=== PATIENT | female | born 1965 | race Caucasian/White ===

== ENCOUNTER 2016-12-08 17:04 | Emergency (ER) | payer SELFPAY ==
[~2016-12-08] VITALS: Ht 157.5 cm; Wt 58.0 kg
[2016-12-08 17:05] VITALS: BP 126/88; PULSE 128; RESP 24; TEMP 97.8; O2SAT 99
[2016-12-08] MEDS ORDERED: SODIUM CHLOR 0.9% 1000 ML INJ 1,000 ML IV ONE ×2 (17:45→19:00)
[2016-12-08] MEDS ORDERED: oxyCODONE/ACETAMINOPHEN 5 MG/325 MG TAB PO ONE (17:45)
[2016-12-08 18:19] VITALS: BP 159/67; PULSE 103; RESP 18; O2SAT 97
[2016-12-08] MEDS ORDERED: GEMF600T PO (18:19)
[2016-12-08] MEDS ORDERED: ZOFR8TAB PO (18:19)
[2016-12-08] MEDS ORDERED: PROT40TA PO (18:19)
[2016-12-08] MEDS ORDERED: LEVS0.124 SL (18:19)
[2016-12-08] MEDS ORDERED: OMEG1CAP53 PO (18:19)
[2016-12-08] MEDS ORDERED: EFFE150C PO (18:19)
[2016-12-08] MEDS ORDERED: PROM25TA5 PO (18:19)
[2016-12-08 18:21] VITALS: BP 159/67; PULSE 103; RESP 18; O2SAT 97
[2016-12-08] MEDS ORDERED: CLON1TAB PO ×2 (18:24→20:31)
[2016-12-08] MEDS ORDERED: IMIT100T PO (18:24)
[2016-12-08] MEDS ORDERED: ELUX1TAB PO (18:24)
[2016-12-08] MEDS ORDERED: ESTR2TAB PO (18:24)
[2016-12-08] MEDS ORDERED: VALT500T PO (18:24)
[2016-12-08] MEDS ORDERED: PERC10TA27 PO (18:24)
--- NOTE | 2016-12-08 18:28 | PD ---
HPI Chief Complaint: Fall Time Seen by Provider: 17:21 Travel History International Travel<30 days: No Contact w/Intl Traveler<30days: No History of Present Illness HPI The patient's 51 years old. She arrives stating that she had a fall from standing 6 days ago. She states she had a head injury last year and had a CT done and thought there may have been swelling. She complains of chronic osteoarthritic pain involving the spine in the toes and hands. She reports a history of pain management. Outside records demonstrate hx panic attacks. Pt recently moved to the area she states and has been unable to obtain PMD follow up or pain management. Patient denies illicit drug abuse. She denies alcohol abuse. She complains of paresthesias in the upper extremities. PFSH Past Surgical History Hysterectomy: Yes Social History Tobacco Use: Yes Allergies-Medications (Allergen,Severity, Reaction): Coded Allergies: No Known Allergies (Unverified , 12/08/16) Reported Meds & Prescriptions Reported Meds & Active Scripts Active Clonazepam 1 Mg Tab 1 Mg PO BID PRN 7 Days Reported Percocet (Oxycodone-Acetaminophen) 10-325 mg Tab 1 Tab PO Q6H PRN Imitrex (Sumatriptan Succinate) 100 Mg Tab 100 Mg PO BID PRN If a satisfactory response has not been obtained at 2 hours, a second dose may be administered Estradiol 2 Mg Tab 2 Mg PO DAILY Valtrex (Valacyclovir HCl) 500 Mg Tab 500 Mg PO DAILY Viberzi (Eluxadoline) 75 Mg Tab 75 Mg PO BIDPC Zofran (Ondansetron HCl) 8 Mg Tab 8 Mg PO BID PRN Phenergan (Promethazine HCl) 25 Mg Tab 25 Mg PO BID PRN Protonix (Pantoprazole Sodium) 40 Mg Tab 40 Mg PO DAILY Effexor XR 24 HR (Venlafaxine HCl) 150 Mg Cap 300 Mg PO DAILY Levsin-SL (Hyoscyamine Sulfate) 0.125 Mg Subl 0.125 Mg SL Q4H PRN Gemfibrozil 600 Mg Tab 600 Mg PO BID Take 30 minutes prior to breakfast and dinner. Lovaza (Msiuv-9-Vovm Ethyl Esters) 1 Gm Cap 2 Gm PO BID Review of Systems Except as stated in HPI: all other systems reviewed are Neg General / Constitutional: No: Fever Physical Exam Narrative GENERAL: 51 yo female anxious, WNWD SKIN: Focused skin assessment warm/dry. HEAD: Atraumatic. Normocephalic. EYES: Pupils equal and round. No scleral icterus. No injection or drainage. ENT: No nasal bleeding or discharge. Mucous membranes pink and moist. NECK: Trachea midline. No JVD. CARDIOVASCULAR: Tachycardia. Regular rhythm. RESPIRATORY: No accessory muscle use. Clear to auscultation. Breath sounds equal bilaterally. GASTROINTESTINAL: Abdomen soft, non-tender, nondistended. Hepatic and splenic margins not palpable. MUSCULOSKELETAL: No obvious deformities. No clubbing. No cyanosis. No edema. NEUROLOGICAL: Awake and alert. No obvious cranial nerve deficits. Motor grossly within normal limits. Normal speech. PSYCHIATRIC: Anxious. Data Data Last Documented VS Vital Signs Date Time Temp Pulse Resp B/P Pulse Ox O2 Delivery O2 Flow Rate FiO2 12/08/16 19:53 96 16 149/65 99 Room Air 12/08/16 17:05 97.8 VS reviewed Orders Complete Blood Count With Diff (12/08/16 17:32) Comprehensive Metabolic Panel (12/08/16 17:32) Urinalysis - C+S If Indicated (12/08/16 17:32) Oximetry (12/08/16 17:32) Iv Access Insert/Monitor (12/08/16 17:32) Ecg Monitoring (12/08/16 17:32) Drug Screen, Random Urine (12/08/16 17:32) Alcohol (Ethanol) (12/08/16 17:32) Salicylates (Aspirin) (12/08/16 17:32) Tylenol (Acetaminophen) (12/08/16 17:32) Sodium Chlor 0.9% 1000 Ml Inj (Ns 1000 M (12/08/16 17:45) Oxycodone-Acetamin 5-325 Mg (Percocet (12/08/16 17:45) Lorazepam Inj (Ativan Inj) (12/08/16 19:00) Sodium Chlor 0.9% 1000 Ml Inj (Ns 1000 M (12/08/16 19:00) Urine Culture (12/08/16 17:45) Labs Laboratory Tests Test 12/08/16 17:45 Sodium Level 136 MEQ/L Potassium Level 4.0 MEQ/L Chloride Level 99 MEQ/L Carbon Dioxide Level 24.6 MEQ/L Anion Gap 12 MEQ/L Blood Urea Nitrogen 9 MG/DL Creatinine 0.90 MG/DL Estimat Glomerular Filtration 66 ML/MIN Rate Random Glucose 83 MG/DL Calcium Level 9.8 MG/DL Total Bilirubin 1.4 MG/DL Aspartate Amino Transf 181 U/L (AST/SGOT) Alanine Aminotransferase 102 U/L (ALT/SGPT) Alkaline Phosphatase 194 U/L Total Protein 8.8 GM/DL Albumin 4.3 GM/DL Salicylates Level LESS THAN 1.7 MG/DL Urine Opiates Screen NEG Acetaminophen Level LESS THAN 2.0 MCG/ML Urine Barbiturates Screen NEG Urine Amphetamines Screen NEG Urine Benzodiazepines Screen NEG Urine Cocaine Screen NEG Urine Cannabinoids Screen NEG Ethyl Alcohol Level LESS THAN 3 MG/DL White Blood Count 7.4 TH/MM3 Red Blood Count 3.75 MIL/MM3 Hemoglobin 14.1 GM/DL Hematocrit 41.0 % Mean Corpuscular Volume 109.4 FL Mean Corpuscular Hemoglobin 37.7 PG Mean Corpuscular Hemoglobin 34.5 % Concent Red Cell Distribution Width 14.3 % Platelet Count 239 TH/MM3 Mean Platelet Volume 8.9 FL Neutrophils (%) (Auto) 73.7 % Lymphocytes (%) (Auto) 18.2 % Monocytes (%) (Auto) 7.1 % Eosinophils (%) (Auto) 0.7 % Basophils (%) (Auto) 0.3 % Neutrophils # (Auto) 5.5 TH/MM3 Lymphocytes # (Auto) 1.3 TH/MM3 Monocytes # (Auto) 0.5 TH/MM3 Eosinophils # (Auto) 0.1 TH/MM3 Basophils # (Auto) 0.0 TH/MM3 CBC Comment DIFF FINAL Differential Comment Urine Color YELLOW Urine Turbidity HAZY Urine pH 6.0 Urine Specific Antler 1.019 Urine Protein TRACE mg/dL Urine Glucose (UA) NEG mg/dL Urine Ketones NEG mg/dL Urine Occult Blood NEG Urine Nitrite NEG Urine Bilirubin NEG Urine Urobilinogen 4.0 MG/DL Urine Leukocyte Esterase NEG Urine WBC 2 /hpf Urine Squamous Epithelial 1 /hpf Cells Urine Bacteria MANY /hpf Urine Hyaline Casts 4 /lpf Urine Mucus FEW /lpf Microscopic Urinalysis Comment CULTURE INDICATED MDM Medical Decision Making Medical Screen Exam Complete: Yes Emergency Medical Condition: Yes Differential Diagnosis Chronic pain, electrolyte imbalance, PSA, opioid withdrawal, benzodiazepine withdrawal, etoh withdrawal Narrative Course CBC & BMP Diagram 12/08/16 17:45 MCV 109 T bili 1.4 AST 181 ALT 102 Alk phos 194 Urine Drug Screen: barnett-negative EtOH < 3 APAP < 2.0 Salicylates < 1.7 Patient confers offensive statements to provider at time of reassessment at 740PM. She states again she was admitted to hospitals in the past. She offers that she is not here in search of opioids/narcotics. Previously she offers that Dilaudid was required to treat her pain. The patient arrives with rhinorrhea, tachycardia, piloerection and anxiety, a constellation of symptoms consistent with opioid and/or benzodiazepine withdrawal. The patient is familiar with specific dosing and various opioid agents. The patient's fall occurred 5 days ago such that her arrival today is somewhat atypical. She also notes drinking alcohol last night however denies etoh to RN and me initially. She asked the RN if she would get her scripts however did not mention medication refills to me. The patient began to negotiate and angrily disagree at the time of discussion for discharge plan. To within a reasonable degree of certainty and safety a true emergency has been excluded. We cannot manage her chronic pain issues with opioids. A short course of Klonopin is reasonable to prevent any potential benzodiazepine withdrawal. Referrals to providers in the area made available on discharge paperwork. Pt is AOx3 and competent to make decisions independently. At least 60 minutes of time was spent in conversation with the patient, reviewing the case with her RN, checking her records on [facility], and reassessing the patient. Diagnosis Primary Impression: Anxiety Additional Impressions: Fall Qualified Code: W19.XXXA - Fall, initial encounter Transaminitis Macrocytosis without anemia Referrals: Justino Candelario MD 2 days [facility] 2 days Additional Instructions: You have a choice when it comes to health care, and we are glad that you chose [facility]. Hopefully, we have met your expectations on today's visit. You are welcome to return to [facility] at any time, as we are committed to meeting the health care needs of our community. Med/Other Pt SpecificInfo: Prescription(s) given Scripts Clonazepam 1 Mg Tab1 Mg PO BID PRN (ANXIETY) 7 Days Ref 0 Prov:John Heck MD 12/08/16 Disposition: DISCHARGE HOME Condition: Stable John Heck. MD December 08, 2016 18:28
[2016-12-08 18:29] LABS: AUTOMATED NEUTROPHIL # 5.5 TH/MM3 (1.8-7.7); BASOPHIL % 0.3 % (0.0-2.0); EOSINOPHIL # 0.1 TH/MM3 (0-0.4); EOSINOPHIL % 0.7 % (0.0-4.0); HEMO FLAGS DIFF FINAL; LYMPH % 18.2 % (9.0-44.0); LYMPHOCYTE # 1.3 TH/MM3 (1.0-4.8); MEAN CELL VOLUME 109.4 FL (80.0-100.0); MEAN CORPUSCULAR HEMOGLOBIN 37.7 PG (27.0-34.0); MEAN CORPUSCULAR HGB CONC 34.5 % (32.0-36.0); MONO % 7.1 % (0.0-8.0); NEUT % 73.7 % (16.0-70.0); PLATELET COUNT 239 TH/MM3 (150-450); RED BLOOD COUNT 3.75 MIL/MM3 (4.00-5.30); RED CELL DISTRIBUTION WIDTH 14.3 % (11.6-17.2); WHITE BLOOD COUNT 7.4 TH/MM3 (4.0-11.0)
[2016-12-08 18:55] LABS: ANION GAP 12 MEQ/L (5-15)
[2016-12-08 18:58] LABS: ALKALINE PHOSPHATASE 194 U/L (45-117); ALT (GPT) 102 U/L (10-53); AST (GOT) 181 U/L (15-37); BICARBONATE 24.6 MEQ/L (21.0-32.0); BLOOD UREA NITROGEN 9 MG/DL (7-18); CHLORIDE 99 MEQ/L (98-107); GLOMERULAR FILTRATION RATE 66 ML/MIN (>89); SODIUM (NA) 136 MEQ/L (136-145); TOTAL BILIRUBIN ADULT 1.4 MG/DL (0.2-1.0)
[2016-12-08 18:59] LABS: BACTERIA, URINE MANY /hpf; BLOOD, URINE NEG (NEG); COMMENT (UR) CULTURE INDICATED; CULTURE IF INDICATED CULTURE INDICATED; GLUCOSE,URINE NEG (NEG); HYALINE CAST, URINE 4 /lpf (RARE); KETONE, URINE NEG (NEG); MUCUS URINE FEW /lpf (OCC); NITRITE,URINE NEG (NEG); SQUAMOUS EPITHELIAL CELL URINE 1 /hpf (0-5); URINE COLOR YELLOW (YELLW/STRAW)
[2016-12-08] MEDS ORDERED: LORazepam 2 MG/ML VIAL IV PUSH ONE (19:00)
[2016-12-08 19:04] LABS: ACETAMINOPHEN LESS THAN 2.0 MCG/ML (10.0-30.0)
[2016-12-08 19:21] LABS: AMPHETAMINE, URINE NEG (NEG); BARBITURATES, URINE NEG (NEG); COCAINE, URINE NEG (NEG)
[2016-12-08 19:53] VITALS: BP 149/65; PULSE 96; RESP 16; O2SAT 99
== END 2016-12-08 21:21 | disposition home or self-care (01) ==
LOC: NEPD 17:04
DX: F41.9 Anxiety disorder, unspecified (principal); D75.89 Other specified diseases of blood and blood-forming organs; R74.0 Nonspecific elevation of levels of transaminase and lactic acid dehydrogenase [LDH]; N39.0 Urinary tract infection, site not specified; B96.20 Unspecified Escherichia coli [E. coli] as the cause of diseases classified elsewhere; Z79.899 Other long term (current) drug therapy
CPT/HCPCS: 80053; 80307; 81001; 85025; 87077; 87086; 87186; 96361; 96374; 99284; J2060; J7030

== ENCOUNTER 2017-05-31 00:52 | Inpatient (IN) | payer OTHER ==
[2017-05-31] VITALS (12 sets, daily range): BP systolic 107–175; BP diastolic 57–92; PULSE 84–119; RESP 18–22; TEMP 98–98.6; O2SAT 95–98
[~2017-05-31] VITALS: Ht 157.5 cm; Wt 66.0 kg
[~2017-05-31 00:52] MED LIST: CLON1TAB PO; EFFE150C PO; ELUX1TAB PO; ESTR2TAB PO; GEMF600T PO; IMIT100T PO; LEVS0.124 SL; OMEG1CAP53 PO; PERC10TA27 PO; PROM25TA5 PO; PROT40TA PO; VALT500T PO; ZOFR8TAB PO
[2017-05-31] MEDS ORDERED: LEVO50TA4 PO (01:41)
[2017-05-31] MEDS ORDERED: SODIUM CHLOR 0.9% 1000 ML INJ 1,000 ML IV SCH ×3 (01:44→04:14)
[2017-05-31] MEDS ORDERED: ONDANSETRON HCL 4 MG/2 ML VIAL IVP ONE (01:45)
[2017-05-31] MEDS ORDERED: SODIUM CHLORIDE 0.9% FLUSH 10 ML FLUSH IV FLUSH PRN (01:45)
--- NOTE | 2017-05-31 01:53 | PD ---
HPI Chief Complaint: Abdominal Pain Time Seen by Provider: 01:44 Travel History International Travel<30 days: No Contact w/Intl Traveler<30days: No Traveled to known affect area: No History of Present Illness HPI 52-year-old female here for evaluation of generalized malaise, nausea, vomiting , generalized pain, abdominal pain. Patient reports symptoms have been going on for just less than a week. Emesis is bilious. She is not sure when she had her last bowel movement. She has had similar symptoms in the past when she was diagnosed with pyelonephritis. She has felt chills, but is unsure if she has had a fever. History of cholecystectomy, hysterectomy, section, tummy tuck. Pain is diffuse, severe, described as sharp/cramping. PFSH Past Medical History Arthritis: Yes Anxiety: Yes Diverticulitis: Yes GERD: Yes Genitourinary: Yes (KIDNEY INFECTIONS) Thyroid Disease: Yes (HYPO ) Triglycerides - High: Yes Tetanus Vaccination: > 5 Years Influenza Vaccination: No ?: Not Tubal Ligation: Yes Past Surgical History Section: Yes Cholecystectomy: Yes Hysterectomy: Yes Other Surgery: Yes (TUMMY TUCK, RHINOPLASTY, BREAST AUGMENTATION) Social History Alcohol Use: No Tobacco Use: No Substance Use: No Allergies-Medications (Allergen,Severity, Reaction): Coded Allergies: NSAIDS (Non-Steroidal Anti-Inflamma (Verified Adverse Reaction, Intermediate, Nausea/Vomiting, 05/31/17) metronidazole (Verified Adverse Reaction, Intermediate, Nausea/Vomiting, 05/31/17) Reported Meds & Prescriptions Reported Meds & Active Scripts Active Clonazepam 1 Mg Tab 1 Mg PO BID PRN 7 Days Reported Levothyroxine (Levothyroxine Sodium) 50 Mcg Tab 50 Mcg PO DAILY Percocet (Oxycodone-Acetaminophen) 10-325 mg Tab 1 Tab PO Q6H PRN Imitrex (Sumatriptan Succinate) 100 Mg Tab 100 Mg PO BID PRN If a satisfactory response has not been obtained at 2 hours, a second dose may be administered Valtrex (Valacyclovir HCl) 500 Mg Tab 500 Mg PO DAILY Zofran (Ondansetron HCl) 8 Mg Tab 8 Mg PO BID PRN Effexor XR 24 HR (Venlafaxine HCl) 150 Mg Cap 300 Mg PO DAILY Levsin-SL (Hyoscyamine Sulfate) 0.125 Mg Subl 0.125 Mg SL Q4H PRN Gemfibrozil 600 Mg Tab 600 Mg PO BID Take 30 minutes prior to breakfast and dinner. Lovaza (Hcloh-8-Nvuz Ethyl Esters) 1 Gm Cap 2 Gm PO BID Review of Systems Except as stated in HPI: all other systems reviewed are Neg Physical Exam Narrative GENERAL: Well-developed, well-nourished, tearful, SKIN: Focused skin assessment warm/dry. HEAD: Atraumatic. Normocephalic. EYES: Pupils equal and round. No scleral icterus. No injection or drainage. ENT: Mucous membranes pink and moist. NECK: Trachea midline. No JVD. No nuchal rigidity. CARDIOVASCULAR: Tachycardic, regular. RESPIRATORY: No accessory muscle use. Clear to auscultation. Breath sounds equal bilaterally. GASTROINTESTINAL: Abdomen soft, nondistended. Mild diffuse tenderness without peritoneal signs. MUSCULOSKELETAL: No obvious deformities. No clubbing. No cyanosis. No edema. NEUROLOGICAL: Awake and alert. No obvious cranial nerve deficits. Motor grossly within normal limits. Normal speech. PSYCHIATRIC: Appropriate mood and affect; insight and judgment normal. Data Data Last Documented VS Vital Signs Date Time Temp Pulse Resp B/P (MAP) Pulse Ox O2 Delivery O2 Flow Rate FiO2 05/31/17 04:00 100 18 146/65 (92) 98 Room Air 05/31/17 00:53 98.5 Orders Orders Complete Blood Count With Diff (05/31/17 01:44) Comprehensive Metabolic Panel (05/31/17 01:44) Lipase (05/31/17 01:44) Prothrombin Time / Inr (Pt) (05/31/17 01:44) Act Partial Throm Time (Ptt) (05/31/17 01:44) Urinalysis - C+S If Indicated (05/31/17 01:44) Iv Access Insert/Monitor (05/31/17 01:44) Ecg Monitoring (05/31/17 01:44) Oximetry (05/31/17 01:44) Ondansetron Inj (Zofran Inj) (05/31/17 01:45) Sodium Chlor 0.9% 1000 Ml Inj (Ns 1000 M (05/31/17 01:44) Sodium Chloride 0.9% Flush (Ns Flush) (05/31/17 01:45) Thyroid Stimulating Hormone (10/26/17 01:44) Morphine Inj (Morphine Inj) (05/31/17 02:00) Ct Abd/Pel W Iv Contrast(Rout) (05/31/17 01:49) Sodium Chlor 0.9% 1000 Ml Inj (Ns 1000 M (05/31/17 01:49) Urine Culture (05/31/17 01:50) Ckmb (Isoenzyme) Profile (05/31/17 02:52) Troponin I (05/31/17 02:52) Alcohol (Ethanol) (05/31/17 02:52) Lorazepam Inj (Ativan Inj) (05/31/17 03:00) Tylenol (Acetaminophen) (05/31/17 02:52) Electrocardiogram (05/31/17 ) Ceftriaxone Inj (Rocephin Inj) (05/31/17 03:00) Iohexol 350 Inj (Omnipaque 350 Inj) (05/31/17 03:10) CKMB (05/31/17 01:40) CKMB% (05/31/17 01:40) Morphine Inj (Morphine Inj) (05/31/17 04:00) Admit Order (Ed Use Only) (05/31/17 04:16) Place In Observation (05/31/17 ) Vital Signs (Adult) Q4H (05/31/17 04:14) Activity Oob Ad Kiesha (05/31/17 04:14) Lead Simulation Modeling Engineer / Telemetry .CONTINUOUS (05/31/17 04:14) Intake + Output PATRICIA.QSHIFT (05/31/17 04:14) Diet Regular Basic (05/31/17 Breakfast) Sodium Chlor 0.9% 1000 Ml Inj (Ns 1000 M (05/31/17 04:14) Sodium Chloride 0.9% Flush (Ns Flush) (05/31/17 04:15) Sodium Chloride 0.9% Flush (Ns Flush) (05/31/17 09:00) Ondansetron Inj (Zofran Inj) (05/31/17 04:15) Comprehensive Metabolic Panel (06/01/17 06:00) Complete Blood Count With Diff (06/01/17 06:00) Prothrombin Time / Inr (Pt) (06/01/17 06:00) Scd Bilateral/Knee High PATRICIA.BID (05/31/17 04:14) Armando Bilateral/Knee High PATRICIA.QSHIFT (05/31/17 04:16) Acetaminophen (Tylenol) (05/31/17 04:15) Morphine Inj (Morphine Inj) (05/31/17 04:15) Oxycodone (Roxicodone) (05/31/17 04:15) Docusate Sodium-Senna (Beatriz-Colace) (05/31/17 09:00) Magnesium Hydroxide Liq (Milk Of Magnesi (05/31/17 04:15) Sennosides (Senokot) (05/31/17 04:15) Bisacodyl Supp (Dulcolax Supp) (05/31/17 04:15) Lactulose Liq (Lactulose Liq) (05/31/17 04:15) Ceftriaxone Inj (Rocephin Inj) (06/01/17 06:00) Lorazepam Inj (Ativan Inj) (05/31/17 04:15) Labs Laboratory Tests Test 05/31/17 01:40 05/31/17 01:50 White Blood Count 8.8 TH/MM3 Red Blood Count 3.92 MIL/MM3 Hemoglobin 14.7 GM/DL Hematocrit 42.4 % Mean Corpuscular Volume 108.3 FL Mean Corpuscular Hemoglobin 37.6 PG Mean Corpuscular Hemoglobin Concent 34.8 % Red Cell Distribution Width 14.5 % Platelet Count 194 TH/MM3 Mean Platelet Volume 8.7 FL Neutrophils (%) (Auto) 78.6 % Lymphocytes (%) (Auto) 13.9 % Monocytes (%) (Auto) 6.8 % Eosinophils (%) (Auto) 0.5 % Basophils (%) (Auto) 0.2 % Neutrophils # (Auto) 6.9 TH/MM3 Lymphocytes # (Auto) 1.2 TH/MM3 Monocytes # (Auto) 0.6 TH/MM3 Eosinophils # (Auto) 0.0 TH/MM3 Basophils # (Auto) 0.0 TH/MM3 CBC Comment DIFF FINAL Differential Comment Prothrombin Time 13.2 SEC Prothromb Time International Ratio 1.2 RATIO Activated Partial Thromboplast Time 28.7 SEC Blood Urea Nitrogen 8 MG/DL Creatinine 0.83 MG/DL Random Glucose 115 MG/DL Total Protein 8.9 GM/DL Albumin 4.1 GM/DL Calcium Level 10.1 MG/DL Alkaline Phosphatase 343 U/L Aspartate Amino Transf (AST/SGOT) 458 U/L Alanine Aminotransferase (ALT/SGPT) 230 U/L Total Bilirubin 2.7 MG/DL Sodium Level 138 MEQ/L Potassium Level 3.4 MEQ/L Chloride Level 101 MEQ/L Carbon Dioxide Level 24.7 MEQ/L Anion Gap 12 MEQ/L Estimat Glomerular Filtration Rate 72 ML/MIN Total Creatine Kinase 101 U/L Creatine Kinase MB 0.7 NG/ML Troponin I LESS THAN 0.02 NG/ML Lipase 66 U/L Thyroid Stimulating Hormone 3rd Gen 5.740 uIU/ML Acetaminophen Level LESS THAN 2.0 MCG/ML Ethyl Alcohol Level LESS THAN 3 MG/DL Urine Color ORANGE Urine Turbidity HAZY Urine pH 6.5 Urine Specific Holden 1.029 Urine Protein 30 mg/dL Urine Glucose (UA) NEG mg/dL Urine Ketones NEG mg/dL Urine Occult Blood NEG Urine Nitrite NEG Urine Bilirubin NEG Urine Urobilinogen GREATER THAN 12.0 MG/DL Urine Leukocyte Esterase TRACE Urine RBC 1 /hpf Urine WBC LESS THAN 1 /hpf Urine Squamous Epithelial Cells 1 /hpf Urine Bacteria MANY /hpf Urine Mucus FEW /lpf Microscopic Urinalysis Comment CULTURE INDICATED MDM Medical Decision Making Medical Screen Exam Complete: Yes Emergency Medical Condition: Yes Interpretation(s) EKG: Sinus, rate 86, normal axis, normal intervals, no acute ischemic abnormality. Differential Diagnosis Bowel obstruction, dehydration, UTI, pyelonephritis, acute intra-abdominal process Narrative Course Initial vital signs show heart rate 119, blood pressure 175/92, pulse ox 96% on room air, oral temp of 98.5 from high. CBC: WBC 8.8, hemoglobin 14.7, hematocrit 42.4, platelets 194, MCV is 108.3. CMP is remarkable for TB bili 2.7, AST 458, ALT 2:30, alkaline phosphatase 343. TSH is 5.74. Lipase is 66. UA shows hazy urine, 30 protein, greater than 12 urobilinogen, many bacteria. Patient was made aware of laboratory findings. I inquired about alcohol use, and she states that she drinks one or 2 drinks daily at night with dinner. She is on Percocet 4 times a day for chronic back pain, but denies abusing this medication or taking Tylenol. She denies history of hepatitis. On reassessment she states that she is having sharp substernal chest pain that radiates to her back. EKG and cardiac enzymes added. Cardiac enzymes are negative. Tylenol level and alcohol levels are negative. CT abdomen pelvis: CONCLUSION: 1. Severe hepatic steatosis. 2. 2.5 cm splenic low-density lesion, likely benign. 3. Status post cholecystectomy. 4. No bowel obstruction. Patient was made aware of all findings. She is still complaining of abdominal pain despite receiving 2 doses of narcotic pain medications. She also still feels nauseous. She'll be admitted for further treatment and evaluation of intractable abdominal pain, transaminitis. Case discussed with hospitalist Dr. Juarez who will admit the patient to her service. Diagnosis Primary Impression: Intractable abdominal pain Additional Impressions: Transaminitis Bacteriuria Admitting Information Admitting Physician Requests: Vijay Melissa MD May 31, 2017 01:53
[2017-05-31] MEDS ORDERED: MORPHINE SULFATE 4 MG/ML INJ IV PUSH ONE ×2 (02:00→04:00)
[2017-05-31 02:10] LABS: BACTERIA, URINE MANY /hpf; BLOOD, URINE NEG (NEG); GLUCOSE,URINE NEG (NEG); KETONE, URINE NEG (NEG); MUCUS URINE FEW /lpf (OCC); NITRITE,URINE NEG (NEG); PH, URINE 6.5 (5.0-8.5); SQUAMOUS EPITHELIAL CELL URINE 1 /hpf (0-5); URINE LEUKOCYTE ESTERASE TRACE (NEG)
[2017-05-31 02:11] LABS: AUTOMATED NEUTROPHIL # 6.9 TH/MM3 (1.8-7.7); BASOPHIL % 0.2 % (0.0-2.0); EOSINOPHIL % 0.5 % (0.0-4.0); HEMATOCRIT 42.4 % (35.0-46.0); HEMOGLOBIN 14.7 GM/DL (11.6-15.3); LYMPH % 13.9 % (9.0-44.0); LYMPHOCYTE # 1.2 TH/MM3 (1.0-4.8); MEAN CELL VOLUME 108.3 FL (80.0-100.0); MEAN CORPUSCULAR HEMOGLOBIN 37.6 PG (27.0-34.0); MEAN CORPUSCULAR HGB CONC 34.8 % (32.0-36.0); MEAN PLATELET VOLUME 8.7 FL (7.0-11.0); MONO % 6.8 % (0.0-8.0); MONOCYTE # 0.6 TH/MM3 (0-0.9); NEUT % 78.6 % (16.0-70.0); PLATELET COUNT 194 TH/MM3 (150-450); RED BLOOD COUNT 3.92 MIL/MM3 (4.00-5.30); RED CELL DISTRIBUTION WIDTH 14.5 % (11.6-17.2); WHITE BLOOD COUNT 8.8 TH/MM3 (4.0-11.0)
[2017-05-31 02:12] LABS: BILIRUBIN, URINE NEG (NEG); URINE COLOR ORANGE (YELLW/STRAW)
[2017-05-31 02:22] LABS: INTERNATIONAL NORMALIZED RATIO 1.2 RATIO; PROTHROMBIN TIME - PATIENT 13.2 SEC (9.8-11.6)
[2017-05-31 02:38] LABS: ALKALINE PHOSPHATASE 343 U/L (45-117); TOTAL BILIRUBIN ADULT 2.7 MG/DL (0.2-1.0); TOTAL PROTEIN 8.9 GM/DL (6.4-8.2)
[2017-05-31 02:44] LABS: ALBUMIN 4.1 GM/DL (3.4-5.0); ALT (GPT) 230 U/L (10-53); AST (GOT) 458 U/L (15-37); BICARBONATE 24.7 MEQ/L (21.0-32.0); BLOOD UREA NITROGEN 8 MG/DL (7-18); CALCIUM 10.1 MG/DL (8.5-10.1); CHLORIDE 101 MEQ/L (98-107); CREATININE 0.83 MG/DL (0.50-1.00); GLOMERULAR FILTRATION RATE 72 ML/MIN (>89); GLUCOSE,RANDOM 115 MG/DL (74-106); LIPASE 66 U/L (73-393); SODIUM (NA) 138 MEQ/L (136-145)
[2017-05-31] MEDS ORDERED: LORazepam 2 MG/ML VIAL IV PUSH ONE (03:00)
[2017-05-31] MEDS ORDERED: cefTRIAXone INJ 1,000 MG in SODIUM CHLORIDE 0.9% INJ 100 ML IV ONE (03:00)
[2017-05-31] MEDS ORDERED: IOHEXOL 350 MG/ML 10 ML VIAL (for RAD DIAG) IVCONTRAST ONE (03:10)
[2017-05-31 03:21] LABS: ACETAMINOPHEN LESS THAN 2.0 MCG/ML (10.0-30.0); TROPONIN I LESS THAN 0.02 NG/ML (0.02-0.05)
--- NOTE | 2017-05-31 04:03 | RADRPT ---
EXAM DATE/TIME: 05/31/2017 03:06 [facility] COMPARISON: No previous studies available for comparison. INDICATIONS : Abdomen pain woth vomting. IV CONTRAST: 95 cc Omnipaque 350 (iohexol) IV ORAL CONTRAST: No oral contrast ingested. RADIATION DOSE: 7.11 CTDIvol (mGy) MEDICAL HISTORY : Diverticulitis. SURGICAL HISTORY : Cholecystectomy. section. ENCOUNTER: Initial ACUITY: 4 - 6 days PAIN SCALE: 6/10 LOCATION: abdomen TECHNIQUE: Volumetric scanning of the abdomen and pelvis was performed. Using automated exposure control and ad justment of the mA and/or kV according to patient size, radiation dose was kept as low as reasonably achievable to obtain optimal diagnostic quality images. DICOM format image data is available electro nically for review and comparison. FINDINGS: LOWER LUNGS: The visualized lower lungs are clear. LIVER: Decreased attenuation without lesion. There is no dilation of the biliary tree. Cholecystectomy clip s. SPLEEN: Normal size with 2.5 cm low-density lesion. PANCREAS: Within normal limits. KIDNEYS: Normal in size and shape. There is no mass, stone or hydronephrosis. ADRENAL GLANDS: Within normal limits. VASCULAR: There is no aortic aneurysm. BOWEL/MESENTERY: The stomach, small bowel, and colon demonstrate no acute abnormality. There is no free intraperitone al air or fluid. ABDOMINAL WALL: Within normal limits. RETROPERITONEUM: There is no lymphadenopathy. BLADDER: No wall thickening or mass. REPRODUCTIVE: Within normal limits. INGUINAL: There is no lymphadenopathy or hernia. MUSCULOSKELETAL: Within normal limits for patient age. CONCLUSION: 1. Severe hepatic steatosis. 2. 2.5 cm splenic low-density lesion, likely benign. 3. Status post cholecystectomy. 4. No bowel obstruction. Alex Barcenas MD on May 31, 2017 at 3:59 Board Certified Radiologist. This report was verified electronically.
[2017-05-31] MEDS ORDERED: SENNOSIDES 8.6 MG TAB PO PRN (04:15)
[2017-05-31] MEDS ORDERED: BISACODYL 10 MG SUPP RECTAL PRN (04:15)
[2017-05-31] MEDS ORDERED: LACTULOSE SYRUP 20 GM/30 ML CUP PO PRN (04:15)
[2017-05-31] MEDS ORDERED: ACETAMINOPHEN 325 MG TAB PO PRN (04:15)
[2017-05-31] MEDS ORDERED: MAGNESIUM HYDROXIDE SUSP 30 ML CUP PO PRN (04:15)
--- NOTE | 2017-05-31 04:41 | HHI.HP ---
[facility] Jonny Love DO Admission Diagnosis intractable abdominal pain, transaminitis Diagnoses: (1) Intractable abdominal pain Diagnosis: Principal (2) UTI (urinary tract infection) Diagnosis: Principal (3) Macrocytosis without anemia Diagnosis: Principal (4) Elevated LFTs Diagnosis: Principal Travel History International Travel<30 Days: No Contact w/Intl Traveler <30 Da: No Traveled to Known Affected Are: No History of Present Illness This is a 52-year-old female with a PMH of Anxiety, GERD, Hyperlipidemia and Hypothyroidism who presented to the ER with complaints of abdominal pain in addition to nausea and vomiting x1 wk. Denies fever, chills or diarrhea. States unable to take PO due to persistent nausea/vomiting. No h/o similar symptoms. On arrival, BP 175/92, HR 119, O2 sat 96% on RA, Afebrile. CBC unremarkable except for MCV 108.3, previously 109.4 on 12/08/16. K+ 3.4. GFR 72. LFTs mildly increased in comparison to previous labs from 12/08/16. Troponin negative. TSH 5.74. Lipase 66. 0.2. Alcohol negative. Tylenol negative. UA with UTI. CT Abd/Pelvis w/ severe hepatic steatosis, 2.5 cm splenic low-density lesion likely benign. S/p multiple doses of Morphine IV, Ativan and Zofran w/ minimal improvement. Review of Systems Except as stated in HPI: all other systems reviewed are Neg ROS: 14 point review of systems otherwise negative. Past Family Social History Past Medical History PMH: Anxiety, GERD, Hyperlipidemia and Hypothyroidism Past Surgical History PAST SURGICAL HISTORY: , Cholecystectomy, Hysterectomy, Tummy Tuck, Rhinoplasty, Breast Augmentation Allergies: Coded Allergies: NSAIDS (Non-Steroidal Anti-Inflamma (Verified Adverse Reaction, Intermediate, Nausea/Vomiting, 05/31/17) metronidazole (Verified Adverse Reaction, Intermediate, Nausea/Vomiting, 05/31/17) Family History PAST FAMILY HISTORY: Reviewed. No h/o DM or CAD Social History PAST SOCIAL HISTORY: Denies alcohol, tobacco or drugs. Physical Exam Vital Signs Vital Signs Date Time Temp Pulse Resp B/P (MAP) Pulse Ox O2 Delivery O2 Flow Rate FiO2 05/31/17 04:00 100 18 146/65 (92) 98 Room Air 05/31/17 02:00 100 18 123/69 (87) 98 Room Air 05/31/17 00:53 98.5 119 22 175/92 (119) 96 Room Air Physical Exam PE: GENERAL: Middle-aged female in mild distress secondary to pain, anxious, tearful. HEENT: PERRLA, EOMI. No scleral icterus or conjunctival pallor. No lid lag or facial droop. CARDIOVASCULAR: Regular rate and rhythm. No obvious murmurs to auscultation. No chest tenderness to palpation. RESPIRATORY: No obvious rhonchi or wheezing. Clear to auscultation. Breath sounds equal bilaterally. GASTROINTESTINAL: Abdomen soft, generalized tenderness to palpation, nondistended. BS normal. MUSCULOSKELETAL: Extremities without clubbing, cyanosis, or edema. No obvious deformities. NEUROLOGICAL: Awake, alert and oriented x4. No focal neurologic deficits. Moving both upper and lower extremities spontaneously. Laboratory Laboratory Tests Test 05/31/17 01:40 05/31/17 01:50 White Blood Count 8.8 Red Blood Count 3.92 Hemoglobin 14.7 Hematocrit 42.4 Mean Corpuscular Volume 108.3 Mean Corpuscular Hemoglobin 37.6 Mean Corpuscular Hemoglobin Concent 34.8 Red Cell Distribution Width 14.5 Platelet Count 194 Mean Platelet Volume 8.7 Neutrophils (%) (Auto) 78.6 Lymphocytes (%) (Auto) 13.9 Monocytes (%) (Auto) 6.8 Eosinophils (%) (Auto) 0.5 Basophils (%) (Auto) 0.2 Neutrophils # (Auto) 6.9 Lymphocytes # (Auto) 1.2 Monocytes # (Auto) 0.6 Eosinophils # (Auto) 0.0 Basophils # (Auto) 0.0 CBC Comment DIFF FINAL Differential Comment Prothrombin Time 13.2 Prothromb Time International Ratio 1.2 Activated Partial Thromboplast Time 28.7 Blood Urea Nitrogen 8 Creatinine 0.83 Random Glucose 115 Total Protein 8.9 Albumin 4.1 Calcium Level 10.1 Alkaline Phosphatase 343 Aspartate Amino Transf (AST/SGOT) 458 Alanine Aminotransferase (ALT/SGPT) 230 Total Bilirubin 2.7 Sodium Level 138 Potassium Level 3.4 Chloride Level 101 Carbon Dioxide Level 24.7 Anion Gap 12 Estimat Glomerular Filtration Rate 72 Total Creatine Kinase 101 Creatine Kinase MB 0.7 Troponin I LESS THAN 0.02 Lipase 66 Thyroid Stimulating Hormone 3rd Gen 5.740 Acetaminophen Level LESS THAN 2.0 Ethyl Alcohol Level LESS THAN 3 Urine Color ORANGE Urine Turbidity HAZY Urine pH 6.5 Urine Specific [place] 1.029 Urine Protein 30 Urine Glucose (UA) NEG Urine Ketones NEG Urine Occult Blood NEG Urine Nitrite NEG Urine Bilirubin NEG Urine Urobilinogen GREATER THAN 12.0 Urine Leukocyte Esterase TRACE Urine RBC 1 Urine WBC LESS THAN 1 Urine Squamous Epithelial Cells 1 Urine Bacteria MANY Urine Mucus FEW Microscopic Urinalysis Comment CULTURE INDICATED Date/Time Source Procedure Growth Status 05/31/17 01:50 Urine Random Urine Urine Culture Pending Received Result Diagram: 05/31/1713905/31/17139 Caprinlukasz VTE Risk Assessment Reginald VTE Risk Assessment: No/Low Risk (score <= 1) Caprini Risk Assessment Model Point Value = 1 Point Value = 2 Point Value = 3 Point Value = 5 Age 41-60 Minor surgery BMI > 25 kg/m2 Swollen legs Varicose veins or History of unexplained or recurrent spontaneous Oral contraceptives or hormone replacement Sepsis (< 1 month) Serious lung disease, including pneumonia (< 1 month) Abnormal pulmonary function Acute myocardial infarction Congestive heart failure (< 1 month) History of inflammatory bowel disease Medical patient at bed rest Age 61-74 Arthroscopic surgery Major open surgery (> 45 min) Laparoscopic surgery (> 45 min) Malignancy Confined to bed (> 72 hours) Immobilizing plaster cast Central venous access Age >= 75 History of VTE Family history of VTE Factor V Leiden Prothrombin [id number] Lupus anticoagulant Anticardiolipin antibodies Elevated serum homocysteine Heparin-induced thrombocytopenia Other congenital or acquired thrombophilia Stroke (< 1 month) Elective arthroplasty Hip, pelvis, or leg fracture Acute spinal cord injury (< 1 month) Prophylaxis Regimen Total Risk Factor Score Risk Level Prophylaxis Regimen 0-1 Low Early ambulation 2 Moderate Order ONE of the following: *Sequential Compression Device (SCD) *Heparin 5000 units SQ BID 3-4 Higher Order ONE of the following medications: *Heparin 5000 units SQ TID *Enoxaparin/Lovenox 40 mg SQ daily (WT < 150 kg, CrCl > 30 mL/min) *Enoxaparin/Lovenox 30 mg SQ daily (WT < 150 kg, CrCl > 10-29 mL/min) *Enoxaparin/Lovenox 30 mg SQ BID (WT < 150 kg, CrCl > 30 mL/min) AND/OR *Sequential Compression Device (SCD) 5 or more Highest Order ONE of the following medications: *Heparin 5000 units SQ TID (Preferred with Epidurals) *Enoxaparin/Lovenox 40 mg SQ daily (WT < 150 kg, CrCl > 30 mL/min) *Enoxaparin/Lovenox 30 mg SQ daily (WT < 150 kg, CrCl > 10-29 mL/min) *Enoxaparin/Lovenox 30 mg SQ BID (WT < 150 kg, CrCl > 30 mL/min) AND *Sequential Compression Device (SCD) Assessment and Plan Problem List: (1) Intractable abdominal pain ICD Code: R10.9 - Unspecified abdominal pain Status: Acute (2) UTI (urinary tract infection) ICD Code: N39.0 - Urinary tract infection, site not specified (3) Macrocytosis without anemia ICD Code: D75.89 - Other specified diseases of blood and blood-forming organs Status: Acute (4) Elevated LFTs ICD Code: R79.89 - Other specified abnormal findings of blood chemistry Assessment and Plan A/P: 1. Intractable Abdominal Pain: unclear etiology, CT Abd/Pelvis w/ severe steatosis, no other acute findings, images reviewed by me. S/p multiple doses of Morphine, Ativan and Zofran w/ minimal improvement. Continue analgesics/ antiemetics as needed. IVF for hydration, diet as tolerated. 2. UTI: U/a w/ UTI, s/p Rocephin IV in ER, continue w/ IV Abx, IVF for hydration. 3. Elevated LFTs: Acute on Chronic, increased in comparison to previous labs from 12/08/16, CT Abd/Pelvis w/ steatosis as above, pt denies h/o Alcohol Abuse or Hepatitis. Tylenol negative. Monitor LFTs, repeat labs in am 4. Macrocytosis: Chronic. As above, denies alcohol abuse, Alcohol level negative. 5. DVT Prophylaxis: INR mildly increased at 1.2, not on anticoagulation. SCD/ Teds. 6. Social work for d/c planning as needed. 7. Case discussed w/ ER physician at length. Eduarda Juarez MD May 31, 2017 04:41
[2017-05-31] MEDS: ONDANSETRON HCL 4 MG/2 ML VIAL IVP PRN ×3 (04:45→18:49)
[2017-05-31] MEDS: MORPHINE SULFATE 4 MG/ML INJ IV PUSH PRN ×5 (04:45→23:29)
[2017-05-31] MEDS: LEVOTHYROXINE SODIUM 75 MCG TAB PO SCH (07:55)
[2017-05-31] MEDS ORDERED: clonazePAM 1 MG TAB PO PRN (08:00)
[2017-05-31] MEDS: DOCUSATE SODIUM 50 MG/SENNA 8.6 MG TAB PO SCH ×2 (09:00→20:29)
[2017-05-31] MEDS ORDERED: VENLAFAXINE HCL XR 75 MG CAP PO SCH (09:00)
--- NOTE | 2017-05-31 09:42 | HHI.PR ---
Subjective Remarks Follow-up for nausea, vomiting, abdominal pain. The patient states she was hospitalized 4 times/year with somewhat similar symptoms. Most of this time it was secondary to urine and kidney infections. She did stated they found some infections in her colon on evaluation last year for similar symptoms, although she had diarrhea at that time. Currently she has been having nausea, vomiting, abdominal pain with diarrhea for the past several days. She is tolerating some water and ice chips. She denies any problems with her liver in the past. She does occasionally drink socially, but not to excess because she is on chronic pain medicine for her neck and lower back. She states that she never has urinary symptoms with her previous infections, denies any dysuria or urinary frequency. She states she had a fever of 99.0 at home yesterday and has been getting sweats whenever she vomits. She denies any marijuana use. She states the Zofran has helped the nausea some, but is also requesting Phenergan. Objective Vitals Vital Signs Date Time Temp Pulse Resp B/P (MAP) Pulse Ox O2 Delivery O2 Flow Rate FiO2 05/31/17 08:03 98.0 94 22 123/66 (85) 96 05/31/17 06:56 94 05/31/17 05:48 98.6 111 18 123/61 (81) 95 05/31/17 05:11 20 05/31/17 05:06 05/31/17 04:00 100 18 146/65 (92) 98 Room Air 05/31/17 02:00 100 18 123/69 (87) 98 Room Air 05/31/17 00:53 98.5 119 22 175/92 (119) 96 Room Air I/O 05/30/17 05/30/17 05/30/17 05/31/17 05/31/17 05/31/17 07:00 15:00 23:00 07:00 15:00 23:00 Intake Total 2100 ml Balance 2100 ml Intake IV Total 2100 ml Result Diagram: 05/31/1713905/31/17139 Imaging Last Impressions Abdomen/Pelvis CT 05/31/17148 Signed Impressions: Service Date/Time: May 03:06 - CONCLUSION: 1. Severe hepatic steatosis. 2. 2.5 cm splenic low-density lesion, likely benign. 3. Status post cholecystectomy. 4. No bowel obstruction. Alex Barcenas MD Objective Remarks GENERAL: Well-developed well-nourished. In no acute distress. SKIN: Warm and dry. No lesions noted. HEENT: Normocephalic. Pupils equal and round. Mucous membranes pink and moist. CARDIOVASCULAR: Regular rate and rhythm. No murmur appreciated. RESPIRATORY: No accessory muscle use. Clear to auscultation. Breath sounds equal bilaterally. GASTROINTESTINAL: Abdomen soft, nondistended. Epigastric TTP. Bowel sounds x4. MUSCULOSKELETAL: No obvious deformities. No clubbing or cyanosis. No edema. NEUROLOGICAL: Awake and alert. No focal neurological deficits. Moves upper and lower extremities spontaneously. Normal speech. PSYCHIATRIC: Slightly anxious mood and affect; insight and judgment normal. A/P Problem List: (1) Intractable abdominal pain ICD Code: R10.9 - Unspecified abdominal pain Status: Acute (2) UTI (urinary tract infection) ICD Code: N39.0 - Urinary tract infection, site not specified (3) Elevated LFTs ICD Code: R79.89 - Other specified abnormal findings of blood chemistry Status: Acute Assessment and Plan 52-year-old female with a PMH of Anxiety, GERD, Hyperlipidemia and Hypothyroidism who presented with complaints of abdominal pain, nausea, and vomiting x1 wk Abdominal pain, nausea, vomiting: Reviewed: CT Abd/Pelvis w/ severe steatosis, , likely benign splenic lesion, s/ p cholecystectomy, no obstruction or other acute findings. Lipase within normal limits. LFTs as below. -Continue Zofran and add Phenergan as needed for nausea -IVF -IV PPI -Clear liquids for now -Consult gastroenterology -Continue pain control with oxycodone and IV morphine as needed UTI: U/a w/ evidence of possible UTI. -Continue empiric IV Rocephin for now and follow-up urine culture. Transaminitis: Bilirubin, AST, ALT, alkaline phosphatase all significantly elevated from previous, were mildly elevated on previous labs in December. CT Abd/ Pelvis w/ steatosis as above. Pt denies h/o Alcohol Abuse or Hepatitis. Tylenol negative. -Repeat LFTs. -Check hepatitis panel. -Consult GI. Hypothyroidism: TSH elevated, patient reports compliance with levothyroxine -Will increase levothyroxine to 75 g daily. Hypokalemia: Potassium 3.4, likely from vomiting. -Potassium replacement by IV -Repeat BMP and check magnesium level Anxiety/depression: Chronic. -Continue home Effexor and Klonopin as needed DVT Prophylaxis: INR mildly increased at 1.2, not on anticoagulation. SCD/ Teds. Discharge Planning Monitor for clinical improvement and follow-up GI recommendations. D/W case management, meets inpatient criteria. John Stephen May 31, 2017 09:42
[2017-05-31] MEDS: NS + KCL 20 MEQ INJ 1,000 ML IV SCH ×2 (10:48→20:29)
[2017-05-31] MEDS: SODIUM CHLORIDE 0.9% FLUSH 10 ML FLUSH IV FLUSH SCH ×2 (10:48→20:29)
[2017-05-31] MEDS: PANTOPRAZOLE SODIUM 40 MG VIAL IV PUSH SCH (10:51)
[2017-05-31] MEDS: PROMETHAZINE HCL 25 MG SUPP RECTAL PRN (13:42)
--- NOTE | 2017-05-31 14:31 | PD.CONS ---
HPI History of Present Illness This is a 52 year old female with hx GERD, hypothyroid, kidney infections, chronic pain who presented with abd pain, n/v for the last five days. Yesterday the n/v intensified and she came to ER. She was found to have elevated LFTs. She is having epigastric pain that radiates to the back and lower abd aching. Last BM 2d ago, scant loose stool yesterday. No blood in stool or emesis, no coffee grounds. Her chronic pain has been worse in the last week, to the point she cannot tolerate her physical therapy. SHe had an episode of similar symptoms 3 times last year. Last EGD & colonoscopy was 2015 in [place], findings were "inflammation" stomach, fungus in colon. s/p cholecystectomy. Drinks 1 -2 drinks daily. Takes percocets, 4 daily. PFSH Past Medical History PMH: Anxiety, GERD, Hyperlipidemia and Hypothyroidism, PTSD with panic attacks Past Surgical History PAST SURGICAL HISTORY: , Cholecystectomy, Hysterectomy, Tummy Tuck, Rhinoplasty, Breast Augmentation Coded Allergies: NSAIDS (Non-Steroidal Anti-Inflamma (Verified Adverse Reaction, Intermediate, Nausea/Vomiting, 05/31/17) metronidazole (Verified Adverse Reaction, Intermediate, Nausea/Vomiting, 05/31/17) Family History PAST FAMILY HISTORY: Reviewed. No h/o DM or CAD Social History 1-2 drinks daily quit smoking 30 y ago no illicit drug use Review of Systems Constitutional: DENIES: Fever, Weight loss Ears, nose, mouth, throat: DENIES: Hearing loss Respiratory: DENIES: Hemoptysis Cardiovascular: COMPLAINS OF: Chest pain Gastrointestinal: COMPLAINS OF: Abdominal pain, Nausea, Vomiting, DENIES: Black stools, Bloody stools, Constipation, Diarrhea, Hematemesis Genitourinary: DENIES: Hematuria Musculoskeletal: DENIES: Joint Swelling Integumentary: DENIES: Rash Neurologic: DENIES: Localized weakness Psychiatric: DENIES: Confusion GI Exam Vitals I&O Vital Signs Date Time Temp Pulse Resp B/P (MAP) Pulse Ox O2 Delivery O2 Flow Rate FiO2 05/31/17 11:55 96 05/31/17 11:52 98.3 100 22 130/70 (90) 95 05/31/17 08:03 98.0 94 22 123/66 (85) 96 05/31/17 07:25 101 05/31/17 06:56 94 05/31/17 05:48 98.6 111 18 123/61 (81) 95 05/31/17 05:11 20 05/31/17 05:06 05/31/17 04:00 100 18 146/65 (92) 98 Room Air 05/31/17 02:00 100 18 123/69 (87) 98 Room Air 05/31/17 00:53 98.5 119 22 175/92 (119) 96 Room Air I/O 05/30/17 05/30/17 05/30/17 05/31/17 05/31/17 05/31/17 07:00 15:00 23:00 07:00 15:00 23:00 Intake Total 2100 ml Balance 2100 ml Intake IV Total 2100 ml # Voids 2 Imaging Last Impressions Abdomen/Pelvis CT 05/31/17 0149 Signed Impressions: Service Date/Time: May 03:06 - CONCLUSION: 1. Severe hepatic steatosis. 2. 2.5 cm splenic low-density lesion, likely benign. 3. Status post cholecystectomy. 4. No bowel obstruction. Alex Barcenas MD Laboratory Test 05/31/17 01:40 05/31/17 01:50 White Blood Count 8.8 TH/MM3 Red Blood Count 3.92 MIL/MM3 Hemoglobin 14.7 GM/DL Hematocrit 42.4 % Mean Corpuscular Volume 108.3 FL Mean Corpuscular Hemoglobin 37.6 PG Mean Corpuscular Hemoglobin Concent 34.8 % Red Cell Distribution Width 14.5 % Platelet Count 194 TH/MM3 Mean Platelet Volume 8.7 FL Neutrophils (%) (Auto) 78.6 % Lymphocytes (%) (Auto) 13.9 % Monocytes (%) (Auto) 6.8 % Eosinophils (%) (Auto) 0.5 % Basophils (%) (Auto) 0.2 % Neutrophils # (Auto) 6.9 TH/MM3 Lymphocytes # (Auto) 1.2 TH/MM3 Monocytes # (Auto) 0.6 TH/MM3 Eosinophils # (Auto) 0.0 TH/MM3 Basophils # (Auto) 0.0 TH/MM3 CBC Comment DIFF FINAL Differential Comment Prothrombin Time 13.2 SEC Prothromb Time International Ratio 1.2 RATIO Activated Partial Thromboplast Time 28.7 SEC Blood Urea Nitrogen 8 MG/DL Creatinine 0.83 MG/DL Random Glucose 115 MG/DL Total Protein 8.9 GM/DL Albumin 4.1 GM/DL Calcium Level 10.1 MG/DL Alkaline Phosphatase 343 U/L Aspartate Amino Transf (AST/SGOT) 458 U/L Alanine Aminotransferase (ALT/SGPT) 230 U/L Total Bilirubin 2.7 MG/DL Sodium Level 138 MEQ/L Potassium Level 3.4 MEQ/L Chloride Level 101 MEQ/L Carbon Dioxide Level 24.7 MEQ/L Anion Gap 12 MEQ/L Estimat Glomerular Filtration Rate 72 ML/MIN Total Creatine Kinase 101 U/L Creatine Kinase MB 0.7 NG/ML Troponin I LESS THAN 0.02 NG/ML Lipase 66 U/L Thyroid Stimulating Hormone 3rd Gen 5.740 uIU/ML Acetaminophen Level LESS THAN 2.0 MCG/ML Ethyl Alcohol Level LESS THAN 3 MG/DL Urine Color ORANGE Urine Turbidity HAZY Urine pH 6.5 Urine Specific [place] 1.029 Urine Protein 30 mg/dL Urine Glucose (UA) NEG mg/dL Urine Ketones NEG mg/dL Urine Occult Blood NEG Urine Nitrite NEG Urine Bilirubin NEG Urine Urobilinogen GREATER THAN 12.0 MG/DL Urine Leukocyte Esterase TRACE Urine RBC 1 /hpf Urine WBC LESS THAN 1 /hpf Urine Squamous Epithelial Cells 1 /hpf Urine Bacteria MANY /hpf Urine Mucus FEW /lpf Microscopic Urinalysis Comment CULTURE INDICATED Urine Opiates Screen NEG Urine Barbiturates Screen NEG Urine Amphetamines Screen NEG Urine Benzodiazepines Screen NEG Urine Cocaine Screen NEG Urine Cannabinoids Screen NEG Date/Time Source Procedure Growth Status 05/31/17 01:50 Urine Random Urine Urine Culture Pending Received Physical Examination HEENT: PERRL; normocephalic; atraumatic; no jaundice. CHEST: CTA CARDIAC: RRR ABDOMEN: Soft, nondistended, diffuse TTP; no hepatosplenomegaly; bowel sounds are present in all four quadrants. EXTREMITIES: No clubbing, cyanosis, or edema. SKIN: Normal; no rash; no jaundice. SALES DEVELOPER: No focal deficits; alert and oriented times three. Assessment and Plan Plan ASSESSMENT - abd pain, n/v - diffuse abd pain with sharp epigastric pains radiating to back. CT showing splenic lesion prob benign, severe hepatic steatosis. - elevated LFTs - tbil 2.7, AST 458, ALT 230, ALP 343. lipase WNL. s/p lap sivakumar. hep panel pending PLAN - liver w/u - MRCP - if MRCP neg consider EGD +/- colonoscopy - monitor LFTs - supportive care - further recs to follow This pt seen by myself and Dr Pinto and this note is written on his behalf Ariana Gonsales May 31, 2017 14:30
--- NOTE | 2017-05-31 14:51 | EKG ---
Date Performed: 05/31/2017 Time Performed: 02:57:58 PTAGE: 52 years EKG: Sinus rhythm NORMAL ECG NO PREVIOUS TRACING DOCTOR: Maggi Gaytan Interpretating Date/Time 05/31/2017 14:46:08
--- NOTE | 2017-05-31 14:51 | EKG ---
Date Performed: 05/31/2017 Time Performed: 02:57:58 PTAGE: 52 years EKG: Sinus rhythm NORMAL ECG NO PREVIOUS TRACING DOCTOR: Maggi Gaytan Interpretating Date/Time 05/31/2017 14:46:08
--- NOTE | 2017-05-31 14:51 | EKG ---
Date Performed: 05/31/2017 Time Performed: 02:57:58 PTAGE: 52 years EKG: Sinus rhythm NORMAL ECG NO PREVIOUS TRACING DOCTOR: Maggi Gaytan Interpretating Date/Time 05/31/2017 14:46:08
[2017-05-31 21:23] LABS: ALBUMIN 3.3 GM/DL (3.4-5.0); BICARBONATE 23.3 MEQ/L (21.0-32.0); CALCIUM 8.9 MG/DL (8.5-10.1); CREATININE 0.72 MG/DL (0.50-1.00); DIRECT BILIRUBIN ADULT 1.1 MG/DL (0.0-0.2); INDIRECT BILIRUBIN 0.8 MG/DL (0.0-0.8); MAGNESIUM 1.6 MG/DL (1.5-2.5); TOTAL BILIRUBIN ADULT 1.9 MG/DL (0.2-1.0); TOTAL PROTEIN 7.2 GM/DL (6.4-8.2)
[2017-05-31] MEDS ORDERED: POTASSIUM CHLORIDE 10 MEQ CONTROLLED RELEASE TAB PO ONE (21:45)
[2017-05-31] MEDS: POTASSIUM CHLOR 20 MEQ PREMIX 100 ML IV SCH (23:27)
[2017-06-01] VITALS (10 sets, daily range): BP systolic 138–152; BP diastolic 65–79; PULSE 83–106; RESP 16–26; TEMP 97.7–99.2; O2SAT 96–100
[2017-06-01] MEDS: POTASSIUM CHLOR 20 MEQ PREMIX 100 ML IV SCH (01:21)
[2017-06-01] MEDS: ONDANSETRON HCL 4 MG/2 ML VIAL IVP PRN ×4 (01:21→21:35)
[2017-06-01] MEDS: SODIUM CHLORIDE 0.9% FLUSH 10 ML FLUSH IV FLUSH PRN ×2 (01:22→05:38)
[2017-06-01] MEDS: LEVOTHYROXINE SODIUM 75 MCG TAB PO SCH (05:38)
[2017-06-01] MEDS: cefTRIAXone INJ 1,000 MG in SODIUM CHLORIDE 0.9% INJ 100 ML IV SCH (05:39)
[2017-06-01] MEDS: MORPHINE SULFATE 4 MG/ML INJ IV PUSH PRN ×4 (05:40→17:51)
[2017-06-01 07:27] LABS: AUTOMATED NEUTROPHIL # 4.3 TH/MM3 (1.8-7.7); BASOPHIL % 0.4 % (0.0-2.0); EOSINOPHIL # 0.1 TH/MM3 (0-0.4); EOSINOPHIL % 1.4 % (0.0-4.0); HEMATOCRIT 38.8 % (35.0-46.0); LYMPH % 22.6 % (9.0-44.0); LYMPHOCYTE # 1.4 TH/MM3 (1.0-4.8); MEAN CELL VOLUME 110.4 FL (80.0-100.0); MEAN CORPUSCULAR HEMOGLOBIN 37.1 PG (27.0-34.0); MEAN CORPUSCULAR HGB CONC 33.6 % (32.0-36.0); MEAN PLATELET VOLUME 8.3 FL (7.0-11.0); MONO % 7.5 % (0.0-8.0); MONOCYTE # 0.5 TH/MM3 (0-0.9); NEUT % 68.1 % (16.0-70.0); PLATELET COUNT 153 TH/MM3 (150-450); RED BLOOD COUNT 3.51 MIL/MM3 (4.00-5.30); RED CELL DISTRIBUTION WIDTH 14.9 % (11.6-17.2); WHITE BLOOD COUNT 6.3 TH/MM3 (4.0-11.0)
[2017-06-01 07:31] LABS: INTERNATIONAL NORMALIZED RATIO 1.3 RATIO
[2017-06-01 08:01] LABS: % SATURATION IRON PROFILE 23.3 % (20-50); ALBUMIN 3.5 GM/DL (3.4-5.0); ALKALINE PHOSPHATASE 262 U/L (45-117); ALT (GPT) 165 U/L (10-53); AST (GOT) 272 U/L (15-37); BICARBONATE 23.7 MEQ/L (21.0-32.0); BLOOD UREA NITROGEN 4 MG/DL (7-18); CALCIUM 8.9 MG/DL (8.5-10.1); CHLORIDE 106 MEQ/L (98-107); CREATININE 0.59 MG/DL (0.50-1.00); FERRITIN 764 NG/ML (8-252); GLOMERULAR FILTRATION RATE 107 ML/MIN (>89); GLUCOSE,RANDOM 81 MG/DL (74-106); IRON (FE) 61 MCG/DL (50-170); SODIUM (NA) 138 MEQ/L (136-145); TOTAL IRON BINDING CAPACITY 262 MCG/DL (250-450); TOTAL PROTEIN 7.8 GM/DL (6.4-8.2)
[2017-06-01] MEDS: DOCUSATE SODIUM 50 MG/SENNA 8.6 MG TAB PO SCH ×2 (09:00→19:29)
[2017-06-01 10:11] LABS: HEPATITIS A AB IGM NEGATIVE (NEGATIVE); HEPATITIS B SURFACE ANTIGEN NEGATIVE (NEGATIVE); HEPATITIS C AB IgG NEGATIVE (NEGATIVE)
[2017-06-01] MEDS: SODIUM CHLORIDE 0.9% FLUSH 10 ML FLUSH IV FLUSH SCH ×2 (10:23→21:35)
[2017-06-01] MEDS: VENLAFAXINE HCL XR 75 MG CAP PO SCH (10:23)
[2017-06-01] MEDS: PANTOPRAZOLE SODIUM 40 MG VIAL IV PUSH SCH (10:23)
--- NOTE | 2017-06-01 12:09 | HHI.PR ---
Subjective Remarks This is a 52-year-old female with a PMH of Anxiety, GERD, Hyperlipidemia and Hypothyroidism who presented to the ER with complaints of abdominal pain in addition to nausea and vomiting x1 wk. Denies fever, chills or diarrhea. States unable to take PO due to persistent nausea/vomiting. No h/o similar symptoms. On arrival, BP 175/92, HR 119, O2 sat 96% on RA, Afebrile. CBC unremarkable except for MCV 108.3, previously 109.4 on 12/08/16. K+ 3.4. GFR 72. LFTs mildly increased in comparison to previous labs from 12/08/16. Troponin negative. TSH 5.74. Lipase 66. 0.2. Alcohol negative. Tylenol negative. UA with UTI. CT Abd/Pelvis w/ severe hepatic steatosis, 2.5 cm splenic low-density lesion likely benign. S/p multiple doses of Morphine IV, Ativan and Zofran w/ minimal improvement. 05-31 Follow-up for nausea, vomiting, abdominal pain. The patient states she was hospitalized 4 times/year with somewhat similar symptoms. Most of this time it was secondary to urine and kidney infections. She did stated they found some infections in her colon on evaluation last year for similar symptoms , although she had diarrhea at that time. Currently she has been having nausea , vomiting, abdominal pain with diarrhea for the past several days. She is tolerating some water and ice chips. She denies any problems with her liver in the past. She does occasionally drink socially, but not to excess because she is on chronic pain medicine for her neck and lower back. She states that she never has urinary symptoms with her previous infections, denies any dysuria or urinary frequency. She states she had a fever of 99.0 at home yesterday and has been getting sweats whenever she vomits. She denies any marijuana use. She states the Zofran has helped the nausea some, but is also requesting Phenergan. 06-01 HAD MRI OF ABDOMEN- RESULTS PENDING IS COMPLAINING OF PAIN ALL OVER AND NAUSEA AND VOMITING BUT ONLY PRODUCING SALIVA AT THIS TIME DW RN AND PT AWAIT MRI MAY NEED EGD AND COLONOSCOPY POSSIBLE DRUG SEEKING BEHAVIOR Objective Vitals Vital Signs Date Time Temp Pulse Resp B/P (MAP) Pulse Ox O2 Delivery O2 Flow Rate FiO2 06/01/17 08:36 99.2 90 24 144/67 (92) 97 06/01/17 04:14 96 06/01/17 04:07 98.4 97 18 152/71 (98) 96 06/01/17 00:07 98.3 85 18 150/68 (95) 98 06/01/17 00:00 90 05/31/17 21:42 98.0 84 18 130/64 (86) 97 05/31/17 20:00 96 05/31/17 15:39 98.4 92 20 107/57 (74) 96 I/O 05/31/17 05/31/17 05/31/17 06/01/17 06/01/17 06/01/17 07:00 15:00 23:00 07:00 15:00 23:00 Intake Total 2100 ml 580 ml Output Total 200 ml 600 ml Balance 2100 ml 380 ml -600 ml Intake IV Total 2100 ml 580 ml Output Urine Total 200 ml 600 ml # Voids 2 3 # Bowel Movements 1 Result Diagram: 06/01/17 0650 06/01/17 0650 Other Results Laboratory Tests Test 05/31/17 01:40 05/31/17 01:50 05/31/17 20:19 06/01/17 06:50 White Blood Count 8.8 TH/MM3 6.3 TH/MM3 Red Blood Count 3.92 MIL/MM3 3.51 MIL/MM3 Hemoglobin 14.7 GM/DL 13.0 GM/DL Hematocrit 42.4 % 38.8 % Mean Corpuscular Volume 108.3 FL 110.4 FL Mean Corpuscular Hemoglobin 37.6 PG 37.1 PG Mean Corpuscular Hemoglobin Concent 34.8 % 33.6 % Red Cell Distribution Width 14.5 % 14.9 % Platelet Count 194 TH/MM3 153 TH/MM3 Mean Platelet Volume 8.7 FL 8.3 FL Neutrophils (%) (Auto) 78.6 % 68.1 % Lymphocytes (%) (Auto) 13.9 % 22.6 % Monocytes (%) (Auto) 6.8 % 7.5 % Eosinophils (%) (Auto) 0.5 % 1.4 % Basophils (%) (Auto) 0.2 % 0.4 % Neutrophils # (Auto) 6.9 TH/MM3 4.3 TH/MM3 Lymphocytes # (Auto) 1.2 TH/MM3 1.4 TH/MM3 Monocytes # (Auto) 0.6 TH/MM3 0.5 TH/MM3 Eosinophils # (Auto) 0.0 TH/MM3 0.1 TH/MM3 Basophils # (Auto) 0.0 TH/MM3 0.0 TH/MM3 CBC Comment DIFF FINAL DIFF FINAL Differential Comment Prothrombin Time 13.2 SEC 14.0 SEC Prothromb Time International Ratio 1.2 RATIO 1.3 RATIO Activated Partial Thromboplast Time 28.7 SEC Blood Urea Nitrogen 8 MG/DL 5 MG/DL 4 MG/DL Creatinine 0.83 MG/DL 0.72 MG/DL 0.59 MG/DL Random Glucose 115 MG/DL 99 MG/DL 81 MG/DL Total Protein 8.9 GM/DL 7.2 GM/DL 7.8 GM/DL Albumin 4.1 GM/DL 3.3 GM/DL 3.5 GM/DL Calcium Level 10.1 MG/DL 8.9 MG/DL 8.9 MG/DL Alkaline Phosphatase 343 U/L 245 U/L 262 U/L Aspartate Amino Transf (AST/SGOT) 458 U/L 281 U/L 272 U/L Alanine Aminotransferase (ALT/SGPT) 230 U/L 161 U/L 165 U/L Total Bilirubin 2.7 MG/DL 1.9 MG/DL 2.0 MG/DL Sodium Level 138 MEQ/L 141 MEQ/L 138 MEQ/L Potassium Level 3.4 MEQ/L 2.8 MEQ/L 3.6 MEQ/L Chloride Level 101 MEQ/L 107 MEQ/L 106 MEQ/L Carbon Dioxide Level 24.7 MEQ/L 23.3 MEQ/L 23.7 MEQ/L Anion Gap 12 MEQ/L 11 MEQ/L 8 MEQ/L Estimat Glomerular Filtration Rate 72 ML/MIN 85 ML/MIN 107 ML/MIN Total Creatine Kinase 101 U/L Creatine Kinase MB 0.7 NG/ML Troponin I LESS THAN 0.02 NG/ML Lipase 66 U/L Thyroid Stimulating Hormone 3rd Gen 5.740 uIU/ML Acetaminophen Level LESS THAN 2.0 MCG/ML Ethyl Alcohol Level LESS THAN 3 MG/DL Urine Color ORANGE Urine Turbidity HAZY Urine pH 6.5 Urine Specific [place] 1.029 Urine Protein 30 mg/dL Urine Glucose (UA) NEG mg/dL Urine Ketones NEG mg/dL Urine Occult Blood NEG Urine Nitrite NEG Urine Bilirubin NEG Urine Urobilinogen GREATER THAN 12.0 MG/DL Urine Leukocyte Esterase TRACE Urine RBC 1 /hpf Urine WBC LESS THAN 1 /hpf Urine Squamous Epithelial Cells 1 /hpf Urine Bacteria MANY /hpf Urine Mucus FEW /lpf Microscopic Urinalysis Comment CULTURE INDICATED Urine Opiates Screen NEG Urine Barbiturates Screen NEG Urine Amphetamines Screen NEG Urine Benzodiazepines Screen NEG Urine Cocaine Screen NEG Urine Cannabinoids Screen NEG Magnesium Level 1.6 MG/DL Direct Bilirubin 1.1 MG/DL Indirect Bilirubin 0.8 MG/DL Hepatitis A IgM Antibody NEGATIVE Hepatitis B Surface Antigen NEGATIVE Hepatitis B Core IgM Antibody NEGATIVE Hepatitis C Antibody NEGATIVE Iron Level 61 MCG/DL Total Iron Binding Capacity 262 MCG/DL Percent Iron Saturation 23.3 % Ferritin 764 NG/ML Imaging Last Impressions Abdomen/Pelvis CT 05/31/17 0149 Signed Impressions: Service Date/Time: May 03:06 - CONCLUSION: 1. Severe hepatic steatosis. 2. 2.5 cm splenic low-density lesion, likely benign. 3. Status post cholecystectomy. 4. No bowel obstruction. Alex Barcenas MD Objective Remarks GENERAL: Well-developed well-nourished. In no acute distress. IS TEARY EYED SKIN: Warm and dry. No lesions noted. HEENT: Normocephalic. Pupils equal and round. Mucous membranes pink and moist. EOMI, TONGUE IS MIDLINE CARDIOVASCULAR: Regular rate and rhythm. No murmur appreciated.S1, S2 NO S3 OR S4 RESPIRATORY: No accessory muscle use. Clear to auscultation. Breath sounds equal bilaterally. GASTROINTESTINAL: Abdomen soft, nondistended. Epigastric TTP. Bowel sounds x4.NOT SO TENDER ON MY EXAM MUSCULOSKELETAL: No obvious deformities. No clubbing or cyanosis. No edema. MOTOR STRENGTH 4 OUT OF 5 IN UE AND LE BL NEUROLOGICAL: Awake and alert. No focal neurological deficits. Moves upper and lower extremities spontaneously. Normal speech.CN 2 -12 INTACT PSYCHIATRIC: Slightly anxious mood and affect; insight and judgment normal. Medications and IVs Current Medications Ondansetron HCl (Zofran Inj) 4 mg ONCE ONCE IVP Last administered on 02:05; Start 05/31/17 at 01:45; Stop 05/31/17 at 01:46; Status DC Sodium Chloride 1,000 ml @ 1,000 mls/hr Q1H IV Last administered on 02:05; Start 05/31/17 at 01:44; Stop 05/31/17 at 02:43; Status DC Sodium Chloride (NS Flush) 2 ml UNSCH PRN IV FLUSH FLUSH AFTER USING IV ACCESS Last administered on 05/31/17 02:06; Start 05/31/17 at 01:45; Stop 05/31/17 at 04:29; Status DC Morphine Sulfate (Morphine Inj) 4 mg ONCE ONCE IV PUSH Last administered on 02:06; Start 05/31/17 at 02:00; Stop 05/31/17 at 02:01; Status DC Sodium Chloride 1,000 ml @ 1,000 mls/hr Q1H IV Last administered on 02:05; Start 05/31/17 at 01:49; Stop 05/31/17 at 02:48; Status DC Lorazepam (Ativan Inj) 1 mg ONCE ONCE IV PUSH Last administered on 05/31/17 03:02; Start 05/31/17 at 03:00; Stop 05/31/17 at 03:01; Status DC Ceftriaxone Sodium 1000 mg/ Sodium Chloride 100 ml @ 200 mls/hr ONCE ONCE IV Last administered on 05/31/17 03:57; Start 05/31/17 at 03:00; Stop 05/31/17 at 03:29; Status DC Iohexol (Omnipaque 350 Inj) 95 ml STK-MED ONCE IVCONTRAST Last administered on 05/31/17 03:10; Start 05/31/17 at 03:10; Stop 05/31/17 at 03:11; Status DC Morphine Sulfate (Morphine Inj) 4 mg ONCE ONCE IV PUSH Last administered on 04:01; Start 05/31/17 at 04:00; Stop 05/31/17 at 04:01; Status DC Sodium Chloride 1,000 ml @ 100 mls/hr Q10H IV Last administered on 05/31/17 05:45; Start 05/31/17 at 04:14; Stop 05/31/17 at 09:42; Status DC Sodium Chloride (NS Flush) 2 ml UNSCH PRN IV FLUSH FLUSH AFTER USING IV ACCESS Last administered on 06/01/17 05:38; Start 05/31/17 at 04:15 Sodium Chloride (NS Flush) 2 ml BID IV FLUSH Last administered on 06/01/17 10 :23; Start 05/31/17 at 09:00 Ondansetron HCl (Zofran Inj) 4 mg Q6H PRN IVP NAUSEA OR VOMITING Last administered on 06/01/17 08:49; Start 05/31/17 at 04:15 Acetaminophen (Tylenol) 650 mg Q8H PRN PO FEVER; Start 05/31/17 at 04:15 Morphine Sulfate (Morphine Inj) 2 mg Q3H PRN IV PUSH BREAKTHROUGH PAIN Last administered on 06/01/17 08:50; Start 05/31/17 at 04:15 Oxycodone HCl (Roxicodone) 5 mg Q4H PRN PO PAIN SCALE 3 TO 5; Start 05/31/17 at 04:15; Stop 05/31/17 at 08:02; Status DC Senna/Docusate Sodium (Beatriz-Colace) 1 tab BID PO Last administered on 20:29; Start 05/31/17 at 09:00 Magnesium Hydroxide (Milk Of Magnesia Liq) 30 ml Q12H PRN PO Mild constipation ; Start 05/31/17 at 04:15 Sennosides (Senokot) 17.2 mg Q12H PRN PO Moderate constipation; Start at 04:15 Bisacodyl (Dulcolax Supp) 10 mg DAILY PRN RECTAL SEVERE CONSITIPATION; Start 05/31/17 at 04:15 Lactulose (Lactulose Liq) 30 ml DAILY PRN PO SEVERE CONSITIPATION; Start 05/31 at 04:15 Ceftriaxone Sodium 1000 mg/ Sodium Chloride 100 ml @ 200 mls/hr Q24H IV Last administered on 06/01/17 05:39; Start 06/01/17 at 06:00 Lorazepam (Ativan Inj) 1 mg Q2H PRN IV PUSH AGITATION/WITHDRAWAL; Start at 04:15 Venlafaxine HCl (Effexor Xr) 300 mg DAILY PO ; Start 05/31/17 at 09:00; Stop 05/31/17 at 13:20; Status DC Levothyroxine Sodium (Synthroid) 75 mcg DAILY@0600 PO Last administered on 05:38; Start 05/31/17 at 08:00 Clonazepam (KlonoPIN) 1 mg BID PRN PO ANXIETY; Start 05/31/17 at 08:00 Oxycodone HCl (Roxicodone) 10 mg Q6H PRN PO PAIN 6-10 Last administered on 01:29; Start 05/31/17 at 08:15 Pantoprazole Sodium (Protonix Inj) 40 mg Q24H IV PUSH Last administered on 10:23; Start 05/31/17 at 11:00 Promethazine HCl (Phenergan Supp) 25 mg Q6H PRN RECTAL NAUSEA OR VOMITING Last administered on 05/31/17 13:42; Start 05/31/17 at 09:45 Potassium Chloride/Sodium Chloride 1,000 ml @ 100 mls/hr Q10H IV Last administered on 05/31/17 20:29; Start 05/31/17 at 09:45 Venlafaxine HCl (Effexor Xr) 150 mg DAILY PO Last administered on 06/01/17 10 :23; Start 06/01/17 at 09:00 Potassium Chloride (KCl) 50 meq ONCE ONCE PO Last administered on 05/31/17 21:54; Start 05/31/17 at 21:45; Stop 05/31/17 at 21:46; Status DC Potassium Chloride 100 ml @ 50 mls/hr Q2H IV Last administered on 06/01/17 01:21; Start 05/31/17 at 23:15; Stop 06/01/17 at 03:14; Status DC A/P Problem List: (1) Intractable abdominal pain ICD Code: R10.9 - Unspecified abdominal pain Status: Acute (2) UTI (urinary tract infection) ICD Code: N39.0 - Urinary tract infection, site not specified (3) Elevated LFTs ICD Code: R79.89 - Other specified abnormal findings of blood chemistry Status: Acute Assessment and Plan 52-year-old female with a PMH of Anxiety, GERD, Hyperlipidemia and Hypothyroidism who presented with complaints of abdominal pain, nausea, and vomiting x1 wk Abdominal pain, nausea, vomiting: Reviewed: CT Abd/Pelvis w/ severe steatosis, , likely benign splenic lesion, s/ p cholecystectomy, no obstruction or other acute findings. Lipase within normal limits. LFTs as below. -Continue Zofran and add Phenergan as needed for nausea -IVF -IV PPI -Clear liquids for now -Consult gastroenterology -Continue pain control with oxycodone and IV morphine as needed UTI: U/a w/ evidence of possible UTI. -Continue empiric IV Rocephin for now and follow-up urine culture. Transaminitis: Bilirubin, AST, ALT, alkaline phosphatase all significantly elevated from previous, were mildly elevated on previous labs in December. CT Abd/ Pelvis w/ steatosis as above. Pt denies h/o Alcohol Abuse or Hepatitis. Tylenol negative. -Repeat LFTs. -Check hepatitis panel. -Consult GI. Hypothyroidism: TSH elevated, patient reports compliance with levothyroxine -Will increase levothyroxine to 75 g daily. Hypokalemia: Potassium 3.4, likely from vomiting. -Potassium replacement by IV -Repeat BMP and check magnesium level Anxiety/depression: Chronic. -Continue home Effexor and Klonopin as needed DVT Prophylaxis: INR mildly increased at 1.2, not on anticoagulation. SCD/ Teds. Discharge Planning AWAIT GI CLEARANCE Luis Felipe Briscoe DO Jun 01, 2017 12:09
--- NOTE | 2017-06-01 12:15 | RADRPT ---
EXAM DATE/TIME: 06/01/2017 09:02 [facility] COMPARISON: CT ABDOMEN & PELVIS W CONTRAST, May 31, 2017, 3:06. INDICATIONS : Abdominal pain. MEDICAL HISTORY : None. SURGICAL HISTORY : Cholecystectomy. Hysterectomy. section. Breast implants. ENCOUNTER: Initial ACUITY: 1 day PAIN SCORE: 5/10 LOCATION: Abdomen TECHNIQUE: Multiplanar, multisequence magnetic resonance imaging of the abdomen was performed. High-resolution 3D dataset was utilized to reconstruct maximum-intensity projection (MIP) images. FINDINGS: INTRAHEPATIC BILE DUCTS: Within normal limits. No significant anatomical variant is present. EXTRAHEPATIC BILE DUCTS: The common bile duct measures 6.3 mm. No stone or filling defect is identified. GALLBLADDER: Susceptibility artifact in the gallbladder bed characteristic of prior cholecystectomy. LIVER: Very heterogeneous signal intensity characteristic of scattered fatty infiltration. No concerning jon er lesion is identified on this non-contrast exam. PANCREAS: The main pancreatic duct is normal in size. There is no significant anatomical variant. Signal inte nsity is within normal limits. No mass is visualized on this non-contrast exam. OTHER: The remaining visualized structures demonstrate no acute abnormality on this non-contrast exam. Benig n-appearing 2.8 cm cyst posteriorly in the spleen. Bilateral breast augmentation. CONCLUSION: 1. Intra-and extrahepatic biliary ducts are patent without stone disease. CBD is upper limits of norm al post cholecystectomy. 2. Very heterogeneous signal intensity throughout the liver characteristic of scattered hepatic fatty infiltration. 3. Benign-appearing 2.8 cm cyst posteriorly in the splenic parenchyma. Raji Marshall MD on June 01, 2017 at 11:49 Board Certified Radiologist. This report was verified electronically.
[2017-06-01] MEDS: NS + KCL 20 MEQ INJ 1,000 ML IV SCH ×2 (15:15→15:45)
--- NOTE | 2017-06-01 15:56 | HHI.GIFU ---
Subjective Remarks Resting in bed. Tearful and appears anxious. States that she has not been able to tolerate po or even taking her pills all day and c/o nausea/vomiting. The nurse reports that she has not had any actual vomiting for her this shift. She reports that she started having diarrhea today, 2 loose stools. Objective Vitals I&O Vital Signs Date Time Temp Pulse Resp B/P (MAP) Pulse Ox O2 Delivery O2 Flow Rate FiO2 06/01/17 15:15 19 06/01/17 12:14 99.2 93 24 141/74 (96) 97 06/01/17 08:36 99.2 90 24 144/67 (92) 97 06/01/17 04:14 96 06/01/17 04:07 98.4 97 18 152/71 (98) 96 06/01/17 00:07 98.3 85 18 150/68 (95) 98 06/01/17 00:00 90 05/31/17 21:42 98.0 84 18 130/64 (86) 97 05/31/17 20:00 96 I/O 05/31/17 05/31/17 05/31/17 06/01/17 06/01/17 06/01/17 07:00 15:00 23:00 07:00 15:00 23:00 Intake Total 2100 ml 580 ml Output Total 200 ml 600 ml Balance 2100 ml 380 ml -600 ml Intake IV Total 2100 ml 580 ml Output Urine Total 200 ml 600 ml # Voids 2 3 # Bowel Movements 1 Laboratory Laboratory Tests Test 05/31/17 20:19 06/01/17 06:50 Blood Urea Nitrogen 5 4 Creatinine 0.72 0.59 Random Glucose 99 81 Total Protein 7.2 7.8 Albumin 3.3 3.5 Calcium Level 8.9 8.9 Magnesium Level 1.6 Alkaline Phosphatase 245 262 Aspartate Amino Transf (AST/SGOT) 281 272 Alanine Aminotransferase (ALT/SGPT) 161 165 Total Bilirubin 1.9 2.0 Direct Bilirubin 1.1 Sodium Level 141 138 Potassium Level 2.8 3.6 Chloride Level 107 106 Carbon Dioxide Level 23.3 23.7 Anion Gap 11 8 Estimat Glomerular Filtration Rate 85 107 Indirect Bilirubin 0.8 Hepatitis A IgM Antibody NEGATIVE Hepatitis B Surface Antigen NEGATIVE Hepatitis B Core IgM Antibody NEGATIVE Hepatitis C Antibody NEGATIVE White Blood Count 6.3 Red Blood Count 3.51 Hemoglobin 13.0 Hematocrit 38.8 Mean Corpuscular Volume 110.4 Mean Corpuscular Hemoglobin 37.1 Mean Corpuscular Hemoglobin Concent 33.6 Red Cell Distribution Width 14.9 Platelet Count 153 Mean Platelet Volume 8.3 Neutrophils (%) (Auto) 68.1 Lymphocytes (%) (Auto) 22.6 Monocytes (%) (Auto) 7.5 Eosinophils (%) (Auto) 1.4 Basophils (%) (Auto) 0.4 Neutrophils # (Auto) 4.3 Lymphocytes # (Auto) 1.4 Monocytes # (Auto) 0.5 Eosinophils # (Auto) 0.1 Basophils # (Auto) 0.0 CBC Comment DIFF FINAL Differential Comment Prothrombin Time 14.0 Prothromb Time International Ratio 1.3 Iron Level 61 Total Iron Binding Capacity 262 Percent Iron Saturation 23.3 Ferritin 764 Date/Time Source Procedure Growth Status 05/31/17 01:50 Urine Random Urine Urine Culture - Preliminary Gram Negative Brock Resulted Imaging Last Impressions Cholangiopancreatography MRI 06/01/17 0000 Signed Impressions: Service Date/Time: Thursday, June 01, 2017 09:02 - CONCLUSION: 1. Intra-and extrahepatic biliary ducts are patent without stone disease. CBD is upper limits of normal post cholecystectomy. 2. Very heterogeneous signal intensity throughout the liver characteristic of scattered hepatic fatty infiltration. 3. Benign-appearing 2.8 cm cyst posteriorly in the splenic parenchyma. Raji Marshall MD Abdomen/Pelvis CT 05/31/17 0149 Signed Impressions: Service Date/Time: May 03:06 - CONCLUSION: 1. Severe hepatic steatosis. 2. 2.5 cm splenic low-density lesion, likely benign. 3. Status post cholecystectomy. 4. No bowel obstruction. Alex Barcenas MD Physical Exam HEENT: Normocephalic; atraumatic; no jaundice. CHEST: CTA CARDIAC: RRR ABDOMEN: Soft, nondistended, mildly tender; no hepatosplenomegaly; bowel sounds are present in all four quadrants. EXTREMITIES: No clubbing, cyanosis, or edema. SKIN: Normal; no rash; no jaundice. MAINTENANCE DISPATCHER: No focal deficits; alert and oriented times three. Assessment and Plan Plan ASSESSMENT - N/V/D, Abdominal pain. CT Abdomen and pelvis with IV contrast (05/31/17)---- > Severe hepatic steatosis, 2.5 cm splenic low density lesion, likely benign, s/p cholecystectomy, no bowel obstruction. Pt c/o persistent n/v, inability to tolerate po, but asking for diet at same time. States she started having diarrhea. - Elevated LFTs. Does not have GB. S/P MRCP (06/01/17)---> intra and extrahepatic biliary ducts are patent without stone disease. CBD is upper limits of normal post cholecystectomy, very heterogeneous signal intensity throughout the liver characteristic of scattered hepatic fatty infiltration. T. Bili 2.0, AST 272, ALT 165, Alk Phosph 262. Hep negative, MANJINDER/AMA/ASMA pending, Alpha 1 Antitrypsin/ Ceruloplasmin pending, Iron saturation 23.3%. ? medication induced. States she was taking 4 percocet per day at home x 10 years. Monitor. PLAN - Clear liquids - Await liver workup - Monitor labs - Supportive care - Consider EGD/Colonoscopy Sunday if still in hospital, otherwise can do as outpatient - This pt seen by myself and Dr Pinto and this note is written on his behalf Sailaja Pineda Jun 01, 2017 15:56
[2017-06-01] MEDS: LORazepam 2 MG/ML VIAL IV PUSH PRN ×2 (17:50→21:35)
[2017-06-01] MEDS: PROMETHAZINE HCL 25 MG SUPP RECTAL PRN (18:17)
[2017-06-02] VITALS (7 sets, daily range): BP systolic 106–148; BP diastolic 58–72; PULSE 88–99; RESP 20; TEMP 97.5–98.2; O2SAT 93–99
[2017-06-02] MEDS: NS + KCL 20 MEQ INJ 1,000 ML IV SCH ×4 (01:03→23:33)
[2017-06-02] MEDS: MORPHINE SULFATE 4 MG/ML INJ IV PUSH PRN ×3 (01:12→20:59)
[2017-06-02] MEDS: ONDANSETRON HCL 4 MG/2 ML VIAL IVP PRN ×4 (04:40→23:33)
[2017-06-02] MEDS: LORazepam 2 MG/ML VIAL IV PUSH PRN ×4 (04:40→23:34)
[2017-06-02] MEDS: LEVOTHYROXINE SODIUM 75 MCG TAB PO SCH (06:23)
[2017-06-02] MEDS: cefTRIAXone INJ 1,000 MG in SODIUM CHLORIDE 0.9% INJ 100 ML IV SCH (06:23)
[2017-06-02] MEDS: SODIUM CHLORIDE 0.9% FLUSH 10 ML FLUSH IV FLUSH SCH ×2 (08:13→21:00)
[2017-06-02] MEDS: VENLAFAXINE HCL XR 75 MG CAP PO SCH (08:13)
[2017-06-02] MEDS: DOCUSATE SODIUM 50 MG/SENNA 8.6 MG TAB PO SCH ×2 (08:14→21:00)
[2017-06-02] MEDS ORDERED: INFLUENZA VIRUS VACCINE (QUADRIVALENT) 0.5 ML SYR IM ONE (10:00)
--- NOTE | 2017-06-02 10:32 | HHI.PR ---
Subjective Remarks Follow-up nausea, vomiting. Patient still reports abdominal pain. Nausea and vomiting have improved. Denies chest pain or dyspnea. Objective Vitals Vital Signs Date Time Temp Pulse Resp B/P (MAP) Pulse Ox O2 Delivery O2 Flow Rate FiO2 06/02/17 08:13 98.0 89 20 138/64 (88) 93 06/02/17 05:41 18 06/02/17 04:22 98.0 89 20 136/70 (92) 97 06/02/17 01:42 18 06/02/17 00:12 97.5 88 20 148/72 (97) 99 06/02/17 00:00 96 06/01/17 20:37 97.7 106 16 142/75 (97) 100 06/01/17 17:07 98.5 94 20 151/79 (103) 97 06/01/17 16:03 98.5 83 26 138/65 (89) 98 06/01/17 12:14 99.2 93 24 141/74 (96) 97 06/01/17 10:34 93 I/O 06/01/17 06/01/17 06/01/17 06/02/17 06/02/17 06/02/17 07:00 15:00 23:00 07:00 15:00 23:00 Intake Total 1000 ml Output Total 600 ml 400 ml Balance -600 ml -400 ml 1000 ml Intake IV Total 1000 ml Output Urine Total 600 ml 400 ml # Voids 3 3 2 # Bowel Movements 1 1 0 Result Diagram: 06/01/17 0650 06/01/17 0650 Imaging Last Impressions Cholangiopancreatography MRI 06/01/17 0000 Signed Impressions: Service Date/Time: Thursday, June 01, 2017 09:02 - CONCLUSION: 1. Intra-and extrahepatic biliary ducts are patent without stone disease. CBD is upper limits of normal post cholecystectomy. 2. Very heterogeneous signal intensity throughout the liver characteristic of scattered hepatic fatty infiltration. 3. Benign-appearing 2.8 cm cyst posteriorly in the splenic parenchyma. Raji Marshall MD Abdomen/Pelvis CT 05/31/17 0149 Signed Impressions: Service Date/Time: May 03:06 - CONCLUSION: 1. Severe hepatic steatosis. 2. 2.5 cm splenic low-density lesion, likely benign. 3. Status post cholecystectomy. 4. No bowel obstruction. Alex Barcenas MD Objective Remarks General: No acute distress. HEENT: Bilateral periorbital ecchymosis. Bilateral subconjunctival hemorrhage. Heart: Regular rate and rhythm. No murmur. Lungs: Clear to auscultation bilaterally. No wheezes, rales, or rhonchi. Breathing is nonlabored. Abdomen: Soft, diffuse tenderness to palpation, nondistended. Extremities: No lower extremity edema. Psych: Alert and oriented. Procedures None Urinary Catheter: No Vascular Central Line Catheter: No A/P Problem List: (1) Intractable abdominal pain ICD Code: R10.9 - Unspecified abdominal pain Status: Acute (2) UTI (urinary tract infection) ICD Code: N39.0 - Urinary tract infection, site not specified (3) Elevated LFTs ICD Code: R79.89 - Other specified abnormal findings of blood chemistry Status: Acute (4) Subconjunctival hemorrhage of both eyes ICD Code: H11.33 - Conjunctival hemorrhage, bilateral Assessment and Plan 1. Abdominal pain, nausea, vomiting: CT of the abdomen and pelvis shows severe steatosis. Appreciate gastroenterology recommendations. Continue antiemetics, IV fluids, PPI. Clear liquid diet. 2. Transaminitis: LFTs remain elevated. Labs are pending today. Patient believes that her liver problems are secondary to chronic pain medication use and she states that she has been taking pain medication from her pain management physician that has Tylenol in it and has been doing so for years. 3. UTI: Continue antibiotics. 4. Hypothyroidism: Continue Synthroid. Repeat TSH in 4-6 weeks. 5. Hypokalemia: Improved. Labs are pending today. 6. Anxiety/depression: Chronic. Continue Effexor, Klonopin. 7. DVT prophylaxis: SCDs, IMANI sanchez. 8. Bilateral subconjunctival hemorrhage: Possibly secondary to frequent heavy vomiting. Patient also reporting some blurred vision. No ophthalmology consult available at this time. Discharge Planning Awaiting GI clearance. May need EGD/colonoscopy. Charles Turner MD Jun 02, 2017 10:32
[2017-06-02] MEDS: SODIUM CHLORIDE 0.9% FLUSH 10 ML FLUSH IV FLUSH PRN (10:41)
[2017-06-02] MEDS: PANTOPRAZOLE SODIUM 40 MG VIAL IV PUSH SCH (10:41)
[2017-06-02 10:57] LABS: AUTOMATED NEUTROPHIL # 4.4 TH/MM3 (1.8-7.7); BASOPHIL % 0.3 % (0.0-2.0); EOSINOPHIL # 0.1 TH/MM3 (0-0.4); EOSINOPHIL % 1.8 % (0.0-4.0); HEMATOCRIT 34.4 % (35.0-46.0); LYMPH % 19.6 % (9.0-44.0); LYMPHOCYTE # 1.2 TH/MM3 (1.0-4.8); MEAN CELL VOLUME 108.9 FL (80.0-100.0); MEAN CORPUSCULAR HEMOGLOBIN 37.9 PG (27.0-34.0); MEAN CORPUSCULAR HGB CONC 34.8 % (32.0-36.0); MEAN PLATELET VOLUME 8.1 FL (7.0-11.0); MONO % 8.4 % (0.0-8.0); MONOCYTE # 0.5 TH/MM3 (0-0.9); NEUT % 69.9 % (16.0-70.0); PLATELET COUNT 152 TH/MM3 (150-450); RED BLOOD COUNT 3.16 MIL/MM3 (4.00-5.30); RED CELL DISTRIBUTION WIDTH 14.6 % (11.6-17.2); WHITE BLOOD COUNT 6.3 TH/MM3 (4.0-11.0)
[2017-06-02 11:34] LABS: AST (GOT) 179 U/L (15-37); BICARBONATE 24.9 MEQ/L (21.0-32.0); BLOOD UREA NITROGEN 4 MG/DL (7-18); CALCIUM 9.1 MG/DL (8.5-10.1); CHLORIDE 104 MEQ/L (98-107); CREATININE 0.66 MG/DL (0.50-1.00); GLOMERULAR FILTRATION RATE 94 ML/MIN (>89); GLUCOSE,RANDOM 92 MG/DL (74-106); MAGNESIUM 1.4 MG/DL (1.5-2.5); SODIUM (NA) 139 MEQ/L (136-145)
[2017-06-02 11:44] LABS: ALKALINE PHOSPHATASE 207 U/L (45-117); ALT (GPT) 119 U/L (10-53); PHOSPHORUS 2.1 MG/DL (2.5-4.9); TOTAL BILIRUBIN ADULT 1.6 MG/DL (0.2-1.0); TOTAL PROTEIN 6.7 GM/DL (6.4-8.2)
[2017-06-02 14:20] LABS: SMOOTH MUSCLE TOTAL AUTOABS Negative (Negative)
[2017-06-02] MEDS ORDERED: POTASSIUM CHLORIDE 10 MEQ CONTROLLED RELEASE TAB PO ONE (15:00)
[2017-06-02 15:12] LABS: ALPHA-1-ANTITRYPSIN 153 mg/dL (100 - 190)
--- NOTE | 2017-06-02 16:53 | HHI.GIFU ---
Subjective Remarks Pt reports ongoing nausea and vomiting. Eyes have become bloodshot and bright red. CT shows very large liver that is low density. Bile duct is a bit large but may be reservoir effect. She admits to alcohol consumption and tylenol consumption. Objective Vitals I&O Vital Signs Date Time Temp Pulse Resp B/P (MAP) Pulse Ox O2 Delivery O2 Flow Rate FiO2 06/02/17 16:42 97.9 94 20 131/72 (91) 95 06/02/17 12:20 98.0 98 20 106/58 (74) 93 06/02/17 08:13 98.0 89 20 138/64 (88) 93 06/02/17 05:41 18 06/02/17 04:22 98.0 89 20 136/70 (92) 97 06/02/17 01:42 18 06/02/17 00:12 97.5 88 20 148/72 (97) 99 06/02/17 00:00 96 06/01/17 20:37 97.7 106 16 142/75 (97) 100 06/01/17 17:07 98.5 94 20 151/79 (103) 97 I/O 06/01/17 06/01/17 06/01/17 06/02/17 06/02/17 06/02/17 07:00 15:00 23:00 07:00 15:00 23:00 Intake Total 1000 ml 966 ml 720 ml Output Total 600 ml 400 ml Balance -600 ml -400 ml 1000 ml 966 ml 720 ml Intake Oral 720 ml IV Total 1000 ml 966 ml Output Urine Total 600 ml 400 ml # Voids 3 3 2 # Bowel Movements 1 1 0 Laboratory Laboratory Tests Test 06/02/17 10:30 White Blood Count 6.3 Red Blood Count 3.16 Hemoglobin 12.0 Hematocrit 34.4 Mean Corpuscular Volume 108.9 Mean Corpuscular Hemoglobin 37.9 Mean Corpuscular Hemoglobin Concent 34.8 Red Cell Distribution Width 14.6 Platelet Count 152 Mean Platelet Volume 8.1 Neutrophils (%) (Auto) 69.9 Lymphocytes (%) (Auto) 19.6 Monocytes (%) (Auto) 8.4 Eosinophils (%) (Auto) 1.8 Basophils (%) (Auto) 0.3 Neutrophils # (Auto) 4.4 Lymphocytes # (Auto) 1.2 Monocytes # (Auto) 0.5 Eosinophils # (Auto) 0.1 Basophils # (Auto) 0.0 CBC Comment DIFF FINAL Differential Comment Blood Urea Nitrogen 4 Creatinine 0.66 Random Glucose 92 Total Protein 6.7 Albumin 3.0 Calcium Level 9.1 Phosphorus Level 2.1 Magnesium Level 1.4 Alkaline Phosphatase 207 Aspartate Amino Transf (AST/SGOT) 179 Alanine Aminotransferase (ALT/SGPT) 119 Total Bilirubin 1.6 Sodium Level 139 Potassium Level 3.2 Chloride Level 104 Carbon Dioxide Level 24.9 Anion Gap 10 Estimat Glomerular Filtration Rate 94 Free Thyroxine 1.30 Thyroid Stimulating Hormone 3rd Gen 5.340 Date/Time Source Procedure Growth Status 05/31/17 01:50 Urine Random Urine Urine Culture - Final Escherichia Coli Complete Physical Exam HEENT: She has brightly red sclerae and purple bruising around the orbits. CHEST: CTA CARDIAC: RRR ABDOMEN: Soft, nondistended, mildly tender; no hepatosplenomegaly; bowel sounds are present in all four quadrants. EXTREMITIES: No clubbing, cyanosis, or edema. SKIN: Normal; no rash; no jaundice. CONFERENCE SERVICES DIRECTOR: No focal deficits; alert and oriented times three. Assessment and Plan Plan ASSESSMENT - N/V/D, Abdominal pain. CT Abdomen and pelvis with IV contrast (05/31/17)---- > Severe hepatic steatosis, 2.5 cm splenic low density lesion, likely benign, s/p cholecystectomy, no bowel obstruction. Pt c/o persistent n/v, inability to tolerate po, but asking for diet at same time. States she started having diarrhea. - Elevated LFTs. Does not have GB. S/P MRCP (06/01/17)---> intra and extrahepatic biliary ducts are patent without stone disease. CBD is upper limits of normal post cholecystectomy, very heterogeneous signal intensity throughout the liver characteristic of scattered hepatic fatty infiltration. T. Bili 2.0, AST 272, ALT 165, Alk Phosph 262. Hep negative, MANJINDER/AMA/ASMA pending, Alpha 1 Antitrypsin/ Ceruloplasmin pending, Iron saturation 23.3%. ? medication induced. States she was taking 4 percocet per day at home x 10 years. Monitor. - Scleral hemorrhage from vomiting, orbital bruising. ? cause. PLAN - consider liver biopsy on Sunday - Clear liquids - Await liver workup - Monitor labs - Supportive care - Consider EGD/Colonoscopy Sunday if still in hospital, otherwise can do as outpatient - This pt seen by myself and Dr Pinto and this note is written on his behalf Jluis Pinto MD Jun 02, 2017 16:53
[2017-06-02] MEDS ORDERED: IOHEXOL 350 MG/ML 10 ML VIAL (for RAD DIAG) IVCONTRAST ONE (20:25)
--- NOTE | 2017-06-02 20:53 | RADRPT ---
EXAM DATE/TIME: 06/02/2017 20:22 [facility] COMPARISON: No previous studies available for comparison. INDICATIONS : Headache; rule out tumor. IV CONTRAST: 67 cc Omnipaque 350 (iohexol) IV RADIATION DOSE: 27.18 CTDIvol (mGy) MEDICAL HISTORY : Cardiovascular disease. Hypertension. SURGICAL HISTORY : Cholecystectomy. Hysterectomy. ENCOUNTER: Initial ACUITY: 1 day PAIN SCALE: 5/10 LOCATION: cranial TECHNIQUE: Multiple contiguous axial images were obtained of the head. Using automated exposure control and adj ustment of the mA and/or kV according to patient size, radiation dose was kept as low as reasonably a chievable to obtain optimal diagnostic quality images. DICOM format image data is available electro nically for review and comparison. FINDINGS: CEREBRUM: The ventricles are normal for age. Prominence of the extra-axial CSF space about the frontal region bilaterally, characteristic of cortical atrophy. No evidence of midline shift, cerebral edema or blo od products. No extra-axial fluid collections are seen. POSTERIOR FOSSA: The cerebellum and brainstem are intact. The 4th ventricle is midline. The cerebellar pontine angle is unremarkable. EXTRACRANIAL: The visualized portion of the orbits is intact. SKULL: The calvaria is intact. No evidence of skull fracture. POST CONTRAST: No abnormal areas of parenchymal or dural enhancement. No evidence of blood-brain barrier breakdown. No filling defects in the sagittal sinus. CONCLUSION: 1. No acute findings in the brain. 2. Mild bilateral frontal cortical atrophy. Chet Castro MD on June 02, 2017 at 20:49 Board Certified Radiologist. This report was verified electronically.
[2017-06-03] VITALS (8 sets, daily range): BP systolic 124–135; BP diastolic 57–76; PULSE 90–99; RESP 18–20; TEMP 97–98.3; O2SAT 93–98
[2017-06-03] MEDS: MORPHINE SULFATE 4 MG/ML INJ IV PUSH PRN ×5 (02:13→21:50)
[2017-06-03] MEDS: LEVOTHYROXINE SODIUM 75 MCG TAB PO SCH (06:32)
[2017-06-03] MEDS: cefTRIAXone INJ 1,000 MG in SODIUM CHLORIDE 0.9% INJ 100 ML IV SCH (06:32)
[2017-06-03] MEDS: ONDANSETRON HCL 4 MG/2 ML VIAL IVP PRN (06:33)
[2017-06-03] MEDS: LORazepam 2 MG/ML VIAL IV PUSH PRN (06:34)
[2017-06-03] MEDS: DOCUSATE SODIUM 50 MG/SENNA 8.6 MG TAB PO SCH ×2 (08:31→20:30)
[2017-06-03] MEDS: SODIUM CHLORIDE 0.9% FLUSH 10 ML FLUSH IV FLUSH SCH ×2 (08:31→20:29)
[2017-06-03] MEDS: VENLAFAXINE HCL XR 75 MG CAP PO SCH (08:31)
[2017-06-03] MEDS ORDERED: MAGNESIUM OXIDE 400 MG TAB PO ONE (08:45)
[2017-06-03] MEDS ORDERED: POTASSIUM CHLORIDE 20 MEQ CONTROLLED RELEASE TAB PO SCH (09:00)
[2017-06-03 09:24] LABS: HEMOGLOBIN A1C 4.9 % (4.3-6.0)
[2017-06-03 10:36] LABS: ALKALINE PHOSPHATASE 234 U/L (45-117); TOTAL BILIRUBIN ADULT 1.5 MG/DL (0.2-1.0); TOTAL PROTEIN 7.2 GM/DL (6.4-8.2)
[2017-06-03 10:40] LABS: ALBUMIN 3.1 GM/DL (3.4-5.0); ALT (GPT) 115 U/L (10-53); AST (GOT) 165 U/L (15-37); BLOOD UREA NITROGEN 3 MG/DL (7-18); CHLORIDE 103 MEQ/L (98-107); CREATININE 0.73 MG/DL (0.50-1.00); GLOMERULAR FILTRATION RATE 84 ML/MIN (>89); GLUCOSE,RANDOM 118 MG/DL (74-106); SODIUM (NA) 138 MEQ/L (136-145)
[2017-06-03 10:42] LABS: MAGNESIUM 1.6 MG/DL (1.5-2.5); PHOSPHORUS 3.2 MG/DL (2.5-4.9)
[2017-06-03] MEDS: POTASSIUM CHLORIDE 25 MEQ EFFERVESCENT TAB PO SCH (11:00)
--- NOTE | 2017-06-03 11:02 | HHI.PR ---
Subjective Remarks Follow up nausea/vomiting. She still is having abdominal pain. Nausea/vomiting better. She still has blurry vision. Objective Vitals Vital Signs Date Time Temp Pulse Resp B/P (MAP) Pulse Ox O2 Delivery O2 Flow Rate FiO2 06/03/17 08:34 97.9 90 20 125/62 (83) 98 06/03/17 07:59 18 06/03/17 04:30 98.3 93 18 133/70 (91) 98 06/03/17 02:20 18 06/03/17 01:47 95 06/03/17 00:00 98.1 91 18 135/66 (89) 98 06/02/17 20:00 98.2 99 20 128/71 (90) 99 06/02/17 16:42 97.9 94 20 131/72 (91) 95 06/02/17 12:20 98.0 98 20 106/58 (74) 93 I/O 06/02/17 06/02/17 06/02/17 06/03/17 06/03/17 06/03/17 07:00 15:00 23:00 07:00 15:00 23:00 Intake Total 1000 ml 966 ml 720 ml 950 ml Balance 1000 ml 966 ml 720 ml 950 ml Intake Oral 720 ml IV Total 1000 ml 966 ml 950 ml # Voids 2 2 # Bowel Movements 0 Result Diagram: 06/02/17 1030 06/03/17 0844 Imaging Last Impressions Head CT 06/02/17 0000 Signed Impressions: Service Date/Time: Friday, June 02, 2017 20:22 - CONCLUSION: 1. No acute findings in the brain. 2. Mild bilateral frontal cortical atrophy. Chet Castro MD Cholangiopancreatography MRI 06/01/17 0000 Signed Impressions: Service Date/Time: Thursday, June 01, 2017 09:02 - CONCLUSION: 1. Intra-and extrahepatic biliary ducts are patent without stone disease. CBD is upper limits of normal post cholecystectomy. 2. Very heterogeneous signal intensity throughout the liver characteristic of scattered hepatic fatty infiltration. 3. Benign-appearing 2.8 cm cyst posteriorly in the splenic parenchyma. Raji Marshall MD Abdomen/Pelvis CT 05/31/17 0149 Signed Impressions: Service Date/Time: May 03:06 - CONCLUSION: 1. Severe hepatic steatosis. 2. 2.5 cm splenic low-density lesion, likely benign. 3. Status post cholecystectomy. 4. No bowel obstruction. Alex Barcenas MD Objective Remarks General: No acute distress. HEENT: Bilateral periorbital ecchymosis. Bilateral subconjunctival hemorrhage. Heart: Regular rate and rhythm. No murmur. Lungs: Clear to auscultation bilaterally. No wheezes, rales, or rhonchi. Breathing is nonlabored. Abdomen: Soft, diffuse tenderness to palpation, nondistended. Extremities: No lower extremity edema. Psych: Alert and oriented. Procedures None Urinary Catheter: No Vascular Central Line Catheter: No A/P Problem List: (1) Intractable abdominal pain ICD Code: R10.9 - Unspecified abdominal pain Status: Acute (2) UTI (urinary tract infection) ICD Code: N39.0 - Urinary tract infection, site not specified (3) Elevated LFTs ICD Code: R79.89 - Other specified abnormal findings of blood chemistry Status: Acute (4) Subconjunctival hemorrhage of both eyes ICD Code: H11.33 - Conjunctival hemorrhage, bilateral Assessment and Plan 1. Abdominal pain, nausea, vomiting: CT of the abdomen and pelvis shows severe steatosis. Appreciate gastroenterology recommendations. Continue antiemetics, IV fluids, PPI. Clear liquid diet. 2. Transaminitis: LFTs remain elevated. Labs are pending today. Patient believes that her liver problems are secondary to chronic pain medication use and she states that she has been taking pain medication from her pain management physician that has Tylenol in it and has been doing so for years. Possible liver biopsy tomorrow. 3. UTI: Continue antibiotics. 4. Hypothyroidism: Continue Synthroid. Repeat TSH in 4-6 weeks. 5. Hypokalemia: Improved. Labs are pending today. 6. Anxiety/depression: Chronic. Continue Effexor, Klonopin. 7. DVT prophylaxis: SCDs, IMANI hose. 8. Bilateral subconjunctival hemorrhage: Possibly secondary to frequent heavy vomiting. Patient also reporting some blurred vision. No ophthalmology consult available at this time. 9. Coagulopathy: Consult hematology. Patient reports easy bruising/bleeding for the past year. Discharge Planning Pending further GI workup. Charles Turner MD Jun 03, 2017 11:02
[2017-06-03] MEDS: LORazepam 0.5 MG TAB PO PRN ×2 (12:05→20:30)
[2017-06-03] MEDS: ONDANSETRON ODT 4 MG TAB PO PRN ×3 (12:05→23:17)
[2017-06-03] MEDS: SODIUM CHLORIDE 0.9% FLUSH 10 ML FLUSH IV FLUSH PRN (13:13)
[2017-06-03] MEDS: PANTOPRAZOLE SOD 40 MG DELAYED RELEASE TAB PO SCH (13:15)
--- NOTE | 2017-06-03 13:24 | HHI.GIFU ---
Subjective Remarks Resting in bed. Reports continued epigastric pain. Reports she is having difficulty swallowing her medications. Has nausea and has been dry heaving. States she does not think she will be able to tolerate drinking bowel prep for colonoscopy. Objective Vitals I&O Vital Signs Date Time Temp Pulse Resp B/P (MAP) Pulse Ox O2 Delivery O2 Flow Rate FiO2 06/03/17 11:57 98.2 94 20 124/57 (79) 95 06/03/17 11:18 93 06/03/17 08:34 97.9 90 20 125/62 (83) 98 06/03/17 07:59 18 06/03/17 04:30 98.3 93 18 133/70 (91) 98 06/03/17 02:20 18 06/03/17 01:47 95 06/03/17 00:00 98.1 91 18 135/66 (89) 98 06/02/17 20:00 98.2 99 20 128/71 (90) 99 06/02/17 16:42 97.9 94 20 131/72 (91) 95 I/O 06/02/17 06/02/17 06/02/17 06/03/17 06/03/17 06/03/17 07:00 15:00 23:00 07:00 15:00 23:00 Intake Total 1000 ml 966 ml 720 ml 950 ml Balance 1000 ml 966 ml 720 ml 950 ml Intake Oral 720 ml IV Total 1000 ml 966 ml 950 ml # Voids 2 2 # Bowel Movements 0 Laboratory Laboratory Tests Test 06/03/17 08:44 Blood Urea Nitrogen 3 Creatinine 0.73 Random Glucose 118 Total Protein 7.2 Albumin 3.1 Calcium Level 9.0 Alkaline Phosphatase 234 Aspartate Amino Transf (AST/SGOT) 165 Alanine Aminotransferase (ALT/SGPT) 115 Total Bilirubin 1.5 Sodium Level 138 Potassium Level 3.3 Chloride Level 103 Carbon Dioxide Level 26.0 Anion Gap 9 Estimat Glomerular Filtration Rate 84 Phosphorus Level 3.2 Magnesium Level 1.6 Date/Time Source Procedure Growth Status 05/31/17 01:50 Urine Random Urine Urine Culture - Final Escherichia Coli Complete Imaging Last Impressions Head CT 06/02/17 0000 Signed Impressions: Service Date/Time: Friday, June 02, 2017 20:22 - CONCLUSION: 1. No acute findings in the brain. 2. Mild bilateral frontal cortical atrophy. Chet Castro MD Cholangiopancreatography MRI 06/01/17 0000 Signed Impressions: Service Date/Time: Thursday, June 01, 2017 09:02 - CONCLUSION: 1. Intra-and extrahepatic biliary ducts are patent without stone disease. CBD is upper limits of normal post cholecystectomy. 2. Very heterogeneous signal intensity throughout the liver characteristic of scattered hepatic fatty infiltration. 3. Benign-appearing 2.8 cm cyst posteriorly in the splenic parenchyma. Raji Marshall MD Abdomen/Pelvis CT 05/31/17 0149 Signed Impressions: Service Date/Time: May 03:06 - CONCLUSION: 1. Severe hepatic steatosis. 2. 2.5 cm splenic low-density lesion, likely benign. 3. Status post cholecystectomy. 4. No bowel obstruction. Alex Barcenas MD Physical Exam HEENT: Bilateral red sclerae and purple bruising around the orbits. CHEST: CTA CARDIAC: RRR ABDOMEN: Soft, nondistended, mildly tenderness at epigastric area; no hepatosplenomegaly; bowel sounds are present in all four quadrants. EXTREMITIES: No clubbing, cyanosis, or edema. SKIN: Normal; no rash; no jaundice. COURTROOM DEPUTY OR CALENDAR CLERK: No focal deficits; alert and oriented times three. Assessment and Plan Plan ASSESSMENT - N/V/D, Abdominal pain. CT Abdomen and pelvis with IV contrast (05/31/17)----> Severe hepatic steatosis, 2.5 cm splenic low density lesion, likely benign, s/p cholecystectomy, no bowel obstruction. Pt c/o persistent n/v, inability to tolerate po, but asking for diet at same time. States she started having diarrhea. - Elevated LFTs. Does not have GB. S/P MRCP (06/01/17)---> intra and extrahepatic biliary ducts are patent without stone disease. CBD is upper limits of normal post cholecystectomy, very heterogeneous signal intensity throughout the liver characteristic of scattered hepatic fatty infiltration. Liver function labs improving. T. Bili 1.5, AST 165, ALT 115, Alk Phosph 234. Hep panel negative, MANJINDER negative, ASMA negative, AMA pending. Alpha 1 Antitrypsin 153. Ceruloplasmin pending, Iron saturation 23.3%. ? medication induced. States she was taking 4 Percocet per day at home x 10 years. Monitor labs. - Scleral hemorrhage from vomiting, orbital bruising. Head CT (06/02/17)--1. No acute findings in the brain. 2. Mild bilateral frontal cortical atrophy. PLAN - Liver biopsy on Sunday - Consider EGD/Colonoscopy next week when able to tolerate bowel prep, otherwise can do as outpatient - Clear liquid diet - Await liver workup - Monitor labs - Supportive care - Further recommendations to follow based on results of above. Patient seen and examined by Dr. Pinto and myself and this note is written on his behalf. Malena Wong Jun 03, 2017 13:24
[2017-06-03 15:54] LABS: INTERNATIONAL NORMALIZED RATIO 1.2 RATIO; PROTHROMBIN TIME - PATIENT 13.5 SEC (9.8-11.6)
--- NOTE | 2017-06-03 16:51 | MB ---
cc: TRISTON KIRKLAND M.D. DATE OF CONSULTATION: 06/03/2017. REASON FOR CONSULTATION: Hematology was consulted to render opinion regarding a patient with easy bruising and bleeding. ATTENDING PHYSICIAN: Dr. Charles Turner. HISTORY OF PRESENT ILLNESS: The patient is a 52-year-old female admitted to the hospital with nausea, vomiting, and abdominal pain for about a week. She has decreased oral intake. She was found to have a urinary tract infection. She was also noted to have elevated liver enzymes and is currently undergoing workup. Yesterday she developed bilateral subconjunctival hemorrhage after she had nausea and retching. She stated that she has had easy bruising for at least a year and it seems a little worse lately. She also has bleeding with minor scratch or cut. She has no family history of bleeding disorder. She was taking high-dose prescription fish oil but she has stopped taking it recently. She denies taking any NSAIDs or any blood thinners. She denies chest pressure, palpitation, shortness of breath, or cough. She denies any melena or hematochezia. She denies any dysuria or hematuria. PAST MEDICAL HISTORY: 1. Anxiety. 2. Gastroesophageal reflux disease (GERD). 3. Hyperlipidemia. 4. Hypothyroidism. 5. Herpes. PAST SURGICAL HISTORY: 1. section. 2. Cholecystectomy. 3. Hysterectomy. 4. Tummy tuck. 5. Rhinoplasty. 6. Breast augmentation. FAMILY HISTORY: One brother . One sister living. Two children healthy. SOCIAL HISTORY: Negative tobacco. She drinks about two drinks a day. ALLERGIES: 1. NSAIDS. 2. METRONIDAZOLE. CURRENT MEDICATIONS: 1. Bactrim. 2. Protonix. 3. Potassium. 4. Bicarbonate. 5. Effexor. REVIEW OF SYSTEMS: CONSTITUTIONAL: Negative. EYES: As above. ENT: Negative. CARDIOVASCULAR: Denies any chest pressure or palpitations. RESPIRATORY: Negative. GI: As above. : Denies any dysuria or hematuria. MUSCULOSKELETAL: Negative. HEMATOLOGIC: As above. ENDOCRINE: Negative. DERMATOLOGIC: As above. PSYCHIATRIC: Negative. NEUROLOGIC: Negative. PHYSICAL EXAMINATION: VITAL SIGNS: Temperature 98.2, blood pressure 124/57, 02 saturation 95%. GENERAL: She is alert and oriented times three and in no acute distress. HEAD, EYES, EARS, NOSE, THROAT: Atraumatic, normocephalic. Pupils equal, round, reactive to light. Extraocular muscles intact. No scleral icterus. Of note, she has bilateral subconjunctival hemorrhage. No blurry vision. OROPHARYNX: Dry mucosa. No lesions. No thrush. No mucositis. NECK: No thyromegaly. No palpable mass. LYMPHATIC: No palpable cervical, clavicular, axillary or inguinal lymph nodes. CARDIOVASCULAR: Regular S1-S2. No murmur. LUNGS: Clear to auscultation. No wheezing or rhonchi. ABDOMEN: Abdomen soft, a little tender in the mid epigastric area. No rebound. No rigidity. EXTREMITIES: No cyanosis or clubbing. No edema. SKIN: No rash or petechiae. I do not see any significant bruises or purpura. NEUROLOGIC EXAM: Nonfocal. LABORATORY DATA: Reviewed. ASSESSMENT: 1. Bleeding. She stated that she has easy bruising all her life but it seems to be worse over the last one year. She bleeds easily with minor cuts. She has easy bruises. Yesterday she had nausea and was retching. She developed bilateral subconjunctival hemorrhage. She also bleeds easily when they tried to start an IV. She has no family history of bleeding disorder. She has had multiple surgeries in the past without bleeding complications. Her PTT was normal. Her INR was 1.3 yesterday. She denies taking any NSAIDs or blood thinners. She was on prescription fish oil for several years, which she has self-discontinued recently. At this point, I am going to check her coagulation studies. Will also do a von Willebrand disease panel. She has no active bleeding noted at this time. Will continue to monitor her. 2. Elevated liver enzymes. Workup showed fatty liver. She is awaiting possible liver biopsy. 3. Urinary tract infection. Her urine culture grew E coli. Her symptoms have improved with treatment. RECOMMENDATIONS: 1. Check coagulation studies. 2. Check von Willebrand disease panel but the results may not be available for several days. 3. Monitor CBC. 4. Discussed with Dr. Turner. Thank you Dr. Turner for asking me to see this patient. MD YULISA Mccord/JCC /2:55 PM /4:37 PM MICHELLE
[2017-06-03] MEDS: NS + KCL 20 MEQ INJ 1,000 ML IV SCH (20:29)
[2017-06-03] MEDS: SULFAMETHOXAZOLE-TRIMETHOPRIM DS 800-160 MG TAB PO SCH (20:29)
[2017-06-04] VITALS (9 sets, daily range): BP systolic 120–143; BP diastolic 61–80; PULSE 87–102; RESP 18; TEMP 97.4–98.6; O2SAT 93–97
[2017-06-04] MEDS: LORazepam 0.5 MG TAB PO PRN ×3 (06:53→23:46)
[2017-06-04] MEDS: LEVOTHYROXINE SODIUM 75 MCG TAB PO SCH (06:53)
[2017-06-04] MEDS: ONDANSETRON ODT 4 MG TAB PO PRN ×2 (06:53→23:46)
[2017-06-04] MEDS: NS + KCL 20 MEQ INJ 1,000 ML IV SCH ×2 (06:55→23:42)
--- NOTE | 2017-06-04 07:39 | PD.ONC.PN ---
Subjective Subjective Remarks No active bleeding. Feeling better. Objective Data Date Time Temp Pulse Resp B/P (MAP) Pulse Ox O2 Delivery O2 Flow Rate FiO2 06/04/17 05:46 97.4 94 18 129/80 (96) 95 06/04/17 01:37 102 06/04/17 00:17 18 06/04/17 00:00 97.5 92 18 131/62 (85) 93 06/03/17 21:55 18 06/03/17 20:40 98.2 99 20 135/76 (95) 93 06/03/17 16:20 97.0 99 20 131/61 (84) 96 06/03/17 11:57 98.2 94 20 124/57 (79) 95 06/03/17 11:18 93 06/03/17 08:34 97.9 90 20 125/62 (83) 98 06/04/17 06/04/17 06/04/17 07:00 15:00 23:00 Intake Total 1225 ml Balance 1225 ml Result Diagram: 06/02/17 1030 06/03/17 0844 Laboratory Results Laboratory Tests Test 06/03/17 08:44 06/03/17 15:05 Blood Urea Nitrogen 3 MG/DL Creatinine 0.73 MG/DL Random Glucose 118 MG/DL Total Protein 7.2 GM/DL Albumin 3.1 GM/DL Calcium Level 9.0 MG/DL Alkaline Phosphatase 234 U/L Aspartate Amino Transf (AST/SGOT) 165 U/L Alanine Aminotransferase (ALT/SGPT) 115 U/L Total Bilirubin 1.5 MG/DL Sodium Level 138 MEQ/L Potassium Level 3.3 MEQ/L Chloride Level 103 MEQ/L Carbon Dioxide Level 26.0 MEQ/L Anion Gap 9 MEQ/L Estimat Glomerular Filtration Rate 84 ML/MIN Phosphorus Level 3.2 MG/DL Magnesium Level 1.6 MG/DL Prothrombin Time 13.5 SEC Prothromb Time International Ratio 1.2 RATIO Administered Medications Medications (Trade) Dose Ordered Sig/Glenis Route PRN Reason Start Time Stop Time Status Last Admin Dose Admin Sodium Chloride (NS Flush) 2 ml UNSCH PRN IV FLUSH FLUSH AFTER USING IV ACCESS 05/31/17 04:15 06/03/17 13:13 Sodium Chloride (NS Flush) 2 ml BID IV FLUSH 05/31/17 09:00 06/03/17 20:29 Morphine Sulfate (Morphine Inj) 2 mg Q3H PRN IV PUSH BREAKTHROUGH PAIN 05/31/17 04:15 06/03/17 21:50 Senna/Docusate Sodium (Beatriz-Colace) 1 tab BID PO 05/31/17 09:00 05/31/17 20:29 Levothyroxine Sodium (Synthroid) 75 mcg DAILY@0600 PO 05/31/17 08:00 06/04/17 06:53 Oxycodone HCl (Roxicodone) 10 mg Q6H PRN PO PAIN 6-10 05/31/17 08:15 06/04/17 06:53 Promethazine HCl (Phenergan Supp) 25 mg Q6H PRN RECTAL NAUSEA OR VOMITING 05/31/17 09:45 06/01/17 18:17 Potassium Chloride/Sodium Chloride 1,000 ml @ 100 mls/hr Q10H IV 05/31/17 09:45 06/04/17 06:55 Venlafaxine HCl (Effexor Xr) 150 mg DAILY PO 06/01/17 09:00 06/03/17 08:31 Ondansetron HCl (Zofran Odt) 4 mg Q6H PRN PO NAUSEA OR VOMITING 06/03/17 11:00 06/04/17 06:53 Lorazepam (Ativan) 0.5 mg Q8H PRN PO ANXIETY 06/03/17 11:00 06/04/17 06:53 Trimethoprim/ Sulfamethoxazole (Bactrim Ds 800-160 Mg) 1 tab Q12HR PO 06/03/17 21:00 06/03/17 20:29 Objective Remarks GENERAL: Well-nourished, well-developed patient. SKIN: Warm and dry. HEAD: Normocephalic. EYES: B subconjunctival hemorrhage stable NECK: Supple, trachea midline. No JVD or lymphadenopathy. LYMPHATIC: No adenopathy. CARDIOVASCULAR: Regular rate and rhythm without murmurs. RESPIRATORY: Breath sounds equal bilaterally. No accessory muscle use. GASTROINTESTINAL: Abdomen soft, non-tender, nondistended. EXTREMITIES: No cyanosis, or edema. MUSCULOSKELETAL: Adequate muscle tone. NEUROLOGICAL: No obvious focal deficit. Awake, alert, and oriented x3. PSYCHIATRIC: Appropriate mood and affect; insight and judgment normal. Assessment/Plan Assessment 1. Bleeding diathesis. She stated that she has easy bruising all her life but it seems to be worse over the last one year. She bleeds easily with minor cuts. She has easy bruising. She had nausea and was retching and developed bilateral subconjunctival hemorrhage. She also bleeds easily when they tried to start an IV. She has no family history of bleeding disorder. She has had multiple surgeries in the past without bleeding complications. Her PTT was normal. Her INR was 1.3. She denies taking any NSAIDs or blood thinners. She was on prescription fish oil for several years, which she has self-discontinued recently. 2. Elevated liver enzymes. Workup showed fatty liver. She is awaiting possible liver biopsy. 3. Urinary tract infection. Her urine culture grew E coli. Her symptoms have improved with treatment. Plan Plan: 1. Coagulation studies and von Willebrand disease panel pending. 2. Monitor CBC. Evangelist Galdamez MD Jun 04, 2017 07:39
[2017-06-04] MEDS: SULFAMETHOXAZOLE-TRIMETHOPRIM DS 800-160 MG TAB PO SCH ×2 (09:00→21:45)
[2017-06-04] MEDS: SODIUM CHLORIDE 0.9% FLUSH 10 ML FLUSH IV FLUSH SCH ×2 (09:00→21:00)
[2017-06-04] MEDS: VENLAFAXINE HCL XR 75 MG CAP PO SCH ×2 (09:00→21:49)
[2017-06-04] MEDS: PANTOPRAZOLE SOD 40 MG DELAYED RELEASE TAB PO SCH (09:00)
[2017-06-04] MEDS: POTASSIUM CHLORIDE 25 MEQ EFFERVESCENT TAB PO SCH (09:00)
[2017-06-04] MEDS: DOCUSATE SODIUM 50 MG/SENNA 8.6 MG TAB PO SCH ×2 (09:00→21:00)
[2017-06-04 09:12] LABS: AUTOMATED NEUTROPHIL # 4.3 TH/MM3 (1.8-7.7); BASOPHIL % 0.4 % (0.0-2.0); EOSINOPHIL # 0.1 TH/MM3 (0-0.4); EOSINOPHIL % 1.7 % (0.0-4.0); HEMATOCRIT 36.2 % (35.0-46.0); HEMOGLOBIN 12.5 GM/DL (11.6-15.3); LYMPHOCYTE # 1.1 TH/MM3 (1.0-4.8); MEAN CELL VOLUME 108.9 FL (80.0-100.0); MEAN CORPUSCULAR HEMOGLOBIN 37.7 PG (27.0-34.0); MEAN CORPUSCULAR HGB CONC 34.6 % (32.0-36.0); MEAN PLATELET VOLUME 7.9 FL (7.0-11.0); MONO % 10.6 % (0.0-8.0); MONOCYTE # 0.7 TH/MM3 (0-0.9); NEUT % 70.3 % (16.0-70.0); PLATELET COUNT 178 TH/MM3 (150-450); RED BLOOD COUNT 3.33 MIL/MM3 (4.00-5.30); RED CELL DISTRIBUTION WIDTH 14.6 % (11.6-17.2); WHITE BLOOD COUNT 6.2 TH/MM3 (4.0-11.0)
[2017-06-04 09:17] LABS: INTERNATIONAL NORMALIZED RATIO 1.3 RATIO; PROTHROMBIN TIME - PATIENT 14.4 SEC (9.8-11.6)
[2017-06-04] MEDS: MORPHINE SULFATE 4 MG/ML INJ IV PUSH PRN ×4 (09:48→21:49)
[2017-06-04 09:51] LABS: ALBUMIN 3.2 GM/DL (3.4-5.0); ALT (GPT) 101 U/L (10-53); AST (GOT) 134 U/L (15-37); BICARBONATE 24.7 MEQ/L (21.0-32.0); BLOOD UREA NITROGEN 3 MG/DL (7-18); CALCIUM 9.2 MG/DL (8.5-10.1); CHLORIDE 103 MEQ/L (98-107); CREATININE 0.63 MG/DL (0.50-1.00); GLOMERULAR FILTRATION RATE 100 ML/MIN (>89); GLUCOSE,RANDOM 83 MG/DL (74-106); SODIUM (NA) 137 MEQ/L (136-145)
--- NOTE | 2017-06-04 09:51 | HHI.PR ---
Subjective Remarks Follow up nausea, abdominal pain. Patient still reporting nausea, but no vomiting. Denies chest pain, dyspnea. Abdominal pain is unchanged. Still having blurred vision. Objective Vitals Vital Signs Date Time Temp Pulse Resp B/P (MAP) Pulse Ox O2 Delivery O2 Flow Rate FiO2 06/04/17 08:00 97.6 87 18 120/61 (80) 96 06/04/17 05:46 97.4 94 18 129/80 (96) 95 06/04/17 01:37 102 06/04/17 00:17 18 06/04/17 00:00 97.5 92 18 131/62 (85) 93 06/03/17 21:55 18 06/03/17 20:40 98.2 99 20 135/76 (95) 93 06/03/17 16:20 97.0 99 20 131/61 (84) 96 06/03/17 11:57 98.2 94 20 124/57 (79) 95 06/03/17 11:18 93 I/O 06/03/17 06/03/17 06/03/17 06/04/17 06/04/17 06/04/17 07:00 15:00 23:00 07:00 15:00 23:00 Intake Total 950 ml 720 ml 1225 ml Balance 950 ml 720 ml 1225 ml Intake Oral 720 ml 220 ml IV Total 950 ml 1005 ml # Voids 2 3 5 # Bowel Movements 2 Result Diagram: 06/04/17 0840 06/03/17 0844 Imaging Last Impressions Head CT 06/02/17 0000 Signed Impressions: Service Date/Time: Friday, June 02, 2017 20:22 - CONCLUSION: 1. No acute findings in the brain. 2. Mild bilateral frontal cortical atrophy. Chet Castro MD Cholangiopancreatography MRI 06/01/17 0000 Signed Impressions: Service Date/Time: Thursday, June 01, 2017 09:02 - CONCLUSION: 1. Intra-and extrahepatic biliary ducts are patent without stone disease. CBD is upper limits of normal post cholecystectomy. 2. Very heterogeneous signal intensity throughout the liver characteristic of scattered hepatic fatty infiltration. 3. Benign-appearing 2.8 cm cyst posteriorly in the splenic parenchyma. Raji Marshall MD Abdomen/Pelvis CT 05/31/17 0149 Signed Impressions: Service Date/Time: May 03:06 - CONCLUSION: 1. Severe hepatic steatosis. 2. 2.5 cm splenic low-density lesion, likely benign. 3. Status post cholecystectomy. 4. No bowel obstruction. Alex Barcenas MD Objective Remarks General: No acute distress. HEENT: Bilateral periorbital ecchymosis. Bilateral subconjunctival hemorrhage. Heart: Regular rate and rhythm. No murmur. Lungs: Clear to auscultation bilaterally. No wheezes, rales, or rhonchi. Breathing is nonlabored. Abdomen: Soft, diffuse tenderness to palpation, nondistended. Extremities: No lower extremity edema. Psych: Alert and oriented. Procedures None Urinary Catheter: No Vascular Central Line Catheter: No A/P Problem List: (1) Intractable abdominal pain ICD Code: R10.9 - Unspecified abdominal pain Status: Acute (2) UTI (urinary tract infection) ICD Code: N39.0 - Urinary tract infection, site not specified (3) Elevated LFTs ICD Code: R79.89 - Other specified abnormal findings of blood chemistry Status: Acute (4) Subconjunctival hemorrhage of both eyes ICD Code: H11.33 - Conjunctival hemorrhage, bilateral Assessment and Plan 1. Abdominal pain, nausea, vomiting: CT of the abdomen and pelvis shows severe steatosis. Appreciate gastroenterology recommendations. Continue antiemetics, IV fluids, PPI. Currently NPO for EGD, which is planned for today. 2. Transaminitis: LFTs remain elevated. Labs are pending today. Patient believes that her liver problems are secondary to chronic pain medication use and she states that she has been taking pain medication from her pain management physician that has Tylenol in it and has been doing so for years. Liver biopsy today per GI. 3. UTI: Continue antibiotics. 4. Hypothyroidism: Continue Synthroid. Repeat TSH in 4-6 weeks. 5. Hypokalemia: Improved. Labs are pending today. 6. Anxiety/depression: Chronic. Continue Effexor, Klonopin. 7. DVT prophylaxis: SCDs, IMANI hose. 8. Bilateral subconjunctival hemorrhage: Likely secondary to frequent heavy vomiting. Patient still reporting blurred vision. Consult ophthalmology. 9. Coagulopathy: Patient reports easy bruising/bleeding for the past year. Appreciate hematology recommendations. Discharge Planning Pending further GI workup. Charles Turner MD Jun 04, 2017 09:51
[2017-06-04 09:53] LABS: ALKALINE PHOSPHATASE 216 U/L (45-117); TOTAL BILIRUBIN ADULT 1.7 MG/DL (0.2-1.0)
[2017-06-04] MEDS ORDERED: METOPROLOL TARTRATE 25 MG TAB PO PRN (12:00)
[2017-06-04] MEDS ORDERED: INSULIN HUMAN REGULAR 1,000 UNITS/10 ML VIAL SQ PRN (12:00)
[2017-06-04] MEDS ORDERED: LACTATED RINGER'S 1000 ML IV PRN (12:00)
[2017-06-04] MEDS ORDERED: SODIUM CHLORID 0.9% 500 ML IV PRN (12:00)
[2017-06-04] MEDS ORDERED: CHLORHEXIDINE GLUCONATE 2 % 1 PACK (2 CLOTHS) TOPICAL PRN (12:00)
[2017-06-04] MEDS ORDERED: POVIDONE IODINE 5% (ANTISEPSIS KIT) 4 APPLICATIONS EACH NARE PRN (12:00)
--- NOTE | 2017-06-04 12:06 | PD.CONS ---
History of Present Illness Service Ophthalmology Consult Requested By Dr. Turner Reason for Consult blurred vision Primary Care Physician Jonny Love DO Diagnoses: History of Present Illness 52 yo F with a h/o of anxiety, GERD, hyperlipidemia and hypothyroidism who presented with complaints of abdominal pain, N/V x [address] abdomen showed severe steatosis. Scheduled for EGD and liver biopsy today. Over the last few days she has developed bilateral subconjunctival hemorrhages after intense bouts of vomiting. No pain, mild blurriness OU. No significant ocular history. Past Family Social History Allergies: Coded Allergies: clarithromycin (Verified Allergy, Severe, VOMITING, DIARRHEA, 06/04/17) NSAIDS (Non-Steroidal Anti-Inflamma (Verified Adverse Reaction, Intermediate, Nausea/Vomiting, 05/31/17) metronidazole (Verified Adverse Reaction, Intermediate, Nausea/Vomiting, 05/31/17) Physical Exam Vital Signs Vital Signs Date Time Temp Pulse Resp B/P (MAP) Pulse Ox O2 Delivery O2 Flow Rate FiO2 06/04/17 08:00 97.6 87 18 120/61 (80) 96 06/04/17 05:46 97.4 94 18 129/80 (96) 95 06/04/17 01:37 102 06/04/17 00:17 18 06/04/17 00:00 97.5 92 18 131/62 (85) 93 06/03/17 21:55 18 06/03/17 20:40 98.2 99 20 135/76 (95) 93 06/03/17 16:20 97.0 99 20 131/61 (84) 96 Physical Exam Va cc at near OD 20/30, OS 20/40 EOM full OU, no diplopia CVF full OU Pupils 2-1 no APD OU IOP normal to palpation OU Anterior exam OD - normal eyelid, C/S W&Q, K clear, AC deep, pupil round, lens clear OS - normal eyelid, C/S W&Q, K clear, AC deep, pupil round, lens clear Dilated exam OD - ON s/p/f, ves normal, vit clear, retina flat OS - ON s/p/f, ves normal, vit clear, retina flat Laboratory Laboratory Tests Test 06/03/17 15:05 06/04/17 08:40 06/04/17 10:30 Prothrombin Time 13.5 14.4 Prothromb Time International Ratio 1.2 1.3 White Blood Count 6.2 Red Blood Count 3.33 Hemoglobin 12.5 Hematocrit 36.2 Mean Corpuscular Volume 108.9 Mean Corpuscular Hemoglobin 37.7 Mean Corpuscular Hemoglobin Concent 34.6 Red Cell Distribution Width 14.6 Platelet Count 178 Mean Platelet Volume 7.9 Neutrophils (%) (Auto) 70.3 Lymphocytes (%) (Auto) 17.0 Monocytes (%) (Auto) 10.6 Eosinophils (%) (Auto) 1.7 Basophils (%) (Auto) 0.4 Neutrophils # (Auto) 4.3 Lymphocytes # (Auto) 1.1 Monocytes # (Auto) 0.7 Eosinophils # (Auto) 0.1 Basophils # (Auto) 0.0 CBC Comment DIFF FINAL Differential Comment Blood Urea Nitrogen 3 Creatinine 0.63 Random Glucose 83 Total Protein 7.0 Albumin 3.2 Calcium Level 9.2 Alkaline Phosphatase 216 Aspartate Amino Transf (AST/SGOT) 134 Alanine Aminotransferase (ALT/SGPT) 101 Total Bilirubin 1.7 Sodium Level 137 Potassium Level 3.7 Chloride Level 103 Carbon Dioxide Level 24.7 Anion Gap 9 Estimat Glomerular Filtration Rate 100 Activated Partial Thromboplast Time 30.7 Fibrinogen 337 Date/Time Source Procedure Growth Status 05/31/17 01:50 Urine Random Urine Urine Culture - Final Escherichia Coli Complete Result Diagram: 06/04/1783906/04/17839 Assessment and Plan Problem List: (1) Subconjunctival hemorrhage of both eyes ICD Codes: H11.33 - Conjunctival hemorrhage, bilateral Plan: Secondary to vomiting. Normal dilated exam. Recommended she use artificial tears as needed for blurry vision. Magi Faye MD Jun 04, 2017 12:06
[2017-06-04] MEDS ORDERED: ONDANSETRON HCL 4 MG/2 ML VIAL ONE (12:33)
[2017-06-04] MEDS ORDERED: FAMOTIDINE 20 MG/2 ML VIAL ONE (12:33)
[2017-06-04] MEDS ORDERED: ARTIFICIAL TEARS OPTH SOLN 15 ML BTL EACH EYE PRN (13:00)
--- NOTE | 2017-06-04 13:23 | GIPROC ---
[facility] [address] [facility]. [facility], [address] EGD PROCEDURE REPORT EXAM DATE: 06/04/2017 PATIENT NAME: Evon Dhillon MR #: [id number] BIRTHDATE: 1965 ATTENDING: Karyn Aponte MD ORDER #: [id number] FORCE VARIATION EQUIPMENT TENDER: All Del Angel and Omaira Gray STATUS: inpatient INDICATIONS: The patient is a 52 yr old female here for an EGD due to abdominal pain, abn lfts PROCEDURE PERFORMED: EGD w/ biopsy MEDICATIONS: None and Per Anesthesia. TOPICAL ANESTHETIC: none CONSENT: The patient understands the risks and benefits of the procedure and understands that these risks include, but are not limited to: sedation, allergic reaction, infection, perforation and/or bleeding. Alternative means of evaluation and treatment include, among others: physical exam, x-rays, and/or surgical intervention. The patient elects to proceed with this endoscopic procedure. medical equipment was checked for proper function. Hand hygiene and appropriate measures for infection prevention was taken. After the risks, benefits and alternatives of the procedure were thoroughly explained, Informed consent was verified, confirmed and timeout was successfully executed by the treatment team. The patient was anesthetized with topical anesthesia and the Pentax EG-[id number] endoscope was introduced through the mouth and advanced to the second portion of the duodenum. Retroflexed views revealed a hiatal hernia The gastroscope was then slowly withdrawn and removed. Duodenitis second portion-biopsy esophagiis distal esophagus-biopsy gastrtis antrum-biopsy. ADVERSE EVENTS: There were no complications. IMPRESSIONS: 1. Duodenitis second portion-biopsy esophagiis distal esophagus-biopsy gastrtis antrum-biopsy 2. Retroflexed views revealed a hiatal hernia RECOMMENDATIONS: 1. Await biopsy results. Biopsy results will not be ready for 7-10 days. If you don't hear from us in two weeks, call our office for biopsy results. 2. Anti-reflux regimen 3. Continue PPI PATIENT CONDITION: stable DISPOSITION: Inpatient REPEAT EXAM: Return 1 year EGD Karyn Aponte MD eSigned: Karyn Aponte MD 06/04/2017 1:22 PM cc: PATIENT NAME: Evon Dhillon Cresencio MR#: [id number]
--- NOTE | 2017-06-04 13:23 | GIPROC ---
[facility] [address] [facility]. [facility], [address] EGD PROCEDURE REPORT EXAM DATE: 06/04/2017 PATIENT NAME: Evon Dhillon MR #: [id number] BIRTHDATE: 1965 ATTENDING: Karyn Aponte MD ORDER #: [id number] VIROLOGIST: All Del Angel and Omaira Gray STATUS: inpatient INDICATIONS: The patient is a 52 yr old female here for an EGD due to abdominal pain, abn lfts PROCEDURE PERFORMED: EGD w/ biopsy MEDICATIONS: None and Per Anesthesia. TOPICAL ANESTHETIC: none CONSENT: The patient understands the risks and benefits of the procedure and understands that these risks include, but are not limited to: sedation, allergic reaction, infection, perforation and/or bleeding. Alternative means of evaluation and treatment include, among others: physical exam, x-rays, and/or surgical intervention. The patient elects to proceed with this endoscopic procedure. medical equipment was checked for proper function. Hand hygiene and appropriate measures for infection prevention was taken. After the risks, benefits and alternatives of the procedure were thoroughly explained, Informed consent was verified, confirmed and timeout was successfully executed by the treatment team. The patient was anesthetized with topical anesthesia and the Pentax EG-[id number] endoscope was introduced through the mouth and advanced to the second portion of the duodenum. Retroflexed views revealed a hiatal hernia The gastroscope was then slowly withdrawn and removed. Duodenitis second portion-biopsy esophagiis distal esophagus-biopsy gastrtis antrum-biopsy. ADVERSE EVENTS: There were no complications. IMPRESSIONS: 1. Duodenitis second portion-biopsy esophagiis distal esophagus-biopsy gastrtis antrum-biopsy 2. Retroflexed views revealed a hiatal hernia RECOMMENDATIONS: 1. Await biopsy results. Biopsy results will not be ready for 7-10 days. If you don't hear from us in two weeks, call our office for biopsy results. 2. Anti-reflux regimen 3. Continue PPI PATIENT CONDITION: stable DISPOSITION: Inpatient REPEAT EXAM: Return 1 year EGD Karyn Aponte MD eSigned: Karyn Aponte MD 06/04/2017 1:22 PM cc: PATIENT NAME: Evon Dhillon Cresencio MR#: [id number]
--- NOTE | 2017-06-04 13:23 | GIPROC ---
[facility] [address] [facility]. [facility], [address] EGD PROCEDURE REPORT EXAM DATE: 06/04/2017 PATIENT NAME: Evon Dhillon MR #: [id number] BIRTHDATE: 1965 ATTENDING: Karyn Aponte MD ORDER #: [id number] FEED WEIGHER: All Del Angel and Omaira Gray STATUS: inpatient INDICATIONS: The patient is a 52 yr old female here for an EGD due to abdominal pain, abn lfts PROCEDURE PERFORMED: EGD w/ biopsy MEDICATIONS: None and Per Anesthesia. TOPICAL ANESTHETIC: none CONSENT: The patient understands the risks and benefits of the procedure and understands that these risks include, but are not limited to: sedation, allergic reaction, infection, perforation and/or bleeding. Alternative means of evaluation and treatment include, among others: physical exam, x-rays, and/or surgical intervention. The patient elects to proceed with this endoscopic procedure. medical equipment was checked for proper function. Hand hygiene and appropriate measures for infection prevention was taken. After the risks, benefits and alternatives of the procedure were thoroughly explained, Informed consent was verified, confirmed and timeout was successfully executed by the treatment team. The patient was anesthetized with topical anesthesia and the Pentax EG-[id number] endoscope was introduced through the mouth and advanced to the second portion of the duodenum. Retroflexed views revealed a hiatal hernia The gastroscope was then slowly withdrawn and removed. Duodenitis second portion-biopsy esophagiis distal esophagus-biopsy gastrtis antrum-biopsy. ADVERSE EVENTS: There were no complications. IMPRESSIONS: 1. Duodenitis second portion-biopsy esophagiis distal esophagus-biopsy gastrtis antrum-biopsy 2. Retroflexed views revealed a hiatal hernia RECOMMENDATIONS: 1. Await biopsy results. Biopsy results will not be ready for 7-10 days. If you don't hear from us in two weeks, call our office for biopsy results. 2. Anti-reflux regimen 3. Continue PPI PATIENT CONDITION: stable DISPOSITION: Inpatient REPEAT EXAM: Return 1 year EGD Karyn Aponte MD eSigned: Karyn Aponte MD 06/04/2017 1:22 PM cc: PATIENT NAME: Evon Dhillon Cresencio MR#: [id number]
[2017-06-05] VITALS (10 sets, daily range): BP systolic 104–148; BP diastolic 52–79; PULSE 85–101; RESP 16–20; TEMP 97–98.3; O2SAT 91–98
[2017-06-05] MEDS: MORPHINE SULFATE 4 MG/ML INJ IV PUSH PRN ×6 (01:53→21:43)
[2017-06-05 03:50] LABS: CERULOPLASMIN 23 mg/dL (18-53); MITOCHONDRIAL ABS LESS THAN 20.0 U (<=20.0)
[2017-06-05] MEDS: LEVOTHYROXINE SODIUM 75 MCG TAB PO SCH (05:32)
[2017-06-05] MEDS: ONDANSETRON ODT 4 MG TAB PO PRN ×3 (05:37→23:39)
[2017-06-05 07:06] LABS: AUTOMATED NEUTROPHIL # 6.9 TH/MM3 (1.8-7.7); BASOPHIL # 0.1 TH/MM3 (0-0.2); BASOPHIL % 0.9 % (0.0-2.0); EOSINOPHIL # 0.1 TH/MM3 (0-0.4); EOSINOPHIL % 1.4 % (0.0-4.0); HEMATOCRIT 37.3 % (35.0-46.0); HEMOGLOBIN 12.8 GM/DL (11.6-15.3); LYMPH % 11.3 % (9.0-44.0); MEAN CELL VOLUME 109.9 FL (80.0-100.0); MEAN CORPUSCULAR HEMOGLOBIN 37.8 PG (27.0-34.0); MEAN CORPUSCULAR HGB CONC 34.4 % (32.0-36.0); MEAN PLATELET VOLUME 8.6 FL (7.0-11.0); MONO % 10.3 % (0.0-8.0); MONOCYTE # 0.9 TH/MM3 (0-0.9); NEUT % 76.1 % (16.0-70.0); PLATELET COUNT 193 TH/MM3 (150-450); RED BLOOD COUNT 3.39 MIL/MM3 (4.00-5.30); RED CELL DISTRIBUTION WIDTH 14.5 % (11.6-17.2); WHITE BLOOD COUNT 9.1 TH/MM3 (4.0-11.0)
[2017-06-05 07:11] LABS: ALBUMIN 3.3 GM/DL (3.4-5.0); ALT (GPT) 93 U/L (10-53); AST (GOT) 118 U/L (15-37); BICARBONATE 24.9 MEQ/L (21.0-32.0); CHLORIDE 104 MEQ/L (98-107); CREATININE 0.69 MG/DL (0.50-1.00); GLOMERULAR FILTRATION RATE 90 ML/MIN (>89); GLUCOSE,RANDOM 83 MG/DL (74-106); SODIUM (NA) 137 MEQ/L (136-145)
[2017-06-05 07:15] LABS: BLOOD UREA NITROGEN 3 MG/DL (7-18)
[2017-06-05] MEDS ORDERED: LIDOCAINE 1%/EPINEPHrine 1:100,000 SOLN 20 ML VIAL ONE (07:25)
[2017-06-05] MEDS ORDERED: SODIUM BICARBONATE 8.4% INJ 50 ML ONE (07:26)
[2017-06-05] MEDS ORDERED: MIDAZOLAM HCL 2 MG/2 ML VIAL ONE (07:37)
[2017-06-05 07:38] LABS: ALKALINE PHOSPHATASE 220 U/L (45-117); TOTAL BILIRUBIN ADULT 1.6 MG/DL (0.2-1.0); TOTAL PROTEIN 6.8 GM/DL (6.4-8.2)
[2017-06-05] MEDS ORDERED: PHYTONADIONE 10 MG/ML VIAL SQ ONE (08:00)
[2017-06-05] MEDS: SODIUM CHLORIDE 0.9% FLUSH 10 ML FLUSH IV FLUSH SCH ×2 (09:00→21:00)
[2017-06-05] MEDS: DOCUSATE SODIUM 50 MG/SENNA 8.6 MG TAB PO SCH ×2 (09:00→19:22)
[2017-06-05] MEDS: POTASSIUM CHLORIDE 25 MEQ EFFERVESCENT TAB PO SCH (09:00)
[2017-06-05] MEDS: NS + KCL 20 MEQ INJ 1,000 ML IV SCH ×3 (09:45→21:44)
[2017-06-05] MEDS: LORazepam 0.5 MG TAB PO PRN ×2 (10:22→23:39)
[2017-06-05] MEDS: SULFAMETHOXAZOLE-TRIMETHOPRIM DS 800-160 MG TAB PO SCH ×2 (10:24→21:43)
[2017-06-05] MEDS: PANTOPRAZOLE SOD 40 MG DELAYED RELEASE TAB PO SCH (10:24)
[2017-06-05] MEDS: VENLAFAXINE HCL XR 75 MG CAP PO SCH (10:25)
--- NOTE | 2017-06-05 11:15 | RADRPT ---
EXAM DATE/TIME: 06/05/2017 08:16 [place] COMPARISON: No previous studies available for comparison. INDICATIONS : Evaluate liver function. SEDATION TIME: 10 minutes BIOPSY SITE: liver MEDICATION(S): 1.) 2 mg midazolam (Versed) IV 2.) 100 mcg fentanyl (Sublimaze) IV DEVICE(S): 1.) 18 gauge Temno core biopsy needle 6cm MEDICAL HISTORY : Hypertension. SURGICAL HISTORY : Cholecystectomy Hysterectomy. ENCOUNTER: Initial ACUITY: 1 day PAIN SCORE: 0/10 LOCATION: Right lateral A total of one core specimen(s) were obtained and sent to the laboratory for pathologic evaluation. PROCEDURE: 1. CT guided liver biopsy. 2. Conscious sedation with continuous EKG and oximetry monitoring. Prior to the procedure informed consent was obtained. Any appropriate prior imaging studies were rev iewed. Using automated exposure control and adjustment of the mA and/or kV according to patient size, radiat ion dose was kept as low as reasonably achievable to obtain optimal diagnostic quality images. DICOM format image data is available electronically for review and comparison. The site was prepped in a sterile fashion. Full sterile technique was used, including cap, mask, jaspal rile gloves and gown and a large sterile sheet. Hand hygiene and 2% chlorhexidine and/or betadine/al cohol prep was utilized per protocol for cutaneous antisepsis. The skin and subcutaneous tissues wer e infiltrated with local anesthetic solution. With CT guidance the previously identified target was localized. Biopsy was performed using the presc ribed needle as above. Adequate hemostasis was obtained with compression at the puncture site. Follow-up CT scan reveals no hemorrhage. The patient tolerated the procedure well and there were no complications. The patient was returned to the Radiology Outpatient Unit in stable condition. CONCLUSION: Uncomplicated CT guided biopsy. Finesse Sierra MD on June 05, 2017 at 11:10 Board Certified Radiologist. This report was verified electronically.
--- NOTE | 2017-06-05 11:20 | PD.ONC.PN ---
Subjective Subjective Remarks Afebrile overnight. Patient resting in bed on right side. No complaints offered. Feeling ok at present. Objective Data Date Time Temp Pulse Resp B/P (MAP) Pulse Ox O2 Delivery O2 Flow Rate FiO2 06/05/17 09:30 96 18 104/58 (73) 92 06/05/17 09:18 98.3 92 16 124/68 (86) 96 06/05/17 09:00 98 18 104/58 (73) 95 06/05/17 08:45 98.3 101 18 106/52 (70) 91 06/05/17 04:00 97.0 100 20 131/60 (83) 91 06/05/17 01:12 97.6 101 20 148/79 (102) 96 06/04/17 21:01 98.6 95 18 122/63 (82) 97 06/04/17 20:45 96 06/04/17 20:00 88 06/04/17 16:00 98.2 87 18 143/67 (92) 96 06/04/17 13:53 97.9 76 18 122/67 (85) 98 06/04/17 13:36 80 18 133/70 (91) 96 06/05/17 06/05/17 06/05/17 07:00 15:00 23:00 Intake Total 748 ml Balance 748 ml Result Diagram: 06/05/1761306/05/1714 Laboratory Results Laboratory Tests Test 06/05/17 06:14 White Blood Count 9.1 TH/MM3 Red Blood Count 3.39 MIL/MM3 Hemoglobin 12.8 GM/DL Hematocrit 37.3 % Mean Corpuscular Volume 109.9 FL Mean Corpuscular Hemoglobin 37.8 PG Mean Corpuscular Hemoglobin Concent 34.4 % Red Cell Distribution Width 14.5 % Platelet Count 193 TH/MM3 Mean Platelet Volume 8.6 FL Neutrophils (%) (Auto) 76.1 % Lymphocytes (%) (Auto) 11.3 % Monocytes (%) (Auto) 10.3 % Eosinophils (%) (Auto) 1.4 % Basophils (%) (Auto) 0.9 % Neutrophils # (Auto) 6.9 TH/MM3 Lymphocytes # (Auto) 1.0 TH/MM3 Monocytes # (Auto) 0.9 TH/MM3 Eosinophils # (Auto) 0.1 TH/MM3 Basophils # (Auto) 0.1 TH/MM3 CBC Comment DIFF FINAL Differential Comment Blood Urea Nitrogen 3 MG/DL Creatinine 0.69 MG/DL Random Glucose 83 MG/DL Total Protein 6.8 GM/DL Albumin 3.3 GM/DL Calcium Level 9.0 MG/DL Alkaline Phosphatase 220 U/L Aspartate Amino Transf (AST/SGOT) 118 U/L Alanine Aminotransferase (ALT/SGPT) 93 U/L Total Bilirubin 1.6 MG/DL Sodium Level 137 MEQ/L Potassium Level 4.6 MEQ/L Chloride Level 104 MEQ/L Carbon Dioxide Level 24.9 MEQ/L Anion Gap 8 MEQ/L Estimat Glomerular Filtration Rate 90 ML/MIN Administered Medications Medications (Trade) Dose Ordered Sig/Glenis Route PRN Reason Start Time Stop Time Status Last Admin Dose Admin Sodium Chloride (NS Flush) 2 ml UNSCH PRN IV FLUSH FLUSH AFTER USING IV ACCESS 05/31/17 04:15 06/03/17 13:13 Sodium Chloride (NS Flush) 2 ml BID IV FLUSH 05/31/17 09:00 06/03/17 20:29 Morphine Sulfate (Morphine Inj) 2 mg Q3H PRN IV PUSH BREAKTHROUGH PAIN 05/31/17 04:15 06/05/17 10:21 Senna/Docusate Sodium (Beatriz-Colace) 1 tab BID PO 05/31/17 09:00 05/31/17 20:29 Levothyroxine Sodium (Synthroid) 75 mcg DAILY@0600 PO 05/31/17 08:00 06/05/17 05:32 Oxycodone HCl (Roxicodone) 10 mg Q6H PRN PO PAIN 6-10 05/31/17 08:15 06/04/17 23:39 Promethazine HCl (Phenergan Supp) 25 mg Q6H PRN RECTAL NAUSEA OR VOMITING 05/31/17 09:45 06/01/17 18:17 Potassium Chloride/Sodium Chloride 1,000 ml @ 100 mls/hr Q10H IV 05/31/17 09:45 06/05/17 09:45 Venlafaxine HCl (Effexor Xr) 150 mg DAILY PO 06/01/17 09:00 06/05/17 10:25 Pantoprazole Sodium (Protonix) 40 mg DAILY PO 06/03/17 11:00 06/05/17 10:24 Ondansetron HCl (Zofran Odt) 4 mg Q6H PRN PO NAUSEA OR VOMITING 06/03/17 11:00 06/05/17 05:37 Lorazepam (Ativan) 0.5 mg Q8H PRN PO ANXIETY 06/03/17 11:00 06/05/17 10:22 Trimethoprim/ Sulfamethoxazole (Bactrim Ds 800-160 Mg) 1 tab Q12HR PO 06/03/17 21:00 06/05/17 10:24 Lactated Ringer's 1,000 ml @ 30 mls/hr Q24H PRN IV SEE LABEL COMMENTS 06/04/17 12:00 06/07/17 11:59 06/04/17 11:47 Artificial Tears (Tears Naturale Opth Soln) 1 drop Q4H PRN EACH EYE blurry vision 06/04/17 13:00 06/04/17 21:45 Objective Remarks GENERAL: Middle aged female supine in bed, on her right side. SKIN: Warm and dry. HEAD: Normocephalic. EYES: No injection or drainage. NECK: Supple, trachea midline. CARDIOVASCULAR: Regular rate and rhythm RESPIRATORY: Breath sounds equal bilaterally. No accessory muscle use. GASTROINTESTINAL: Abdomen soft, non-tender, nondistended. EXTREMITIES: No cyanosis NEUROLOGICAL: awake and alert, normal speech. moving all extremities. Assessment/Plan Problem List: (1) Bleeding diathesis ICD Codes: D69.9 - Hemorrhagic condition, unspecified Plan: --has easy bruising all her life but it seems to be worse over the last one year. --bleeds easily with minor cuts. --has easy bruising. --had nausea and was retching and developed bilateral subconjunctival hemorrhage. --has no family history of bleeding disorder. --has had multiple surgeries in the past without bleeding complications. --PTT was normal. Her INR was 1.3. --denies taking any NSAIDs or blood thinners. She was on prescription fish oil for several years, which she has self-discontinued recently. (2) Transaminitis ICD Codes: R74.0 - Nonspecific elevation of levels of transaminase and lactic acid dehydrogenase [LDH] Status: Acute Plan: --Elevated liver enzymes. --Workup showed fatty liver. --is awaiting possible liver biopsy. (3) UTI (urinary tract infection) ICD Codes: N39.0 - Urinary tract infection, site not specified Plan: --on Bactrim (4) Subconjunctival hemorrhage of both eyes ICD Codes: H11.33 - Conjunctival hemorrhage, bilateral Plan 1. await coagulation workup 2. monitor CBC 3. give Vitamin K 10mg SQ x 1 today. Attending Statement The exam, history, and the medical decision-making described in the above note were completed with the assistance of the mid-level provider. I reviewed and agree with the findings presented. I attest that I had a [id number] encounter with the patient on the same day, and personally performed and documented my assessment and findings in the medical record. Mild abdominal soreness. No bleeding noted. Coagulopathy w/u ongoing. PT, aPTT slightly elevated likely due to liver d/o and vit K deficiency. Will give a dose of Vit K. Elda Barone Jun 05, 2017 11:20 Evangelist Galdamez MD Jun 05, 2017 16:36
--- NOTE | 2017-06-05 11:59 | HHI.GIFU ---
Subjective Remarks Resting in bed. States that her abdominal pain is better after she received some pain medicine. No vomiting. (Sailaja Pineda) Objective Vitals I&O Vital Signs Date Time Temp Pulse Resp B/P (MAP) Pulse Ox O2 Delivery O2 Flow Rate FiO2 06/05/17 09:30 96 18 104/58 (73) 92 06/05/17 09:18 98.3 92 16 124/68 (86) 96 06/05/17 09:00 98 18 104/58 (73) 95 06/05/17 08:45 98.3 101 18 106/52 (70) 91 06/05/17 04:00 97.0 100 20 131/60 (83) 91 06/05/17 01:12 97.6 101 20 148/79 (102) 96 06/04/17 21:01 98.6 95 18 122/63 (82) 97 06/04/17 20:45 96 06/04/17 20:00 88 06/04/17 16:00 98.2 87 18 143/67 (92) 96 06/04/17 13:53 97.9 76 18 122/67 (85) 98 06/04/17 13:36 80 18 133/70 (91) 96 I/O 06/04/17 06/04/17 06/04/17 06/05/17 06/05/17 06/05/17 07:00 15:00 23:00 07:00 15:00 23:00 Intake Total 1225 ml 350 ml 321 ml 748 ml Balance 1225 ml 350 ml 321 ml 748 ml Intake Oral 220 ml IV Total 1005 ml 321 ml 748 ml Other 350 ml # Voids 5 1 6 # Bowel Movements 2 2 2 Laboratory Laboratory Tests Test 06/05/17 06:14 White Blood Count 9.1 Red Blood Count 3.39 Hemoglobin 12.8 Hematocrit 37.3 Mean Corpuscular Volume 109.9 Mean Corpuscular Hemoglobin 37.8 Mean Corpuscular Hemoglobin Concent 34.4 Red Cell Distribution Width 14.5 Platelet Count 193 Mean Platelet Volume 8.6 Neutrophils (%) (Auto) 76.1 Lymphocytes (%) (Auto) 11.3 Monocytes (%) (Auto) 10.3 Eosinophils (%) (Auto) 1.4 Basophils (%) (Auto) 0.9 Neutrophils # (Auto) 6.9 Lymphocytes # (Auto) 1.0 Monocytes # (Auto) 0.9 Eosinophils # (Auto) 0.1 Basophils # (Auto) 0.1 CBC Comment DIFF FINAL Differential Comment Blood Urea Nitrogen 3 Creatinine 0.69 Random Glucose 83 Total Protein 6.8 Albumin 3.3 Calcium Level 9.0 Alkaline Phosphatase 220 Aspartate Amino Transf (AST/SGOT) 118 Alanine Aminotransferase (ALT/SGPT) 93 Total Bilirubin 1.6 Sodium Level 137 Potassium Level 4.6 Chloride Level 104 Carbon Dioxide Level 24.9 Anion Gap 8 Estimat Glomerular Filtration Rate 90 Date/Time Source Procedure Growth Status 05/31/17 01:50 Urine Random Urine Urine Culture - Final Escherichia Coli Complete Imaging Last Impressions Liver Biopsy CT 06/05/17 0654 Signed Impressions: Service Date/Time: Monday, June 05, 2017 08:16 - CONCLUSION: Uncomplicated CT guided biopsy. Finesse Sierra MD Head CT 06/02/17 0000 Signed Impressions: Service Date/Time: Friday, June 02, 2017 20:22 - CONCLUSION: 1. No acute findings in the brain. 2. Mild bilateral frontal cortical atrophy. Chet Castro MD Cholangiopancreatography MRI 06/01/17 0000 Signed Impressions: Service Date/Time: Thursday, June 01, 2017 09:02 - CONCLUSION: 1. Intra-and extrahepatic biliary ducts are patent without stone disease. CBD is upper limits of normal post cholecystectomy. 2. Very heterogeneous signal intensity throughout the liver characteristic of scattered hepatic fatty infiltration. 3. Benign-appearing 2.8 cm cyst posteriorly in the splenic parenchyma. Raji Marshall MD Abdomen/Pelvis CT 05/31/17 0149 Signed Impressions: Service Date/Time: May 03:06 - CONCLUSION: 1. Severe hepatic steatosis. 2. 2.5 cm splenic low-density lesion, likely benign. 3. Status post cholecystectomy. 4. No bowel obstruction. Alex Barcenas MD Physical Exam HEENT: Bilateral red sclera and purple bruising around the orbits. CHEST: CTA CARDIAC: RRR ABDOMEN: Soft, nondistended, mildly tender at epigastric area; no hepatosplenomegaly; bowel sounds are present in all four quadrants. EXTREMITIES: No clubbing, cyanosis, or edema. SKIN: Normal; no rash; no jaundice. DIRECTOR OF ENVIRONMENTAL SERVICES: No focal deficits; alert and oriented times three. (Sailaja Pineda) Assessment and Plan Plan ASSESSMENT - N/V/D, Abdominal pain. CT Abdomen and pelvis with IV contrast (05/31/17)----> Severe hepatic steatosis, 2.5 cm splenic low density lesion, likely benign, s/p cholecystectomy, no bowel obstruction. S/P EGD (06/05/17)--> 1. Duodenitis second portion-biopsy, esophagitis distal esophagus-biopsy, gastritis antrum-biopsy, 2. Retroflexed views revealed a hiatal hernia. Pathology pending. Clinically improved. Has not had n/v today. Still with abdominal pain, improved after pain meds. - Elevated LFTs. Does not have GB. S/P MRCP (06/01/17)---> intra and extrahepatic biliary ducts are patent without stone disease. CBD is upper limits of normal post cholecystectomy, very heterogeneous signal intensity throughout the liver characteristic of scattered hepatic fatty infiltration. Liver function labs improving. Hep panel negative, MANJINDER negative, ASMA negative, AMA< 20.0, Alpha 1 Antitrypsin 153. Ceruloplasmin 23, Iron saturation 23.3%. ? medication induced. States she was taking 4 Percocet per day at home x 10 years. S/P Liver biopsy (06/05/17)---> pathology pending. - Scleral hemorrhage from vomiting, orbital bruising. Head CT (06/02/17)--1. No acute findings in the brain. 2. Mild bilateral frontal cortical atrophy. S/P Ophthalmology evaluation PLAN - SHELLIE - Await pathology from EGD - Await pathology from liver biopsy - Cont. PPI - Monitor labs - Supportive care - Further recommendations to follow based on results of above. - Patient seen and examined by Dr. Aponte and myself and this note is written on her behalf. (Sailaja Pineda) Sailaja Pineda Jun 05, 2017 11:58 Karyn Aponte MD Jun 05, 2017 18:41
[2017-06-05 12:53] LABS: INTERNATIONAL NORMALIZED RATIO 1.2 RATIO; PROTHROMBIN TIME - PATIENT 13.9 SEC (9.8-11.6)
--- NOTE | 2017-06-05 15:50 | HHI.PR ---
Subjective Remarks Follow-up abdominal pain, nausea/vomiting. Patient has not had any further episodes of vomiting. Still having some right upper quadrant abdominal soreness. Had liver biopsy today. No bleeding noted. Objective Vitals Vital Signs Date Time Temp Pulse Resp B/P (MAP) Pulse Ox O2 Delivery O2 Flow Rate FiO2 06/05/17 12:23 98.0 85 18 116/58 (77) 98 06/05/17 09:30 96 18 104/58 (73) 92 06/05/17 09:18 98.3 92 16 124/68 (86) 96 06/05/17 09:00 98 18 104/58 (73) 95 06/05/17 08:45 98.3 101 18 106/52 (70) 91 06/05/17 04:00 97.0 100 20 131/60 (83) 91 06/05/17 01:12 97.6 101 20 148/79 (102) 96 06/04/17 21:01 98.6 95 18 122/63 (82) 97 06/04/17 20:45 96 06/04/17 20:00 88 06/04/17 16:00 98.2 87 18 143/67 (92) 96 I/O 06/04/17 06/04/17 06/04/17 06/05/17 06/05/17 06/05/17 07:00 15:00 23:00 07:00 15:00 23:00 Intake Total 1225 ml 350 ml 321 ml 748 ml Balance 1225 ml 350 ml 321 ml 748 ml Intake Oral 220 ml IV Total 1005 ml 321 ml 748 ml Other 350 ml # Voids 5 1 6 # Bowel Movements 2 2 2 Result Diagram: 06/05/1714 06/05/1714 Imaging Last Impressions Liver Biopsy CT 06/05/17 0654 Signed Impressions: Service Date/Time: Monday, June 05, 2017 08:16 - CONCLUSION: Uncomplicated CT guided biopsy. Finesse Sierra MD Head CT 06/02/17 0000 Signed Impressions: Service Date/Time: Friday, June 02, 2017 20:22 - CONCLUSION: 1. No acute findings in the brain. 2. Mild bilateral frontal cortical atrophy. Chet Castro MD Cholangiopancreatography MRI 06/01/17 0000 Signed Impressions: Service Date/Time: Thursday, June 01, 2017 09:02 - CONCLUSION: 1. Intra-and extrahepatic biliary ducts are patent without stone disease. CBD is upper limits of normal post cholecystectomy. 2. Very heterogeneous signal intensity throughout the liver characteristic of scattered hepatic fatty infiltration. 3. Benign-appearing 2.8 cm cyst posteriorly in the splenic parenchyma. Raji Marshall MD Abdomen/Pelvis CT 05/31/17 0149 Signed Impressions: Service Date/Time: May 03:06 - CONCLUSION: 1. Severe hepatic steatosis. 2. 2.5 cm splenic low-density lesion, likely benign. 3. Status post cholecystectomy. 4. No bowel obstruction. Alex Barcenas MD Objective Remarks General: No acute distress. HEENT: Bilateral periorbital ecchymosis. Bilateral subconjunctival hemorrhage. Heart: Regular rate and rhythm. No murmur. Lungs: Clear to auscultation bilaterally. No wheezes, rales, or rhonchi. Breathing is nonlabored. Abdomen: Soft, diffuse tenderness to palpation, nondistended. Extremities: No lower extremity edema. Psych: Alert and oriented. Procedures 06/04/17 EGD 06/05/17 CT-guided biopsy of the liver Urinary Catheter: No Vascular Central Line Catheter: No A/P Problem List: (1) Intractable abdominal pain ICD Code: R10.9 - Unspecified abdominal pain Status: Acute (2) UTI (urinary tract infection) ICD Code: N39.0 - Urinary tract infection, site not specified (3) Elevated LFTs ICD Code: R79.89 - Other specified abnormal findings of blood chemistry Status: Acute (4) Subconjunctival hemorrhage of both eyes ICD Code: H11.33 - Conjunctival hemorrhage, bilateral Assessment and Plan 1. Abdominal pain, nausea, vomiting: CT of the abdomen and pelvis shows severe steatosis. Appreciate gastroenterology recommendations. Continue antiemetics, IV fluids, PPI. Status post EGD. 2. Transaminitis: LFTs remain elevated. Labs are pending today. Patient believes that her liver problems are secondary to chronic pain medication use and she states that she has been taking pain medication from her pain management physician that has Tylenol in it and has been doing so for years. Liver biopsy status post liver biopsy, pathology pending. 3. UTI: Continue antibiotics. 4. Hypothyroidism: Continue Synthroid. Repeat TSH in 4-6 weeks. 5. Hypokalemia: Improved. Labs are pending today. 6. Anxiety/depression: Chronic. Continue Effexor, Klonopin. 7. DVT prophylaxis: IMANI [place]. 8. Bilateral subconjunctival hemorrhage: Likely secondary to frequent heavy vomiting. Patient still reporting blurred vision. Appreciate ophthalmology consult. 9. Coagulopathy: Patient reports easy bruising/bleeding for the past year. Appreciate hematology recommendations. Discharge Planning Pending further GI workup. Charles Turner MD Jun 05, 2017 15:50
[2017-06-06] VITALS (7 sets, daily range): BP systolic 129–140; BP diastolic 60–67; PULSE 75–85; RESP 16–18; TEMP 97.8–98.6; O2SAT 96–98
[2017-06-06] MEDS: MORPHINE SULFATE 4 MG/ML INJ IV PUSH PRN ×6 (04:38→21:40)
[2017-06-06] MEDS: LEVOTHYROXINE SODIUM 75 MCG TAB PO SCH (04:38)
--- NOTE | 2017-06-06 07:36 | PD.ONC.PN ---
Subjective Subjective Remarks Tolerated liver biopsy, no bleeding. No new c/o. Objective Data Date Time Temp Pulse Resp B/P (MAP) Pulse Ox O2 Delivery O2 Flow Rate FiO2 06/06/17 04:00 98.0 75 18 129/62 (84) 98 06/06/17 00:00 97.9 85 18 130/63 (85) 97 06/05/17 20:00 85 06/05/17 20:00 97.9 85 18 115/74 (88) 95 06/05/17 17:41 98.2 85 18 127/58 (81) 97 06/05/17 12:23 98.0 85 18 116/58 (77) 98 06/05/17 09:30 96 18 104/58 (73) 92 06/05/17 09:18 98.3 92 16 124/68 (86) 96 06/05/17 09:00 98 18 104/58 (73) 95 06/05/17 08:45 98.3 101 18 106/52 (70) 91 06/06/17 06/06/17 06/06/17 07:00 15:00 23:00 Intake Total 800 ml Balance 800 ml Result Diagram: 06/05/1761306/05/1714 Laboratory Results Laboratory Tests Test 06/05/17 11:40 Prothrombin Time 13.9 SEC Prothromb Time International Ratio 1.2 RATIO Activated Partial Thromboplast Time 32.0 SEC Fibrinogen 392 mg/dL Administered Medications Medications (Trade) Dose Ordered Sig/Glenis Route PRN Reason Start Time Stop Time Status Last Admin Dose Admin Sodium Chloride (NS Flush) 2 ml UNSCH PRN IV FLUSH FLUSH AFTER USING IV ACCESS 05/31/17 04:15 06/03/17 13:13 Sodium Chloride (NS Flush) 2 ml BID IV FLUSH 05/31/17 09:00 06/03/17 20:29 Morphine Sulfate (Morphine Inj) 2 mg Q3H PRN IV PUSH BREAKTHROUGH PAIN 05/31/17 04:15 06/06/17 04:38 Senna/Docusate Sodium (Beatriz-Colace) 1 tab BID PO 05/31/17 09:00 05/31/17 20:29 Levothyroxine Sodium (Synthroid) 75 mcg DAILY@0600 PO 05/31/17 08:00 06/06/17 04:38 Oxycodone HCl (Roxicodone) 10 mg Q6H PRN PO PAIN 6-10 05/31/17 08:15 06/05/17 23:40 Promethazine HCl (Phenergan Supp) 25 mg Q6H PRN RECTAL NAUSEA OR VOMITING 05/31/17 09:45 06/01/17 18:17 Potassium Chloride/Sodium Chloride 1,000 ml @ 100 mls/hr Q10H IV 05/31/17 09:45 06/05/17 21:44 Venlafaxine HCl (Effexor Xr) 150 mg DAILY PO 06/01/17 09:00 06/05/17 10:25 Pantoprazole Sodium (Protonix) 40 mg DAILY PO 06/03/17 11:00 06/05/17 10:24 Ondansetron HCl (Zofran Odt) 4 mg Q6H PRN PO NAUSEA OR VOMITING 06/03/17 11:00 06/05/17 23:39 Lorazepam (Ativan) 0.5 mg Q8H PRN PO ANXIETY 06/03/17 11:00 06/05/17 23:39 Trimethoprim/ Sulfamethoxazole (Bactrim Ds 800-160 Mg) 1 tab Q12HR PO 06/03/17 21:00 06/05/17 21:43 Lactated Ringer's 1,000 ml @ 30 mls/hr Q24H PRN IV SEE LABEL COMMENTS 06/04/17 12:00 06/07/17 11:59 06/04/17 11:47 Artificial Tears (Tears Naturale Opth Soln) 1 drop Q4H PRN EACH EYE blurry vision 06/04/17 13:00 06/04/17 21:45 Objective Remarks GENERAL: Well-nourished, well-developed patient. SKIN: Warm and dry. HEAD: Normocephalic. EYES: No scleral icterus. No injection or drainage. B subconjunctival hemorrhage improving. NECK: Supple, trachea midline. No JVD or lymphadenopathy. LYMPHATIC: No adenopathy. CARDIOVASCULAR: Regular rate and rhythm without murmurs. RESPIRATORY: Breath sounds equal bilaterally. No accessory muscle use. GASTROINTESTINAL: Abdomen soft, non-tender, nondistended. No tenderness biopsy site. EXTREMITIES: No cyanosis, or edema. MUSCULOSKELETAL: Adequate muscle tone. NEUROLOGICAL: No obvious focal deficit. Awake, alert, and oriented x3. PSYCHIATRIC: Appropriate mood and affect; insight and judgment normal. Assessment/Plan Problem List: (1) Bleeding diathesis ICD Codes: D69.9 - Hemorrhagic condition, unspecified Plan: --PT, aPTT slightly elevated due to liver d/c +/- vit K deficiency. Vitk 10mg sub Q x 1 06/05. --has easy bruising all her life but it seems to be worse over the last one year. --bleeds easily with minor cuts. --has easy bruising. --had nausea and was retching and developed bilateral subconjunctival hemorrhage. --has no family history of bleeding disorder. --has had multiple surgeries in the past without bleeding complications. --PTT was normal. Her INR was 1.3. --denies taking any NSAIDs or blood thinners. She was on prescription fish oil for several years, which she has self-discontinued recently. (2) Transaminitis ICD Codes: R74.0 - Nonspecific elevation of levels of transaminase and lactic acid dehydrogenase [LDH] Status: Acute Plan: --Elevated liver enzymes. --Workup showed fatty liver. --06/05 liver biopsy. (3) UTI (urinary tract infection) ICD Codes: N39.0 - Urinary tract infection, site not specified Status: Resolved Plan: --on Bactrim (4) Subconjunctival hemorrhage of both eyes ICD Codes: H11.33 - Conjunctival hemorrhage, bilateral Plan 1. coagulation studies lab pending 2. monitor CBC 3. Monitor for sign of bleeding. Evangelist Galdamez MD Jun 06, 2017 07:36
[2017-06-06] MEDS: ONDANSETRON ODT 4 MG TAB PO PRN ×3 (08:21→18:10)
[2017-06-06] MEDS: SODIUM CHLORIDE 0.9% FLUSH 10 ML FLUSH IV FLUSH SCH ×2 (09:00→21:00)
[2017-06-06] MEDS: DOCUSATE SODIUM 50 MG/SENNA 8.6 MG TAB PO SCH ×3 (09:00→21:41)
[2017-06-06] MEDS: POTASSIUM CHLORIDE 25 MEQ EFFERVESCENT TAB PO SCH ×2 (09:00→09:13)
[2017-06-06] MEDS: PANTOPRAZOLE SOD 40 MG DELAYED RELEASE TAB PO SCH ×2 (09:12→21:41)
[2017-06-06] MEDS: VENLAFAXINE HCL XR 75 MG CAP PO SCH (09:12)
[2017-06-06] MEDS: SULFAMETHOXAZOLE-TRIMETHOPRIM DS 800-160 MG TAB PO SCH ×2 (09:12→21:40)
[2017-06-06] MEDS: NS + KCL 20 MEQ INJ 1,000 ML IV SCH ×2 (09:20→21:57)
[2017-06-06 09:38] LABS: AUTOMATED NEUTROPHIL # 4.3 TH/MM3 (1.8-7.7); BASOPHIL # 0.1 TH/MM3 (0-0.2); EOSINOPHIL # 0.1 TH/MM3 (0-0.4); HEMATOCRIT 38.8 % (35.0-46.0); HEMOGLOBIN 13.1 GM/DL (11.6-15.3); LYMPH % 21.2 % (9.0-44.0); LYMPHOCYTE # 1.4 TH/MM3 (1.0-4.8); MEAN CELL VOLUME 110.5 FL (80.0-100.0); MEAN CORPUSCULAR HEMOGLOBIN 37.4 PG (27.0-34.0); MEAN CORPUSCULAR HGB CONC 33.9 % (32.0-36.0); MEAN PLATELET VOLUME 8.7 FL (7.0-11.0); MONO % 8.8 % (0.0-8.0); MONOCYTE # 0.6 TH/MM3 (0-0.9); PLATELET COUNT 215 TH/MM3 (150-450); RED BLOOD COUNT 3.51 MIL/MM3 (4.00-5.30); RED CELL DISTRIBUTION WIDTH 14.6 % (11.6-17.2); WHITE BLOOD COUNT 6.4 TH/MM3 (4.0-11.0)
[2017-06-06 09:58] LABS: ALBUMIN 3.3 GM/DL (3.4-5.0); AST (GOT) 106 U/L (15-37); BICARBONATE 23.6 MEQ/L (21.0-32.0); BLOOD UREA NITROGEN 3 MG/DL (7-18); CALCIUM 9.4 MG/DL (8.5-10.1); CHLORIDE 106 MEQ/L (98-107); CREATININE 0.62 MG/DL (0.50-1.00); GLOMERULAR FILTRATION RATE 101 ML/MIN (>89); GLUCOSE,RANDOM 76 MG/DL (74-106); SODIUM (NA) 139 MEQ/L (136-145)
[2017-06-06 10:04] LABS: ALKALINE PHOSPHATASE 228 U/L (45-117); ALT (GPT) 80 U/L (10-53); TOTAL BILIRUBIN ADULT 1.2 MG/DL (0.2-1.0); TOTAL PROTEIN 7.3 GM/DL (6.4-8.2)
--- NOTE | 2017-06-06 11:41 | HHI.PR ---
Subjective Remarks Follow up abdominal pain, elevated LFTs. Patient reporting difficulty swallowing food. She can only tolerate popsicles. Also still having abdominal pain, nausea. No vomiting. Objective Vitals Vital Signs Date Time Temp Pulse Resp B/P (MAP) Pulse Ox O2 Delivery O2 Flow Rate FiO2 06/06/17 08:33 97.8 83 16 130/60 (83) 96 06/06/17 04:00 98.0 75 18 129/62 (84) 98 06/06/17 00:00 97.9 85 18 130/63 (85) 97 06/05/17 20:00 85 06/05/17 20:00 97.9 85 18 115/74 (88) 95 06/05/17 17:41 98.2 85 18 127/58 (81) 97 06/05/17 12:23 98.0 85 18 116/58 (77) 98 I/O 06/05/17 06/05/17 06/05/17 06/06/17 06/06/17 06/06/17 07:00 15:00 23:00 07:00 15:00 23:00 Intake Total 748 ml 50 ml 1600 ml 800 ml Output Total 1 ml Balance 748 ml 50 ml 1599 ml 800 ml Intake Oral 600 ml IV Total 748 ml 50 ml 1000 ml 800 ml Stool Total 1 ml # Voids 6 6 3 # Bowel Movements 2 Result Diagram: 06/06/17 0735 06/06/17 0735 Imaging Last Impressions Liver Biopsy CT 06/05/17 0654 Signed Impressions: Service Date/Time: Monday, June 05, 2017 08:16 - CONCLUSION: Uncomplicated CT guided biopsy. Finesse Sierra MD Head CT 06/02/17 0000 Signed Impressions: Service Date/Time: Friday, June 02, 2017 20:22 - CONCLUSION: 1. No acute findings in the brain. 2. Mild bilateral frontal cortical atrophy. Chet Castro MD Cholangiopancreatography MRI 06/01/17 0000 Signed Impressions: Service Date/Time: Thursday, June 01, 2017 09:02 - CONCLUSION: 1. Intra-and extrahepatic biliary ducts are patent without stone disease. CBD is upper limits of normal post cholecystectomy. 2. Very heterogeneous signal intensity throughout the liver characteristic of scattered hepatic fatty infiltration. 3. Benign-appearing 2.8 cm cyst posteriorly in the splenic parenchyma. Raji Marshall MD Abdomen/Pelvis CT 05/31/17 0149 Signed Impressions: Service Date/Time: May 03:06 - CONCLUSION: 1. Severe hepatic steatosis. 2. 2.5 cm splenic low-density lesion, likely benign. 3. Status post cholecystectomy. 4. No bowel obstruction. Alex Barcenas MD Objective Remarks General: No acute distress. HEENT: Bilateral periorbital ecchymosis. Bilateral subconjunctival hemorrhage. Heart: Regular rate and rhythm. No murmur. Lungs: Clear to auscultation bilaterally. No wheezes, rales, or rhonchi. Breathing is nonlabored. Abdomen: Soft, diffuse tenderness to palpation, nondistended. Extremities: No lower extremity edema. Psych: Alert and oriented. Procedures 06/04/17 EGD 06/05/17 CT-guided biopsy of the liver Urinary Catheter: No Vascular Central Line Catheter: No A/P Problem List: (1) Intractable abdominal pain ICD Code: R10.9 - Unspecified abdominal pain Status: Acute (2) UTI (urinary tract infection) ICD Code: N39.0 - Urinary tract infection, site not specified Status: Resolved (3) Elevated LFTs ICD Code: R79.89 - Other specified abnormal findings of blood chemistry Status: Acute (4) Subconjunctival hemorrhage of both eyes ICD Code: H11.33 - Conjunctival hemorrhage, bilateral Assessment and Plan 1. Abdominal pain, nausea, vomiting: CT of the abdomen and pelvis shows severe steatosis. Appreciate gastroenterology recommendations. Continue antiemetics, IV fluids, PPI. Status post EGD. Now reporting dysphagia. 2. Transaminitis: LFTs remain elevated. Labs are pending today. Patient believes that her liver problems are secondary to chronic pain medication use and she states that she has been taking pain medication from her pain management physician that has Tylenol in it and has been doing so for years. S/ P liver biopsy, pathology pending. 3. UTI: Continue antibiotics. 4. Hypothyroidism: Continue Synthroid. Repeat TSH in 4-6 weeks. 5. Hypokalemia: Improved. 6. Anxiety/depression: Chronic. Continue Effexor, Klonopin. 7. DVT prophylaxis: SCDs, IMANI hose. 8. Bilateral subconjunctival hemorrhage: Likely secondary to frequent heavy vomiting. Patient still reporting blurred vision. Appreciate ophthalmology consult. 9. Coagulopathy: Patient reports easy bruising/bleeding for the past year. Appreciate hematology recommendations. Discharge Planning Pending further clinical improvement. Charles Turner MD Jun 06, 2017 11:41
[2017-06-06 15:09] LABS: INTERNATIONAL NORMALIZED RATIO 1.1 RATIO; PROTHROMBIN TIME - PATIENT 12.6 SEC (9.8-11.6)
--- NOTE | 2017-06-06 15:23 | HHI.GIFU ---
Subjective Remarks States she is having more nausea today. Tried to eat more- had eggs for breakfast, but felt nauseous afterwards. Continues to have abdominal pain, worse with food intake. She is taking the Morphine every 3 hours and states she takes the roxicodone to help her sleep. (Sailaja Pineda) Objective Vitals I&O Vital Signs Date Time Temp Pulse Resp B/P (MAP) Pulse Ox O2 Delivery O2 Flow Rate FiO2 06/06/17 12:42 97.9 75 18 140/67 (91) 98 06/06/17 08:33 97.8 83 16 130/60 (83) 96 06/06/17 04:00 98.0 75 18 129/62 (84) 98 06/06/17 00:00 97.9 85 18 130/63 (85) 97 06/05/17 20:00 85 06/05/17 20:00 97.9 85 18 115/74 (88) 95 06/05/17 17:41 98.2 85 18 127/58 (81) 97 I/O 06/05/17 06/05/17 06/05/17 06/06/17 06/06/17 06/06/17 07:00 15:00 23:00 07:00 15:00 23:00 Intake Total 748 ml 50 ml 1600 ml 800 ml Output Total 1 ml Balance 748 ml 50 ml 1599 ml 800 ml Intake Oral 600 ml IV Total 748 ml 50 ml 1000 ml 800 ml Stool Total 1 ml # Voids 6 6 3 # Bowel Movements 2 Laboratory Laboratory Tests Test 06/06/17 07:35 06/06/17 14:23 White Blood Count 6.4 Red Blood Count 3.51 Hemoglobin 13.1 Hematocrit 38.8 Mean Corpuscular Volume 110.5 Mean Corpuscular Hemoglobin 37.4 Mean Corpuscular Hemoglobin Concent 33.9 Red Cell Distribution Width 14.6 Platelet Count 215 Mean Platelet Volume 8.7 Neutrophils (%) (Auto) 67.0 Lymphocytes (%) (Auto) 21.2 Monocytes (%) (Auto) 8.8 Eosinophils (%) (Auto) 2.0 Basophils (%) (Auto) 1.0 Neutrophils # (Auto) 4.3 Lymphocytes # (Auto) 1.4 Monocytes # (Auto) 0.6 Eosinophils # (Auto) 0.1 Basophils # (Auto) 0.1 CBC Comment DIFF FINAL Differential Comment Blood Urea Nitrogen 3 Creatinine 0.62 Random Glucose 76 Total Protein 7.3 Albumin 3.3 Calcium Level 9.4 Alkaline Phosphatase 228 Aspartate Amino Transf (AST/SGOT) 106 Alanine Aminotransferase (ALT/SGPT) 80 Total Bilirubin 1.2 Sodium Level 139 Potassium Level 3.6 Chloride Level 106 Carbon Dioxide Level 23.6 Anion Gap 9 Estimat Glomerular Filtration Rate 101 Prothrombin Time 12.6 Prothromb Time International Ratio 1.1 Activated Partial Thromboplast Time 30.3 Date/Time Source Procedure Growth Status 05/31/17 01:50 Urine Random Urine Urine Culture - Final Escherichia Coli Complete Imaging Last Impressions Liver Biopsy CT 06/05/17 0654 Signed Impressions: Service Date/Time: Monday, June 05, 2017 08:16 - CONCLUSION: Uncomplicated CT guided biopsy. Finesse Sierra MD Head CT 06/02/17 0000 Signed Impressions: Service Date/Time: Friday, June 02, 2017 20:22 - CONCLUSION: 1. No acute findings in the brain. 2. Mild bilateral frontal cortical atrophy. Chet Castro MD Cholangiopancreatography MRI 06/01/17 0000 Signed Impressions: Service Date/Time: Thursday, June 01, 2017 09:02 - CONCLUSION: 1. Intra-and extrahepatic biliary ducts are patent without stone disease. CBD is upper limits of normal post cholecystectomy. 2. Very heterogeneous signal intensity throughout the liver characteristic of scattered hepatic fatty infiltration. 3. Benign-appearing 2.8 cm cyst posteriorly in the splenic parenchyma. Raji Marshall MD Abdomen/Pelvis CT 05/31/17 0149 Signed Impressions: Service Date/Time: May 03:06 - CONCLUSION: 1. Severe hepatic steatosis. 2. 2.5 cm splenic low-density lesion, likely benign. 3. Status post cholecystectomy. 4. No bowel obstruction. Alex Barcenas MD Physical Exam HEENT: Bilateral red sclera CHEST: CTA CARDIAC: RRR ABDOMEN: Soft, nondistended, mildly tender at epigastric area; no hepatosplenomegaly; bowel sounds are present in all four quadrants. EXTREMITIES: No clubbing, cyanosis, or edema. SKIN: Normal; no rash; no jaundice. RECEIVING DOCK CHECKER: No focal deficits; alert and oriented times three. (Sailaja Pineda) Assessment and Plan Plan ASSESSMENT - N/V/D, Abdominal pain. CT Abdomen and pelvis with IV contrast (05/31/17)----> Severe hepatic steatosis, 2.5 cm splenic low density lesion, likely benign, s/p cholecystectomy, no bowel obstruction. S/P EGD (06/05/17)--> 1. Duodenitis second portion-biopsy, esophagitis distal esophagus-biopsy, gastritis antrum-biopsy, 2. Retroflexed views revealed a hiatal hernia. Pathology duodenal mucosa without significant histopathologic abnormality, gastric mucosa without significant histopathologic abnormality, hyperplastic squamous mucosa of distal esophagus. PPI. States her nausea is worse today- whenever she tries to eat more solids. She also reports that she is taking the Morphine q3h and then the roxicodone to help her sleep. Suspect that her narcotic use could be contributing to her symptoms. D/W patient limiting narcotics. Will give trial of reglan. Increase PPI to BID. - Elevated LFTs. Does not have GB. S/P MRCP (06/01/17)---> intra and extrahepatic biliary ducts are patent without stone disease. CBD is upper limits of normal post cholecystectomy, very heterogeneous signal intensity throughout the liver characteristic of scattered hepatic fatty infiltration. Liver function labs improving. Hep panel negative, MANJINDER negative, ASMA negative, AMA< 20.0, Alpha 1 Antitrypsin 153. Ceruloplasmin 23, Iron saturation 23.3%. ? medication induced. States she was taking 4 Percocet per day at home x 10 years. S/P Liver biopsy (06/05/17)---> pathology pending. T. Bili 1.2, AST 106, ALT 80, Alk Phosph 228. - Scleral hemorrhage from vomiting, orbital bruising. Head CT (06/02/17)--1. No acute findings in the brain. 2. Mild bilateral frontal cortical atrophy. S/P Ophthalmology evaluation PLAN - SHELLIE - Await pathology from liver biopsy - Increase Protonix to 40mg po BID - Trial of reglan 10mg IV q8h - Monitor labs - Supportive care - Further recommendations to follow based on results of above. - Patient seen and examined by Dr. Aponte and myself and this note is written on her behalf. (Sailaja Pineda) Sailaja Pineda Jun 06, 2017 15:23 Karyn Aponte MD Jun 06, 2017 19:42
[2017-06-06 19:52] LABS: APTT VON WILL EVAL 31 sec (22-34); COAG FACTOR VIII 150 (50-180); FACTOR VIII(8) ACTIVITY 136 (50-180); VWF RISTOCETIN CO FACTOR 237 (42-200)
[2017-06-06] MEDS: METOCLOPRAMIDE HCL 10 MG/2 ML VIAL IV PUSH SCH (21:41)
[2017-06-06] MEDS: LORazepam 0.5 MG TAB PO PRN (23:50)
[2017-06-06 23:54] LABS: THROMBIN TIME 18 sec (13-19); VWF AG GREATER THAN 300 % (50-217)
[2017-06-07] VITALS: BP 100/70; PULSE 89; RESP 18; TEMP 97.6; O2SAT 94
[2017-06-07 04:00] VITALS: BP 130/66; PULSE 78; RESP 18; TEMP 98.2; O2SAT 95
[2017-06-07] MEDS: LEVOTHYROXINE SODIUM 75 MCG TAB PO SCH (05:37)
[2017-06-07] MEDS: METOCLOPRAMIDE HCL 10 MG/2 ML VIAL IV PUSH SCH (05:40)
[2017-06-07 07:55] VITALS: BP 131/60; PULSE 82; RESP 18; TEMP 98; O2SAT 96
[2017-06-07 08:30] LABS: AUTOMATED NEUTROPHIL # 4.3 TH/MM3 (1.8-7.7); BASOPHIL % 0.4 % (0.0-2.0); EOSINOPHIL # 0.1 TH/MM3 (0-0.4); EOSINOPHIL % 1.6 % (0.0-4.0); HEMATOCRIT 38.7 % (35.0-46.0); LYMPH % 19.9 % (9.0-44.0); LYMPHOCYTE # 1.3 TH/MM3 (1.0-4.8); MEAN CELL VOLUME 110.3 FL (80.0-100.0); MEAN CORPUSCULAR HEMOGLOBIN 37.1 PG (27.0-34.0); MEAN CORPUSCULAR HGB CONC 33.6 % (32.0-36.0); MEAN PLATELET VOLUME 8.7 FL (7.0-11.0); MONO % 11.8 % (0.0-8.0); MONOCYTE # 0.8 TH/MM3 (0-0.9); NEUT % 66.3 % (16.0-70.0); PLATELET COUNT 233 TH/MM3 (150-450); RED CELL DISTRIBUTION WIDTH 14.4 % (11.6-17.2); WHITE BLOOD COUNT 6.5 TH/MM3 (4.0-11.0)
[2017-06-07 08:46] LABS: ALBUMIN 3.1 GM/DL (3.4-5.0); AST (GOT) 114 U/L (15-37); BICARBONATE 24.1 MEQ/L (21.0-32.0); CALCIUM 9.4 MG/DL (8.5-10.1); CHLORIDE 106 MEQ/L (98-107); CREATININE 0.64 MG/DL (0.50-1.00); GLOMERULAR FILTRATION RATE 98 ML/MIN (>89); GLUCOSE,RANDOM 82 MG/DL (74-106); SODIUM (NA) 140 MEQ/L (136-145)
[2017-06-07 08:50] LABS: ALKALINE PHOSPHATASE 218 U/L (45-117); ALT (GPT) 81 U/L (10-53); BLOOD UREA NITROGEN 3 MG/DL (7-18); TOTAL BILIRUBIN ADULT 1.2 MG/DL (0.2-1.0); TOTAL PROTEIN 7.2 GM/DL (6.4-8.2)
[2017-06-07] MEDS: SULFAMETHOXAZOLE-TRIMETHOPRIM DS 800-160 MG TAB PO SCH (09:22)
[2017-06-07] MEDS: PANTOPRAZOLE SOD 40 MG DELAYED RELEASE TAB PO SCH (09:22)
[2017-06-07] MEDS: LORazepam 0.5 MG TAB PO PRN (09:22)
[2017-06-07] MEDS: VENLAFAXINE HCL XR 75 MG CAP PO SCH (09:22)
[2017-06-07] MEDS: DOCUSATE SODIUM 50 MG/SENNA 8.6 MG TAB PO SCH (09:22)
[2017-06-07] MEDS ORDERED: MORPHINE SULFATE 4 MG/ML INJ IV PUSH PRN (09:30)
[2017-06-07] MEDS ORDERED: METO10TA PO (09:36)
[2017-06-07] MEDS ORDERED: OXYC-395 PO (09:36)
[2017-06-07] MEDS ORDERED: SULF1TAB23 PO (09:36)
[2017-06-07] MEDS ORDERED: ZOFR8TAB PO (09:36)
[2017-06-07 10:00] VITALS: PULSE 80
--- NOTE | 2017-06-07 10:10 | HHI.DS ---
Discharge Summary Admission Date May 31, 2017 at 12:00 Discharge Date: Jun 07, 2017 Admitting Diagnosis intractable abdominal pain, transaminitis (1) Intractable abdominal pain ICD Code: R10.9 - Unspecified abdominal pain Diagnosis: Principal Status: Resolved (2) UTI (urinary tract infection) ICD Code: N39.0 - Urinary tract infection, site not specified Diagnosis: Secondary Status: Resolved (3) Elevated LFTs ICD Code: R79.89 - Other specified abnormal findings of blood chemistry Diagnosis: Principal Status: Acute (4) Subconjunctival hemorrhage of both eyes ICD Code: H11.33 - Conjunctival hemorrhage, bilateral Diagnosis: Secondary (5) Transaminitis ICD Code: R74.0 - Nonspecific elevation of levels of transaminase and lactic acid dehydrogenase [LDH] Diagnosis: Secondary Status: Acute (6) Esophagitis ICD Code: K20.9 - Esophagitis, unspecified Diagnosis: Secondary Status: Acute (7) Duodenitis ICD Code: K29.80 - Duodenitis without bleeding Diagnosis: Secondary Status: Acute (8) Gastritis ICD Code: K29.70 - Gastritis, unspecified, without bleeding Diagnosis: Secondary Status: Acute Procedures 06/04/17 EGD 06/05/17 CT-guided biopsy of the liver Brief History - From Admission Obtained from admitting physician's H&P This is a 52-year-old female with a PMH of Anxiety, GERD, Hyperlipidemia and Hypothyroidism who presented to the ER with complaints of abdominal pain in addition to nausea and vomiting x1 wk. Denies fever, chills or diarrhea. States unable to take PO due to persistent nausea/vomiting. No h/o similar symptoms. On arrival, BP 175/92, HR 119, O2 sat 96% on RA, Afebrile. CBC unremarkable except for MCV 108.3, previously 109.4 on 12/08/16. K+ 3.4. GFR 72. LFTs mildly increased in comparison to previous labs from 12/08/16. Troponin negative. TSH 5.74. Lipase 66. 0.2. Alcohol negative. Tylenol negative. UA with UTI. CT Abd/Pelvis w/ severe hepatic steatosis, 2.5 cm splenic low-density lesion likely benign. S/p multiple doses of Morphine IV, Ativan and Zofran w/ minimal improvement. CBC/BMP: 06/07/17 0743 06/07/17 0743 Significant Findings Laboratory Tests Test 06/04/17 10:30 06/05/17 06:14 06/05/17 11:40 06/06/17 07:35 Activated Partial Thromboplast Time 30.7 SEC (24.3-30.1) 32.0 SEC (24.3-30.1) von Willebrand Factor Antigen GREATER THAN 300 % (50-217) von Willebrand Ristocetin Cofactor 237 (42-200) Red Blood Count 3.39 MIL/MM3 (4.00-5.30) 3.51 MIL/MM3 (4.00-5.30) Mean Corpuscular Volume 109.9 FL (80.0-100.0) 110.5 FL (80.0-100.0) Mean Corpuscular Hemoglobin 37.8 PG (27.0-34.0) 37.4 PG (27.0-34.0) Neutrophils (%) (Auto) 76.1 % (16.0-70.0) Monocytes (%) (Auto) 10.3 % (0.0-8.0) 8.8 % (0.0-8.0) Blood Urea Nitrogen 3 MG/DL (7-18) 3 MG/DL (7-18) Albumin 3.3 GM/DL (3.4-5.0) 3.3 GM/DL (3.4-5.0) Alkaline Phosphatase 220 U/L (45-117) 228 U/L (45-117) Aspartate Amino Transf (AST/SGOT) 118 U/L (15-37) 106 U/L (15-37) Alanine Aminotransferase (ALT/SGPT) 93 U/L (10-53) 80 U/L (10-53) Total Bilirubin 1.6 MG/DL (0.2-1.0) 1.2 MG/DL (0.2-1.0) Prothrombin Time 13.9 SEC (9.8-11.6) Fibrinogen 392 mg/dL (227-377) Test 06/06/17 14:23 06/07/17 07:43 Prothrombin Time 12.6 SEC (9.8-11.6) Activated Partial Thromboplast Time 30.3 SEC (24.3-30.1) Red Blood Count 3.50 MIL/MM3 (4.00-5.30) Mean Corpuscular Volume 110.3 FL (80.0-100.0) Mean Corpuscular Hemoglobin 37.1 PG (27.0-34.0) Monocytes (%) (Auto) 11.8 % (0.0-8.0) Blood Urea Nitrogen 3 MG/DL (7-18) Albumin 3.1 GM/DL (3.4-5.0) Alkaline Phosphatase 218 U/L (45-117) Aspartate Amino Transf (AST/SGOT) 114 U/L (15-37) Alanine Aminotransferase (ALT/SGPT) 81 U/L (10-53) Total Bilirubin 1.2 MG/DL (0.2-1.0) Imaging Last Impressions Liver Biopsy CT 06/05/17 0654 Signed Impressions: Service Date/Time: Monday, June 05, 2017 08:16 - CONCLUSION: Uncomplicated CT guided biopsy. Finesse Sierra MD Head CT 06/02/17 0000 Signed Impressions: Service Date/Time: Friday, June 02, 2017 20:22 - CONCLUSION: 1. No acute findings in the brain. 2. Mild bilateral frontal cortical atrophy. Chet Castro MD Cholangiopancreatography MRI 06/01/17 0000 Signed Impressions: Service Date/Time: Thursday, June 01, 2017 09:02 - CONCLUSION: 1. Intra-and extrahepatic biliary ducts are patent without stone disease. CBD is upper limits of normal post cholecystectomy. 2. Very heterogeneous signal intensity throughout the liver characteristic of scattered hepatic fatty infiltration. 3. Benign-appearing 2.8 cm cyst posteriorly in the splenic parenchyma. Raji Marshall MD Abdomen/Pelvis CT 05/31/17 0149 Signed Impressions: Service Date/Time: May 03:06 - CONCLUSION: 1. Severe hepatic steatosis. 2. 2.5 cm splenic low-density lesion, likely benign. 3. Status post cholecystectomy. 4. No bowel obstruction. Alex Barcenas MD PE at Discharge General: No acute distress. HEENT: Bilateral periorbital ecchymosis. Bilateral subconjunctival hemorrhage. Heart: Regular rate and rhythm. No murmur. Lungs: Clear to auscultation bilaterally. No wheezes, rales, or rhonchi. Breathing is nonlabored. Abdomen: Soft, diffuse tenderness to palpation, nondistended. Extremities: No lower extremity edema. Psych: Alert and oriented. Hospital Course These are the medical issues addressed during this hospitalization: 1. Present intractable Abdominal pain, nausea, vomiting: CT of the abdomen and pelvis shows severe steatosis. Patient is status post liver biopsy and will follow-up with GI as outpatient. Appreciate gastroenterology recommendations. Continue antiemetics, IV fluids, PPI. Status post EGD which showed duodenitis, esophagitis and gastritis. Patient is status post swallow evaluation and is tolerating clear liquids now and would like to advance to regular diet upon discharge to home. We suspect possible gastric paresis due to her improvement on Reglan. It counseled the patient concerning worsening of her gastroparesis and abdominal pain due to chronic narcotic use. She will work on decreasing her chronic narcotic use and continues regular follow-up with GI as an outpatient. 2. Transaminitis: LFTs remain elevated. Labs are pending today. Patient believes that her liver problems are secondary to chronic pain medication use and she states that she has been taking pain medication from her pain management physician that has Tylenol in it and has been doing so for years. S/ P liver biopsy, she has appointment with Dr. Randall her chronic pain management physician in one week and will follow-up closely with him to manage her chronic pain. 4. Hypothyroidism: Continue Synthroid. Repeat TSH in 4-6 weeks. 5. Hypokalemia: Improved. 6. Anxiety/depression: Chronic. Continue Effexor, Klonopin. 7. DVT prophylaxis: SCDs, IMANI hose. 8. Bilateral subconjunctival hemorrhage: Likely secondary to frequent heavy vomiting. No complaints of pain at this time. Appreciate ophthalmology consult. 9. Coagulopathy: Patient reports easy bruising/bleeding for the past year. Appreciate hematology recommendations. At this time, patient has a maximum benefit from hospitalization. 28 pills of oxycodone prescribed until she is able see her chronic medication. 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 She is also to follow with GI Dr. Aponte Pt Condition on Discharge: Good Discharge Disposition: Discharge Home Discharge Time: <= 30 minutes Discharge Instructions DIET: Follow Instructions for: As Tolerated, No Restrictions Activities you can perform: Regular-No Restrictions Follow up Referrals: Gastroenterology with Karyn Aponte MD PCP Follow-up New Medications: Metoclopramide (Metoclopramide) 10 Mg Tab 10 MG PO TIDAC for Nausea, #90 TAB 0 Refills Oxycodone (Oxycodone) 10 Mg Tab 10 MG PO Q6H PRN for PAIN, #28 TAB 0 Refills Sulfamethoxazole-Trimethoprim (Sulfamethoxazole-Trimethoprim) 800-160 Mg Tab 1 TAB PO Q12HR for Infection, #8 TAB Continued Medications: Clonazepam (Clonazepam) 1 Mg Tab 1 MG PO BID PRN for ANXIETY for 7 Days, TAB 0 Refills Gemfibrozil (Gemfibrozil) 600 Mg Tab 600 MG PO BID, #60 TAB 0 Refills Take 30 minutes prior to breakfast and dinner. Hyoscyamine Odt (Levsin-SL) 0.125 Mg Subl 0.125 MG SL Q4H PRN for Gastrointestinal disorders, TAB.SL 0 Refills Levothyroxine (Levothyroxine) 50 Mcg Tab 50 MCG PO DAILY for Thyroid, #30 TAB 0 Refills Qtkqo-3-Vxyb Ethyl Esters (Lovaza) 1 Gm Cap 2 GM PO BID for Manage Triglycerides, #120 CAP 0 Refills Ondansetron (Zofran) 8 Mg Tab 8 MG PO BID PRN for NAUSEA OR VOMITING, #30 TAB 0 Refills (This prescription has been renewed) Sumatriptan (Imitrex) 100 Mg Tab 100 MG PO BID PRN for MIGRAINE HEADACHE, TAB 0 Refills If a satisfactory response has not been obtained at 2 hours, a second dose may be administered Valacyclovir (Valtrex) 500 Mg Tab 500 MG PO DAILY for Mgmt Viral Infection, #30 TAB 0 Refills Venlafaxine ER 24 HR (Effexor XR 24 HR) 150 Mg Cap 150 PO DAILY, #30 CAP 0 Refills Discontinued Medications: Oxycodone-Acetaminophen (Percocet) 10-325 mg Tab 1 TAB PO Q6H PRN for PAIN, TAB 0 Refills Venessa Oliva MD Jun 07, 2017 10:10
--- NOTE | 2017-06-07 16:51 | PD.ONC.PN ---
Subjective Subjective Remarks Late entry. No bleeding at the liver biopsy site. Eager to go home. Objective Data Date Time Temp Pulse Resp B/P (MAP) Pulse Ox O2 Delivery O2 Flow Rate FiO2 06/07/17 07:55 98.0 82 18 131/60 (83) 96 06/07/17 04:00 98.2 78 18 130/66 (87) 95 06/07/17 00:00 97.6 89 18 100/70 (80) 94 06/06/17 21:52 76 06/06/17 20:00 97.9 79 18 135/63 (87) 96 06/06/17 16:58 98.6 75 18 130/62 (84) 98 Result Diagram: 06/07/17 0743 06/07/17 0743 Laboratory Results Laboratory Tests Test 06/07/17 07:43 White Blood Count 6.5 TH/MM3 Red Blood Count 3.50 MIL/MM3 Hemoglobin 13.0 GM/DL Hematocrit 38.7 % Mean Corpuscular Volume 110.3 FL Mean Corpuscular Hemoglobin 37.1 PG Mean Corpuscular Hemoglobin Concent 33.6 % Red Cell Distribution Width 14.4 % Platelet Count 233 TH/MM3 Mean Platelet Volume 8.7 FL Neutrophils (%) (Auto) 66.3 % Lymphocytes (%) (Auto) 19.9 % Monocytes (%) (Auto) 11.8 % Eosinophils (%) (Auto) 1.6 % Basophils (%) (Auto) 0.4 % Neutrophils # (Auto) 4.3 TH/MM3 Lymphocytes # (Auto) 1.3 TH/MM3 Monocytes # (Auto) 0.8 TH/MM3 Eosinophils # (Auto) 0.1 TH/MM3 Basophils # (Auto) 0.0 TH/MM3 CBC Comment DIFF FINAL Differential Comment Blood Urea Nitrogen 3 MG/DL Creatinine 0.64 MG/DL Random Glucose 82 MG/DL Total Protein 7.2 GM/DL Albumin 3.1 GM/DL Calcium Level 9.4 MG/DL Alkaline Phosphatase 218 U/L Aspartate Amino Transf (AST/SGOT) 114 U/L Alanine Aminotransferase (ALT/SGPT) 81 U/L Total Bilirubin 1.2 MG/DL Sodium Level 140 MEQ/L Potassium Level 3.8 MEQ/L Chloride Level 106 MEQ/L Carbon Dioxide Level 24.1 MEQ/L Anion Gap 10 MEQ/L Estimat Glomerular Filtration Rate 98 ML/MIN Objective Remarks GENERAL: Well-nourished, well-developed patient. SKIN: Warm and dry. HEAD: Normocephalic. EYES: No scleral icterus. No injection or drainage. Bilateral subconjunctival hemorrhage improving. NECK: Supple, trachea midline. No JVD or lymphadenopathy. LYMPHATIC: No adenopathy. CARDIOVASCULAR: Regular rate and rhythm without murmurs. RESPIRATORY: Breath sounds equal bilaterally. No accessory muscle use. GASTROINTESTINAL: Abdomen soft, non-tender, nondistended. EXTREMITIES: No cyanosis, or edema. MUSCULOSKELETAL: Adequate muscle tone. NEUROLOGICAL: No obvious focal deficit. Awake, alert, and oriented x3. PSYCHIATRIC: Appropriate mood and affect; insight and judgment normal. Assessment/Plan Problem List: (1) Bleeding diathesis ICD Codes: D69.9 - Hemorrhagic condition, unspecified Plan: --Factor VIII and vWD panel normal. No apparent coagulopathy. --PT, aPTT slightly elevated due to liver d/c +/- vit K deficiency. Improved with Vitk 10mg sub Q x 1 06/05. --has easy bruising all her life but it seems to be worse over the last one year. --bleeds easily with minor cuts. --has easy bruising. --had nausea and was retching and developed bilateral subconjunctival hemorrhage. --has no family history of bleeding disorder. --has had multiple surgeries in the past without bleeding complications. --PTT was normal. Her INR was 1.3. --denies taking any NSAIDs or blood thinners. She was on prescription fish oil for several years, which she has self-discontinued recently. (2) Transaminitis ICD Codes: R74.0 - Nonspecific elevation of levels of transaminase and lactic acid dehydrogenase [LDH] Status: Acute Plan: --Elevated liver enzymes. --Workup showed fatty liver. --06/05 liver biopsy. (3) UTI (urinary tract infection) ICD Codes: N39.0 - Urinary tract infection, site not specified Status: Resolved Plan: --on Bactrim (4) Subconjunctival hemorrhage of both eyes ICD Codes: H11.33 - Conjunctival hemorrhage, bilateral Plan 1. Reviewed coagulation studies with patient. 2. monitor CBC 3. Monitor for sign of bleeding. 4. F/u PCP Evangelist Galdamez MD Jun 07, 2017 16:51
[2017-06-08 03:52] LABS: FACTOR IX(9) ACTIVITY 101 (60-160)
== END 2017-06-07 11:11 | disposition home or self-care (01) | DRG 433 ==
LOC: NEPC 00:52 → NEDA 04:17 → NEPHCDU 05:01 → OBSVTOIN 12:00 → N05A 06-01 16:49
PROVIDERS: ADMIT Family Medicine; ATTEND Family Medicine
PROC: 0DB98ZX Excision of Duodenum, Via Natural or Artificial Opening Endoscopic, Diagnostic (ICD-10-PCS; 2017-06-04)
PROC: 0DB68ZX Excision of Stomach, Via Natural or Artificial Opening Endoscopic, Diagnostic (ICD-10-PCS; 2017-06-04)
PROC: 0DB38ZX Excision of Lower Esophagus, Via Natural or Artificial Opening Endoscopic, Diagnostic (ICD-10-PCS; 2017-06-04)
PROC: 0FB03ZX Excision of Liver, Percutaneous Approach, Diagnostic (ICD-10-PCS; principal; 2017-06-05)
DX: K70.30 Alcoholic cirrhosis of liver without ascites (principal); D68.9 Coagulation defect, unspecified; D73.89 Other diseases of spleen; K31.84 Gastroparesis; R13.10 Dysphagia, unspecified; N39.0 Urinary tract infection, site not specified; R10.9 Unspecified abdominal pain; K76.0 Fatty (change of) liver, not elsewhere classified; E03.9 Hypothyroidism, unspecified; E78.5 Hyperlipidemia, unspecified; E87.6 Hypokalemia; G89.29 Other chronic pain; K21.0 Gastro-esophageal reflux disease with esophagitis; K29.70 Gastritis, unspecified, without bleeding; K29.80 Duodenitis without bleeding; K44.9 Diaphragmatic hernia without obstruction or gangrene; F41.8 Other specified anxiety disorders; F41.0 Panic disorder [episodic paroxysmal anxiety]; F43.10 Post-traumatic stress disorder, unspecified; H11.33 Conjunctival hemorrhage, bilateral; Z79.891 Long term (current) use of opiate analgesic; Z98.82 Breast implant status
CPT/HCPCS: 47000; 70470; 74177; 74181; 76377; 76937; 77012; 80048; 80053; 80074; 80076; 80307; 81001; 82103; 82390; 82550; 82552; 82728; 83036; 83520; 83540; 83550; 83690; 83735; 84100; 84439; 84443; 84484; 85025; 85240; 85245; 85246; 85247; 85250; 85384; 85610; 85670; 85730; 86038; 86255; 87077; 87086; 87186; 88305; 88307; 88312; 88313; 90686; 93005; 96361; 96365; 96375; 96376; C9113; J0696; J2060; J2250; J2270; J2405; J2765; J3010; J3430; J3480; J7030; J7120; Q2038; Q9967

== ENCOUNTER 2017-07-22 12:23 | Inpatient (IN) | payer OTHER ==
[~2017-07-22] VITALS: Ht 157.5 cm; Wt 64.1 kg
[2017-07-22] VITALS (7 sets, daily range): BP systolic 131–178; BP diastolic 61–86; PULSE 96–115; RESP 18–25; TEMP 98.2–98.5; O2SAT 93–99
[~2017-07-22 12:23] MED LIST changes: -ELUX1TAB PO; -ESTR2TAB PO; +LEVO50TA4 PO; +METO10TA PO; +OXYC-395 PO; -PERC10TA27 PO; -PROM25TA5 PO; -PROT40TA PO; +SULF1TAB23 PO
[2017-07-22] MEDS ORDERED: SODIUM CHLOR 0.9% 1000 ML INJ 1,000 ML IV SCH (12:34)
[2017-07-22] MEDS ORDERED: diphenhydrAMINE HCL 50 MG/ML VIAL IV PUSH ONE (12:45)
[2017-07-22] MEDS ORDERED: ONDANSETRON HCL 4 MG/2 ML VIAL IVP ONE (12:45)
[2017-07-22] MEDS ORDERED: SODIUM CHLORIDE 0.9% FLUSH 10 ML FLUSH IV FLUSH PRN ×3 (12:45→16:45)
[2017-07-22] MEDS ORDERED: PANTOPRAZOLE SODIUM 40 MG VIAL IVP ONE (12:45)
--- NOTE | 2017-07-22 12:45 | PD ---
HPI Chief Complaint: Abdominal Pain Time Seen by Provider: 12:36 Travel History International Travel<30 days: No Contact w/Intl Traveler<30days: No History of Present Illness HPI Patient is a 52-year-old female presenting to the emergency department evaluation of nausea, vomiting, abdominal pain. Patient states her symptoms started again this morning at 0400. She attempted to take oral Zofran but proceeded to vomit the pill back up. Patient states that her emesis appeared coffee ground. Patient also reports burning with urination for the last week. She denies any fevers, weakness, headache, chest pain. She states the abdominal pain is diffuse and rates her pain a 9 out of 10. Patient was brought to the emergency department via EMS, she was given 4 mg of Zofran en route. Patient states that the same thing happened to her last month and she was admitted to the hospital. PFSH Past Medical History Arthritis: Yes Asthma: No Blood Disorders: No Anxiety: Yes Depression: Yes Heart Rhythm Problems: No Cancer: No Cardiovascular Problems: Yes High Cholesterol: Yes Chemotherapy: No Chest Pain: No Congestive Heart Failure: No COPD: No Cerebrovascular Accident: No Diabetes: No Diverticulitis: Yes Gastrointestinal Disorders: Yes (hepatic steatosis, esophagitis, duodenitis) GERD: Yes Genitourinary: Yes Hiatal Hernia: No Immune Disorder: No Kidney Stones: Yes Musculoskeletal: Yes Psychiatric: Yes Reproductive: No Respiratory: No Migraines: Yes Radiation Therapy: No Renal Failure: No Seizures: No Sleep Apnea: No Thyroid Disease: Yes (hypo ) Triglycerides - High: Yes Ulcer: No ?: Not Tubal Ligation: Yes Past Surgical History Abdominal Surgery: No (gallbladder removal) Body Medical Devices: BREASTS IMPLANTS Cardiac Surgery: No Section: Yes Cholecystectomy: Yes Ear Surgery: No Endocrine Surgery: No Eye Surgery: No Hysterectomy: Yes Oral Surgery: No Thoracic Surgery: No Other Surgery: Yes (TUMMY TUCK, RHINOPLASTY, BREAST AUGMENTATION) Social History Alcohol Use: No Tobacco Use: No Substance Use: Yes (20 years ago; cocaine and marijuana) Allergies-Medications (Allergen,Severity, Reaction): Coded Allergies: clarithromycin (Verified Allergy, Severe, VOMITING, DIARRHEA, 07/22/17) NSAIDS (Non-Steroidal Anti-Inflamma (Verified Adverse Reaction, Intermediate, Nausea/Vomiting, 07/22/17) metronidazole (Verified Adverse Reaction, Intermediate, Nausea/Vomiting, 07/22/17) Reported Meds & Prescriptions Reported Meds & Active Scripts Active Metoclopramide (Metoclopramide HCl) 10 Mg Tab 10 Mg PO TIDAC Oxycodone (Oxycodone HCl) 10 Mg Tab 10 Mg PO Q6H PRN Sulfamethoxazole-Trimethoprim 800-160 Mg Tab 1 Tab PO Q12HR Zofran (Ondansetron HCl) 8 Mg Tab 8 Mg PO BID PRN Clonazepam 1 Mg Tab 1 Mg PO BID PRN 7 Days Reported Levothyroxine (Levothyroxine Sodium) 50 Mcg Tab 50 Mcg PO DAILY Imitrex (Sumatriptan Succinate) 100 Mg Tab 100 Mg PO BID PRN If a satisfactory response has not been obtained at 2 hours, a second dose may be administered Valtrex (Valacyclovir HCl) 500 Mg Tab 500 Mg PO DAILY Effexor XR 24 HR (Venlafaxine HCl) 150 Mg Cap 150 PO DAILY Levsin-SL (Hyoscyamine Sulfate) 0.125 Mg Subl 0.125 Mg SL Q4H PRN Gemfibrozil 600 Mg Tab 600 Mg PO BID Take 30 minutes prior to breakfast and dinner. Lovaza (Jcihe-7-[id number] Ethyl Esters) 1 Gm Cap 2 Gm PO BID Review of Systems Except as stated in HPI: all other systems reviewed are Neg General / Constitutional: No: Fever, Chills HENT: No: Headaches Cardiovascular: No: Chest Pain or Discomfort Respiratory: No: Cough, Shortness of Breath Gastrointestinal: Positive: Nausea, Vomiting, Abdominal Pain Genitourinary: Positive: Dysuria Neurologic: No: Weakness, Dizziness, Syncope Physical Exam Narrative GENERAL: Well-developed, well-nourished, alert female. Appears uncomfortable, in no acute distress. SKIN: Warm and dry. HEAD: Atraumatic. Normocephalic. EYES: Pupils equal and round. No scleral icterus. No injection or drainage. ENT: No nasal bleeding or discharge. Mucous membranes pink and moist. NECK: Trachea midline. No JVD. CARDIOVASCULAR: Regular rate and rhythm. RESPIRATORY: No accessory muscle use. Clear to auscultation. Breath sounds equal bilaterally. GASTROINTESTINAL: Abdomen soft, tender to palpation diffusely. Hepatic and splenic margins not palpable. Positive bowel sounds MUSCULOSKELETAL: Extremities without clubbing, cyanosis, or edema. No obvious deformities. Positive CVAT on the right NEUROLOGICAL: Awake and alert. No obvious cranial nerve deficits. Motor grossly within normal limits. Five out of 5 muscle strength in the arms and legs. Normal speech. PSYCHIATRIC: Appropriate mood and affect; insight and judgment normal. Data Data Last Documented VS Vital Signs Date Time Temp Pulse Resp B/P (MAP) Pulse Ox O2 Delivery O2 Flow Rate FiO2 07/22/17 14:43 96 24 133/63 (86) 99 Room Air 07/22/17 12:37 98.5 Orders Orders Complete Blood Count With Diff (07/22/17 12:34) Comprehensive Metabolic Panel (07/22/17 12:34) Lipase (07/22/17 12:34) Lactic Acid (07/22/17 12:34) Urinalysis - C+S If Indicated (07/22/17 12:34) Iv Access Insert/Monitor (07/22/17 12:34) Ecg Monitoring (07/22/17 12:34) Oximetry (07/22/17 12:34) Ondansetron Inj (Zofran Inj) (07/22/17 12:45) Pantoprazole Inj (Protonix Inj) (07/22/17 12:45) Sodium Chlor 0.9% 1000 Ml Inj (Ns 1000 M (07/22/17 12:34) Sodium Chloride 0.9% Flush (Ns Flush) (07/22/17 12:45) Diphenhydramine Inj (Benadryl Inj) (07/22/17 12:45) Act Partial Throm Time (Ptt) (07/22/17 12:37) Prothrombin Time / Inr (Pt) (07/22/17 12:37) Sodium Chlor 0.9% 1000 Ml Inj (Ns 1000 M (07/22/17 14:00) Sodium Chlor 0.9% 1000 Ml Inj (Ns 1000 M (07/22/17 14:00) Dicyclomine Inj (Bentyl Inj) (07/22/17 14:00) Lactic Acid (07/22/17 15:30) Morphine Inj (Morphine Inj) (07/22/17 14:00) Potassium Chlor 20 Meq Premix (Kcl 20 Me (07/22/17 14:15) Prochlorperazine Inj (Compazine Inj) (07/22/17 14:15) Admit Order (Ed Use Only) (07/22/17 14:56) Labs Laboratory Tests Test 07/22/17 12:55 07/22/17 13:05 Urine Color DARK-YELLOW Urine Turbidity CLEAR Urine pH 6.5 Urine Specific [place] 1.025 Urine Protein 100 mg/dL Urine Glucose (UA) NEG mg/dL Urine Ketones 150 mg/dL Urine Occult Blood TRACE Urine Nitrite NEG Urine Bilirubin SMALL Urine Urobilinogen 8.0 MG/DL Urine Leukocyte Esterase NEG Urine RBC 1 /hpf Urine WBC 2 /hpf Urine Squamous Epithelial Cells 1 /hpf Urine Bacteria RARE /hpf Urine Mucus FEW /lpf Microscopic Urinalysis Comment CULT NOT INDICATED White Blood Count 8.7 TH/MM3 Red Blood Count 3.49 MIL/MM3 Hemoglobin 13.4 GM/DL Hematocrit 38.7 % Mean Corpuscular Volume 111.1 FL Mean Corpuscular Hemoglobin 38.3 PG Mean Corpuscular Hemoglobin Concent 34.5 % Red Cell Distribution Width 17.4 % Platelet Count 117 TH/MM3 Mean Platelet Volume 9.4 FL Neutrophils (%) (Auto) 85.7 % Lymphocytes (%) (Auto) 7.8 % Monocytes (%) (Auto) 5.9 % Eosinophils (%) (Auto) 0.3 % Basophils (%) (Auto) 0.3 % Neutrophils # (Auto) 7.5 TH/MM3 Lymphocytes # (Auto) 0.7 TH/MM3 Monocytes # (Auto) 0.5 TH/MM3 Eosinophils # (Auto) 0.0 TH/MM3 Basophils # (Auto) 0.0 TH/MM3 CBC Comment DIFF FINAL Differential Comment Prothrombin Time 13.5 SEC Prothromb Time International Ratio 1.3 RATIO Activated Partial Thromboplast Time 29.7 SEC Blood Urea Nitrogen 9 MG/DL Creatinine 0.74 MG/DL Random Glucose 90 MG/DL Total Protein 8.5 GM/DL Albumin 3.7 GM/DL Calcium Level 9.0 MG/DL Alkaline Phosphatase 351 U/L Aspartate Amino Transf (AST/SGOT) 268 U/L Alanine Aminotransferase (ALT/SGPT) 126 U/L Total Bilirubin 4.2 MG/DL Sodium Level 138 MEQ/L Potassium Level 2.9 MEQ/L Chloride Level 101 MEQ/L Carbon Dioxide Level 16.0 MEQ/L Anion Gap 21 MEQ/L Estimat Glomerular Filtration Rate 83 ML/MIN Lactic Acid Level 5.5 mmol/L Lipase 120 U/L MDM Medical Decision Making Medical Screen Exam Complete: Yes Emergency Medical Condition: Yes Medical Record Reviewed: Yes Interpretation(s) Vital Signs Date Time Temp Pulse Resp B/P (MAP) Pulse Ox O2 Delivery O2 Flow Rate FiO2 07/22/17 14:43 96 24 133/63 (86) 99 Room Air 07/22/17 14:30 98 07/22/17 12:37 98.5 99 21 140/64 (89) 99 Laboratory Tests Test 07/22/17 12:55 07/22/17 13:05 Urine Color DARK-YELLOW Urine Turbidity CLEAR Urine pH 6.5 Urine Specific [place] 1.025 Urine Protein 100 mg/dL Urine Glucose (UA) NEG mg/dL Urine Ketones 150 mg/dL Urine Occult Blood TRACE Urine Nitrite NEG Urine Bilirubin SMALL Urine Urobilinogen 8.0 MG/DL Urine Leukocyte Esterase NEG Urine RBC 1 /hpf Urine WBC 2 /hpf Urine Squamous Epithelial Cells 1 /hpf Urine Bacteria RARE /hpf Urine Mucus FEW /lpf Microscopic Urinalysis Comment CULT NOT INDICATED White Blood Count 8.7 TH/MM3 Red Blood Count 3.49 MIL/MM3 Hemoglobin 13.4 GM/DL Hematocrit 38.7 % Mean Corpuscular Volume 111.1 FL Mean Corpuscular Hemoglobin 38.3 PG Mean Corpuscular Hemoglobin Concent 34.5 % Red Cell Distribution Width 17.4 % Platelet Count 117 TH/MM3 Mean Platelet Volume 9.4 FL Neutrophils (%) (Auto) 85.7 % Lymphocytes (%) (Auto) 7.8 % Monocytes (%) (Auto) 5.9 % Eosinophils (%) (Auto) 0.3 % Basophils (%) (Auto) 0.3 % Neutrophils # (Auto) 7.5 TH/MM3 Lymphocytes # (Auto) 0.7 TH/MM3 Monocytes # (Auto) 0.5 TH/MM3 Eosinophils # (Auto) 0.0 TH/MM3 Basophils # (Auto) 0.0 TH/MM3 CBC Comment DIFF FINAL Differential Comment Prothrombin Time 13.5 SEC Prothromb Time International Ratio 1.3 RATIO Activated Partial Thromboplast Time 29.7 SEC Blood Urea Nitrogen 9 MG/DL Creatinine 0.74 MG/DL Random Glucose 90 MG/DL Total Protein 8.5 GM/DL Albumin 3.7 GM/DL Calcium Level 9.0 MG/DL Alkaline Phosphatase 351 U/L Aspartate Amino Transf (AST/SGOT) 268 U/L Alanine Aminotransferase (ALT/SGPT) 126 U/L Total Bilirubin 4.2 MG/DL Sodium Level 138 MEQ/L Potassium Level 2.9 MEQ/L Chloride Level 101 MEQ/L Carbon Dioxide Level 16.0 MEQ/L Anion Gap 21 MEQ/L Estimat Glomerular Filtration Rate 83 ML/MIN Lactic Acid Level 5.5 mmol/L Lipase 120 U/L Vital Signs Date Time Temp Pulse Resp B/P (MAP) Pulse Ox O2 Delivery O2 Flow Rate FiO2 07/22/17 12:37 98.5 99 21 140/64 (89) 99 Differential Diagnosis Gastritis versus pyelonephritis versus metabolic abnormality versus other Narrative Course Patient is a 52-year-old female that presented to emergency department for evaluation of abdominal pain, nausea and vomiting, that started at 4 AM this morning. Vital signs are stable, labs ordered and pending. Medical records reviewed. Patient EGD an MRCP at the end of May, showed esophagitis as well as duodenitis. Zofran, Benadryl, famotidine ordered. 1345 patient reassessed, she has not vomited any further since additional medications were given. She is requesting ice chips, she is unhooking herself from her IV fluids to go to the bathroom. Lactic acid resulted at 5.5, likely secondary to vomiting. We'll repeat lactic acid at 1530. IV fluids were ordered, patient encouraged to stay in the room in order to allow IV fluids to infuse. Patient became tearful, she is requesting narcotic pain medication for her back as well as her abdomen. She states that she takes oxycodone twice daily, she does not know the dose. Morphine 2 mg IV 1 dose ordered. To intractable nausea and vomiting, hypokalemia and elevated lactic acid patient will be admitted under observation. Discussed with Dr. Scruggs who accepted admitted. Orders place. Patient is agreeable. Diagnosis Primary Impression: Intractable nausea and vomiting Qualified Codes: R11.2 - Nausea with vomiting, unspecified Additional Impressions: Hypokalemia Elevated lactic acid level Transaminitis Admitting Information Admitting Physician Requests: Observation Condition: Stable Ana Amezquita Jul 22, 2017 12:45
[2017-07-22 13:31] LABS: AUTOMATED NEUTROPHIL # 7.5 TH/MM3 (1.8-7.7); BASOPHIL % 0.3 % (0.0-2.0); EOSINOPHIL % 0.3 % (0.0-4.0); HEMATOCRIT 38.7 % (35.0-46.0); HEMO FLAGS DIFF FINAL; LYMPH % 7.8 % (9.0-44.0); LYMPHOCYTE # 0.7 TH/MM3 (1.0-4.8); MEAN CELL VOLUME 111.1 FL (80.0-100.0); MEAN CORPUSCULAR HEMOGLOBIN 38.3 PG (27.0-34.0); MEAN CORPUSCULAR HGB CONC 34.5 % (32.0-36.0); MONO % 5.9 % (0.0-8.0); NEUT % 85.7 % (16.0-70.0); PLATELET COUNT 117 TH/MM3 (150-450); RED BLOOD COUNT 3.49 MIL/MM3 (4.00-5.30); RED CELL DISTRIBUTION WIDTH 17.4 % (11.6-17.2); WHITE BLOOD COUNT 8.7 TH/MM3 (4.0-11.0)
[2017-07-22 13:32] LABS: BACTERIA, URINE RARE /hpf; BLOOD, URINE TRACE (NEG); COMMENT (UR) CULT NOT INDICATED; CULTURE IF INDICATED CULT NOT INDICATED; GLUCOSE,URINE NEG (NEG); KETONE, URINE 150 mg/dL (NEG); MUCUS URINE FEW /lpf (OCC); NITRITE,URINE NEG (NEG); PH, URINE 6.5 (5.0-8.5); SQUAMOUS EPITHELIAL CELL URINE 1 /hpf (0-5); URINE COLOR DARK-YELLOW (YELLW/STRAW)
[2017-07-22 13:40] LABS: APTT (PATIENT) 29.7 SEC (24.3-30.1); INTERNATIONAL NORMALIZED RATIO 1.3 RATIO; PROTHROMBIN TIME - PATIENT 13.5 SEC (9.8-11.6)
[2017-07-22] MEDS ORDERED: MORPHINE SULFATE 2 MG/ML INJ IV PUSH ONE (14:00)
[2017-07-22] MEDS ORDERED: DICYCLOMINE HCL 20 MG/2 ML VIAL IM ONE (14:00)
[2017-07-22] MEDS ORDERED: SODIUM CHLOR 0.9% 1000 ML INJ 1,000 ML IV ONE ×2 (14:00)
[2017-07-22 14:05] LABS: ALKALINE PHOSPHATASE 351 U/L (45-117); ALT (GPT) 126 U/L (10-53); ANION GAP 21 MEQ/L (5-15); AST (GOT) 268 U/L (15-37); BLOOD UREA NITROGEN 9 MG/DL (7-18); CHLORIDE 101 MEQ/L (98-107); GLOMERULAR FILTRATION RATE 83 ML/MIN (>89); SODIUM (NA) 138 MEQ/L (136-145); TOTAL BILIRUBIN ADULT 4.2 MG/DL (0.2-1.0)
[2017-07-22 14:06] LABS: POTASSIUM 2.9 MEQ/L (3.5-5.1)
[2017-07-22] MEDS ORDERED: PROCHLORPERAZINE INJ 10 MG/2 ML VIAL IV PUSH ONE (14:15)
[2017-07-22] MEDS ORDERED: MAGNESIUM HYDROXIDE SUSP 30 ML CUP PO PRN (15:00)
[2017-07-22] MEDS ORDERED: LACTULOSE SYRUP 20 GM/30 ML CUP PO PRN (15:00)
[2017-07-22] MEDS ORDERED: NALOXONE HCL 0.4 MG/ML AMP IV PUSH PRN (15:00)
[2017-07-22] MEDS ORDERED: SENNOSIDES 8.6 MG TAB PO PRN (15:00)
[2017-07-22] MEDS ORDERED: TEMAZEPAM 15 MG CAP PO PRN (15:00)
[2017-07-22] MEDS ORDERED: BISACODYL 10 MG SUPP RECTAL PRN (15:00)
[2017-07-22] MEDS: POTASSIUM CHLOR 20 MEQ PREMIX 100 ML IV SCH ×2 (15:16→16:15)
--- NOTE | 2017-07-22 15:22 | PD ---
Data Data Last Documented VS Vital Signs Date Time Temp Pulse Resp B/P (MAP) Pulse Ox O2 Delivery O2 Flow Rate FiO2 07/22/17 14:43 96 24 133/63 (86) 99 Room Air 07/22/17 12:37 98.5 Orders Orders Complete Blood Count With Diff (07/22/17 12:34) Comprehensive Metabolic Panel (07/22/17 12:34) Lipase (07/22/17 12:34) Lactic Acid (07/22/17 12:34) Urinalysis - C+S If Indicated (07/22/17 12:34) Iv Access Insert/Monitor (07/22/17 12:34) Ecg Monitoring (07/22/17 12:34) Oximetry (07/22/17 12:34) Ondansetron Inj (Zofran Inj) (07/22/17 12:45) Pantoprazole Inj (Protonix Inj) (07/22/17 12:45) Sodium Chlor 0.9% 1000 Ml Inj (Ns 1000 M (07/22/17 12:34) Sodium Chloride 0.9% Flush (Ns Flush) (07/22/17 12:45) Diphenhydramine Inj (Benadryl Inj) (07/22/17 12:45) Act Partial Throm Time (Ptt) (07/22/17 12:37) Prothrombin Time / Inr (Pt) (07/22/17 12:37) Sodium Chlor 0.9% 1000 Ml Inj (Ns 1000 M (07/22/17 14:00) Sodium Chlor 0.9% 1000 Ml Inj (Ns 1000 M (07/22/17 14:00) Dicyclomine Inj (Bentyl Inj) (07/22/17 14:00) Lactic Acid (07/22/17 15:30) Morphine Inj (Morphine Inj) (07/22/17 14:00) Potassium Chlor 20 Meq Premix (Kcl 20 Me (07/22/17 14:15) Prochlorperazine Inj (Compazine Inj) (07/22/17 14:15) Admit Order (Ed Use Only) (07/22/17 14:56) Labs Laboratory Tests Test 07/22/17 12:55 07/22/17 13:05 Urine Color DARK-YELLOW Urine Turbidity CLEAR Urine pH 6.5 Urine Specific [place] 1.025 Urine Protein 100 mg/dL Urine Glucose (UA) NEG mg/dL Urine Ketones 150 mg/dL Urine Occult Blood TRACE Urine Nitrite NEG Urine Bilirubin SMALL Urine Urobilinogen 8.0 MG/DL Urine Leukocyte Esterase NEG Urine RBC 1 /hpf Urine WBC 2 /hpf Urine Squamous Epithelial Cells 1 /hpf Urine Bacteria RARE /hpf Urine Mucus FEW /lpf Microscopic Urinalysis Comment CULT NOT INDICATED White Blood Count 8.7 TH/MM3 Red Blood Count 3.49 MIL/MM3 Hemoglobin 13.4 GM/DL Hematocrit 38.7 % Mean Corpuscular Volume 111.1 FL Mean Corpuscular Hemoglobin 38.3 PG Mean Corpuscular Hemoglobin Concent 34.5 % Red Cell Distribution Width 17.4 % Platelet Count 117 TH/MM3 Mean Platelet Volume 9.4 FL Neutrophils (%) (Auto) 85.7 % Lymphocytes (%) (Auto) 7.8 % Monocytes (%) (Auto) 5.9 % Eosinophils (%) (Auto) 0.3 % Basophils (%) (Auto) 0.3 % Neutrophils # (Auto) 7.5 TH/MM3 Lymphocytes # (Auto) 0.7 TH/MM3 Monocytes # (Auto) 0.5 TH/MM3 Eosinophils # (Auto) 0.0 TH/MM3 Basophils # (Auto) 0.0 TH/MM3 CBC Comment DIFF FINAL Differential Comment Prothrombin Time 13.5 SEC Prothromb Time International Ratio 1.3 RATIO Activated Partial Thromboplast Time 29.7 SEC Blood Urea Nitrogen 9 MG/DL Creatinine 0.74 MG/DL Random Glucose 90 MG/DL Total Protein 8.5 GM/DL Albumin 3.7 GM/DL Calcium Level 9.0 MG/DL Alkaline Phosphatase 351 U/L Aspartate Amino Transf (AST/SGOT) 268 U/L Alanine Aminotransferase (ALT/SGPT) 126 U/L Total Bilirubin 4.2 MG/DL Sodium Level 138 MEQ/L Potassium Level 2.9 MEQ/L Chloride Level 101 MEQ/L Carbon Dioxide Level 16.0 MEQ/L Anion Gap 21 MEQ/L Estimat Glomerular Filtration Rate 83 ML/MIN Lactic Acid Level 5.5 mmol/L Lipase 120 U/L [facility] Supervised Visit with JOSE JUAN: Yes Narrative Course The history, exam, and medical decision-making in the associated mid-level provider note were completed with my assistance. I reviewed and agree with the findings presented. I attest that I had a [id number] encounter with the patient on the same day, and personally performed and documented my assessment and findings in the medical record. *My assessment and Findings: 52-year-old woman, recurrent episodes of intractable nausea vomiting associated with acute on chronic abdominal pain. On chronic opiates. Here with worsening nausea vomiting. Labs show hypokalemia and lactic acidosis. Still retching in the ED. Tolerating some ice cubes. Recommend observation. Diagnosis Primary Impression: Intractable nausea and vomiting Qualified Codes: R11.2 - Nausea with vomiting, unspecified Additional Impressions: Elevated lactic acid level Transaminitis Hypokalemia Condition: Stable Timothy Dodge MD Jul 22, 2017 15:22
[2017-07-22] MEDS ORDERED: LORazepam 1 MG TAB PO PRN (16:30)
[2017-07-22] MEDS ORDERED: FLUMAZENIL 0.5 MG/5 ML VIAL IV PUSH PRN (16:30)
--- NOTE | 2017-07-22 16:33 | HHI.HP ---
[facility] Primary Care Physician Jonny Love DO Admission Diagnosis intractable n/v, hypokalemia Diagnoses: Chief Complaint: Nausea and vomiting Travel History International Travel<30 Days: No Contact w/Intl Traveler <30 Da: No Past Family Social History Allergies: Coded Allergies: clarithromycin (Verified Allergy, Severe, VOMITING, DIARRHEA, 07/22/17) NSAIDS (Non-Steroidal Anti-Inflamma (Verified Adverse Reaction, Intermediate, Nausea/Vomiting, 07/22/17) metronidazole (Verified Adverse Reaction, Intermediate, Nausea/Vomiting, 07/22/17) Physical Exam Vital Signs Vital Signs Date Time Temp Pulse Resp B/P (MAP) Pulse Ox O2 Delivery O2 Flow Rate FiO2 07/22/17 15:55 (86) 07/22/17 14:43 96 24 133/63 (86) 99 Room Air 07/22/17 14:30 98 07/22/17 12:37 98.5 99 21 140/64 (89) 99 Physical Exam GENERAL: This is a well-nourished, well-developed patient, in no apparent distress. SKIN: No rashes, ecchymoses or lesions. Cool and dry. HEAD: Atraumatic. Normocephalic. No temporal or scalp tenderness. EYES: Pupils equal round and reactive. Extraocular motions intact. No scleral icterus. No injection or drainage. ENT: Nose without bleeding, purulent drainage or septal hematoma. Throat without erythema, tonsillar hypertrophy or exudate. Uvula midline. Airway patent. NECK: Trachea midline. No JVD or lymphadenopathy. Supple, nontender, no meningeal signs. CARDIOVASCULAR: Regular rate and rhythm without murmurs, gallops, or rubs. RESPIRATORY: Clear to auscultation. Breath sounds equal bilaterally. No wheezes , rales, or rhonchi. GASTROINTESTINAL: Abdomen soft, non-tender, nondistended. No hepato-splenomegaly , or palpable masses. No guarding. MUSCULOSKELETAL: Extremities without clubbing, cyanosis, or edema. No joint tenderness, effusion, or edema noted. No calf tenderness. Negative Homans sign bilaterally. NEUROLOGICAL: Awake and alert. Cranial nerves II through XII intact. Motor and sensory grossly within normal limits. Five out of 5 muscle strength in all muscle groups. Normal speech. Laboratory Laboratory Tests Test 07/22/17 12:55 07/22/17 13:05 07/22/17 15:25 Urine Color DARK-YELLOW Urine Turbidity CLEAR Urine pH 6.5 Urine Specific [place] 1.025 Urine Protein 100 Urine Glucose (UA) NEG Urine Ketones 150 Urine Occult Blood TRACE Urine Nitrite NEG Urine Bilirubin SMALL Urine Urobilinogen 8.0 Urine Leukocyte Esterase NEG Urine RBC 1 Urine WBC 2 Urine Squamous Epithelial Cells 1 Urine Bacteria RARE Urine Mucus FEW Microscopic Urinalysis Comment CULT NOT INDICATED White Blood Count 8.7 Red Blood Count 3.49 Hemoglobin 13.4 Hematocrit 38.7 Mean Corpuscular Volume 111.1 Mean Corpuscular Hemoglobin 38.3 Mean Corpuscular Hemoglobin Concent 34.5 Red Cell Distribution Width 17.4 Platelet Count 117 Mean Platelet Volume 9.4 Neutrophils (%) (Auto) 85.7 Lymphocytes (%) (Auto) 7.8 Monocytes (%) (Auto) 5.9 Eosinophils (%) (Auto) 0.3 Basophils (%) (Auto) 0.3 Neutrophils # (Auto) 7.5 Lymphocytes # (Auto) 0.7 Monocytes # (Auto) 0.5 Eosinophils # (Auto) 0.0 Basophils # (Auto) 0.0 CBC Comment DIFF FINAL Differential Comment Prothrombin Time 13.5 Prothromb Time International Ratio 1.3 Activated Partial Thromboplast Time 29.7 Blood Urea Nitrogen 9 Creatinine 0.74 Random Glucose 90 Total Protein 8.5 Albumin 3.7 Calcium Level 9.0 Alkaline Phosphatase 351 Aspartate Amino Transf (AST/SGOT) 268 Alanine Aminotransferase (ALT/SGPT) 126 Total Bilirubin 4.2 Sodium Level 138 Potassium Level 2.9 Chloride Level 101 Carbon Dioxide Level 16.0 Anion Gap 21 Estimat Glomerular Filtration Rate 83 Lactic Acid Level 5.5 4.7 Lipase 120 Result Diagram: 07/22/17 1305 07/22/17 1305 Caprini VTE Risk Assessment Caprini Risk Assessment Model Point Value = 1 Point Value = 2 Point Value = 3 Point Value = 5 Age 41-60 Minor surgery BMI > 25 kg/m2 Swollen legs Varicose veins or History of unexplained or recurrent spontaneous Oral contraceptives or hormone replacement Sepsis (< 1 month) Serious lung disease, including pneumonia (< 1 month) Abnormal pulmonary function Acute myocardial infarction Congestive heart failure (< 1 month) History of inflammatory bowel disease Medical patient at bed rest Age 61-74 Arthroscopic surgery Major open surgery (> 45 min) Laparoscopic surgery (> 45 min) Malignancy Confined to bed (> 72 hours) Immobilizing plaster cast Central venous access Age >= 75 History of VTE Family history of VTE Factor V Leiden Prothrombin [id number] Lupus anticoagulant Anticardiolipin antibodies Elevated serum homocysteine Heparin-induced thrombocytopenia Other congenital or acquired thrombophilia Stroke (< 1 month) Elective arthroplasty Hip, pelvis, or leg fracture Acute spinal cord injury (< 1 month) Prophylaxis Regimen Total Risk Factor Score Risk Level Prophylaxis Regimen 0-1 Low Early ambulation 2 Moderate Order ONE of the following: *Sequential Compression Device (SCD) *Heparin 5000 units SQ BID 3-4 Higher Order ONE of the following medications: *Heparin 5000 units SQ TID *Enoxaparin/Lovenox 40 mg SQ daily (WT < 150 kg, CrCl > 30 mL/min) *Enoxaparin/Lovenox 30 mg SQ daily (WT < 150 kg, CrCl > 10-29 mL/min) *Enoxaparin/Lovenox 30 mg SQ BID (WT < 150 kg, CrCl > 30 mL/min) AND/OR *Sequential Compression Device (SCD) 5 or more Highest Order ONE of the following medications: *Heparin 5000 units SQ TID (Preferred with Epidurals) *Enoxaparin/Lovenox 40 mg SQ daily (WT < 150 kg, CrCl > 30 mL/min) *Enoxaparin/Lovenox 30 mg SQ daily (WT < 150 kg, CrCl > 10-29 mL/min) *Enoxaparin/Lovenox 30 mg SQ BID (WT < 150 kg, CrCl > 30 mL/min) AND *Sequential Compression Device (SCD) Saad Scruggs MD Jul 22, 2017 16:33
[2017-07-22] MEDS ORDERED: levETIRAcetam INJ 100 ML IV ONE (16:45)
[2017-07-22] MEDS ORDERED: MIDAZOLAM HCL 2 MG/2 ML VIAL IV PUSH PRN (16:45)
[2017-07-22] MEDS: D5-1/2 NS + KCL 20 MEQ INJ 1,000 ML IV SCH (17:00)
[2017-07-22] MEDS ORDERED: clonazePAM 1 MG TAB PO PRN (17:15)
--- NOTE | 2017-07-22 17:16 | HHI.HP ---
[facility] Service [facility] Primary Care Physician Jonny Love DO Admission Diagnosis intractable n/v, hypokalemia Diagnoses: Chief Complaint: Nausea and vomiting. Seizure Travel History International Travel<30 Days: No Contact w/Intl Traveler <30 Da: No History of Present Illness 52-year-old female with a medical history significant for anxiety, gastritis/ duodenitis, chronic back pain on narcotics, hypothyroidism who initially presented to the emergency room with complaint of intractable nausea and vomiting that started at 4 AM. Patient was found to be hypokalemic with an elevated lactic acid. Initially was going to be admitted for observation. I evaluated the patient. She states she is feeling slightly better since arrival. She admits to drinking alcohol daily, 3-4 drinks. She states last drink was at 10 PM last night. She was very tremulous on my exam. Denies abdominal pain. About 10 minutes after I evaluated the patient, she had a generalized clonic tonic seizure witnessed by the nurse. I reevaluated the patient. She is postictal. Patient will be admitted to the ICU, loaded with Keppra and neurology consult. Review of Systems Constitutional: DENIES: Fever, Chills Respiratory: DENIES: Cough, Shortness of breath Cardiovascular: DENIES: Chest pain, Palpitations Gastrointestinal: COMPLAINS OF: Nausea, Vomiting, DENIES: Abdominal pain, Bloody stools, Diarrhea Genitourinary: DENIES: Dysuria Integumentary: DENIES: Rash Neurologic: COMPLAINS OF: Seizures, Tremor, DENIES: Headache, Localized weakness Past Family Social History Past Medical History Gastritis/duodenitis Anxiety Hypothyroidism Hyperlipidemia Severe hepatic steatosis Past Surgical History , Cholecystectomy, Hysterectomy, Tummy Tuck, Rhinoplasty, Breast Augmentation Reported Medications Reported Meds & Active Scripts Active Metoclopramide (Metoclopramide HCl) 10 Mg Tab 10 Mg PO TIDAC Oxycodone (Oxycodone HCl) 10 Mg Tab 10 Mg PO Q6H PRN Sulfamethoxazole-Trimethoprim 800-160 Mg Tab 1 Tab PO Q12HR Zofran (Ondansetron HCl) 8 Mg Tab 8 Mg PO BID PRN Clonazepam 1 Mg Tab 1 Mg PO BID PRN 7 Days Reported Levothyroxine (Levothyroxine Sodium) 50 Mcg Tab 50 Mcg PO DAILY Imitrex (Sumatriptan Succinate) 100 Mg Tab 100 Mg PO BID PRN If a satisfactory response has not been obtained at 2 hours, a second dose may be administered Valtrex (Valacyclovir HCl) 500 Mg Tab 500 Mg PO DAILY Effexor XR 24 HR (Venlafaxine HCl) 150 Mg Cap 150 PO DAILY Levsin-SL (Hyoscyamine Sulfate) 0.125 Mg Subl 0.125 Mg SL Q4H PRN Gemfibrozil 600 Mg Tab 600 Mg PO BID Take 30 minutes prior to breakfast and dinner. Lovaza (Optdv-2-Ubhu Ethyl Esters) 1 Gm Cap 2 Gm PO BID Allergies: Coded Allergies: clarithromycin (Verified Allergy, Severe, VOMITING, DIARRHEA, 07/22/17) NSAIDS (Non-Steroidal Anti-Inflamma (Verified Adverse Reaction, Intermediate, Nausea/Vomiting, 07/22/17) metronidazole (Verified Adverse Reaction, Intermediate, Nausea/Vomiting, 07/22/17) Family History Family history reviewed, found to be noncontributory. Social History The patient denies using tobacco. She admits to drinking alcohol daily. 3-4 mixed drinks. Not really forthcoming with her drinking behavior Denies illicit drug use Physical Exam Vital Signs Vital Signs Date Time Temp Pulse Resp B/P (MAP) Pulse Ox O2 Delivery O2 Flow Rate FiO2 07/22/17 15:55 (86) 07/22/17 14:43 96 24 133/63 (86) 99 Room Air 07/22/17 14:30 98 07/22/17 12:37 98.5 99 21 140/64 (89) 99 Physical Exam GENERAL: This is a well-nourished, well-developed patient. Very tremulous SKIN: No rashes, ecchymoses or lesions. Cool and dry. HEAD: Atraumatic. Normocephalic. No temporal or scalp tenderness. EYES: Pupils equal round and reactive. Extraocular motions intact. No scleral icterus. No injection or drainage. ENT: Nose without bleeding, purulent drainage or septal hematoma. Throat without erythema, tonsillar hypertrophy or exudate. Uvula midline. Airway patent. NECK: Trachea midline. No JVD or lymphadenopathy. Supple, nontender, no meningeal signs. CARDIOVASCULAR: Regular rate and rhythm without murmurs, gallops, or rubs. RESPIRATORY: Clear to auscultation. Breath sounds equal bilaterally. No wheezes , rales, or rhonchi. GASTROINTESTINAL: Abdomen soft, non-tender, nondistended. No hepato-splenomegaly , or palpable masses. No guarding. MUSCULOSKELETAL: Extremities without clubbing, cyanosis, or edema. No joint tenderness, effusion, or edema noted. No calf tenderness. Negative Homans sign bilaterally. NEUROLOGICAL: Awake and alert. Cranial nerves II through XII intact. Motor and sensory grossly within normal limits. Five out of 5 muscle strength in all muscle groups. Normal speech. Patient was postictal with confusion after the seizure. Laboratory Laboratory Tests Test 07/22/17 12:55 07/22/17 13:05 07/22/17 15:25 Urine Color DARK-YELLOW Urine Turbidity CLEAR Urine pH 6.5 Urine Specific [place] 1.025 Urine Protein 100 Urine Glucose (UA) NEG Urine Ketones 150 Urine Occult Blood TRACE Urine Nitrite NEG Urine Bilirubin SMALL Urine Urobilinogen 8.0 Urine Leukocyte Esterase NEG Urine RBC 1 Urine WBC 2 Urine Squamous Epithelial Cells 1 Urine Bacteria RARE Urine Mucus FEW Microscopic Urinalysis Comment CULT NOT INDICATED Urine Opiates Screen POS Urine Barbiturates Screen NEG Urine Amphetamines Screen NEG Urine Benzodiazepines Screen NEG Urine Cocaine Screen NEG Urine Cannabinoids Screen NEG White Blood Count 8.7 Red Blood Count 3.49 Hemoglobin 13.4 Hematocrit 38.7 Mean Corpuscular Volume 111.1 Mean Corpuscular Hemoglobin 38.3 Mean Corpuscular Hemoglobin Concent 34.5 Red Cell Distribution Width 17.4 Platelet Count 117 Mean Platelet Volume 9.4 Neutrophils (%) (Auto) 85.7 Lymphocytes (%) (Auto) 7.8 Monocytes (%) (Auto) 5.9 Eosinophils (%) (Auto) 0.3 Basophils (%) (Auto) 0.3 Neutrophils # (Auto) 7.5 Lymphocytes # (Auto) 0.7 Monocytes # (Auto) 0.5 Eosinophils # (Auto) 0.0 Basophils # (Auto) 0.0 CBC Comment DIFF FINAL Differential Comment Prothrombin Time 13.5 Prothromb Time International Ratio 1.3 Activated Partial Thromboplast Time 29.7 Blood Urea Nitrogen 9 Creatinine 0.74 Random Glucose 90 Total Protein 8.5 Albumin 3.7 Calcium Level 9.0 Alkaline Phosphatase 351 Aspartate Amino Transf (AST/SGOT) 268 Alanine Aminotransferase (ALT/SGPT) 126 Total Bilirubin 4.2 Sodium Level 138 Potassium Level 2.9 Chloride Level 101 Carbon Dioxide Level 16.0 Anion Gap 21 Estimat Glomerular Filtration Rate 83 Lactic Acid Level 5.5 4.7 Lipase 120 Result Diagram: 07/22/17 1305 07/22/17 1305 Caprini VTE Risk Assessment Caprini VTE Risk Assessment: Mod/High Risk (score >= 2) VTE Pharm Contraindication: High risk for bleeding Caprini Risk Assessment Model Point Value = 1 Point Value = 2 Point Value = 3 Point Value = 5 Age 41-60 Minor surgery BMI > 25 kg/m2 Swollen legs Varicose veins or History of unexplained or recurrent spontaneous Oral contraceptives or hormone replacement Sepsis (< 1 month) Serious lung disease, including pneumonia (< 1 month) Abnormal pulmonary function Acute myocardial infarction Congestive heart failure (< 1 month) History of inflammatory bowel disease Medical patient at bed rest Age 61-74 Arthroscopic surgery Major open surgery (> 45 min) Laparoscopic surgery (> 45 min) Malignancy Confined to bed (> 72 hours) Immobilizing plaster cast Central venous access Age >= 75 History of VTE Family history of VTE Factor V Leiden Prothrombin [id number] Lupus anticoagulant Anticardiolipin antibodies Elevated serum homocysteine Heparin-induced thrombocytopenia Other congenital or acquired thrombophilia Stroke (< 1 month) Elective arthroplasty Hip, pelvis, or leg fracture Acute spinal cord injury (< 1 month) Prophylaxis Regimen Total Risk Factor Score Risk Level Prophylaxis Regimen 0-1 Low Early ambulation 2 Moderate Order ONE of the following: *Sequential Compression Device (SCD) *Heparin 5000 units SQ BID 3-4 Higher Order ONE of the following medications: *Heparin 5000 units SQ TID *Enoxaparin/Lovenox 40 mg SQ daily (WT < 150 kg, CrCl > 30 mL/min) *Enoxaparin/Lovenox 30 mg SQ daily (WT < 150 kg, CrCl > 10-29 mL/min) *Enoxaparin/Lovenox 30 mg SQ BID (WT < 150 kg, CrCl > 30 mL/min) AND/OR *Sequential Compression Device (SCD) 5 or more Highest Order ONE of the following medications: *Heparin 5000 units SQ TID (Preferred with Epidurals) *Enoxaparin/Lovenox 40 mg SQ daily (WT < 150 kg, CrCl > 30 mL/min) *Enoxaparin/Lovenox 30 mg SQ daily (WT < 150 kg, CrCl > 10-29 mL/min) *Enoxaparin/Lovenox 30 mg SQ BID (WT < 150 kg, CrCl > 30 mL/min) AND *Sequential Compression Device (SCD) Assessment and Plan Problem List: (1) Alcohol abuse ICD Code: F10.10 - Alcohol abuse, uncomplicated (2) Intractable nausea and vomiting ICD Code: R11.2 - Nausea with vomiting, unspecified Status: Acute (3) Elevated lactic acid level ICD Code: R79.89 - Other specified abnormal findings of blood chemistry Status: Acute (4) Seizure ICD Code: R56.9 - Unspecified convulsions (5) Anxiety ICD Code: F41.9 - Anxiety disorder, unspecified Status: Acute (6) Gastritis and duodenitis ICD Code: K29.90 - Gastroduodenitis, unspecified, without bleeding Assessment and Plan 52-year-old female with history significant for duodenitis/gastritis initially presented for intractable nausea and vomiting. The patient admitted to abusing alcohol. Drinking at least 3-4 drinks a day. She had a witnessed generalized seizure in the observation unit. She has severe hypokalemia and elevated lactic acid. Patient will be admitted to the ICU for treatment. Likely alcohol withdrawal seizure, early DTs. Seizures: No reported history of seizures. Likely alcohol withdrawal seizure. Witnessed seizure in the observation pot. [facility] called. - Regular IV Ativan not available. Midazolam ordered, which can be used in the ICU. - Seizure precautions - Patient loaded with Keppra. - Neurology consulted. Further plans per neurology. Alcohol abuse/withdrawal: Patient very tremulous. Daily drinker. - [facility] protocol. - Rally pack - I strongly counseled the patient to stop drinking alcohol. She stated she will think about it. Hypokalemia: - Continue replacement. Follow up BMP later today. Elevated lactic acid: Likely secondary to vomiting. - Trending down. Continue to trend Known gastritis/duodenitis, Intractable nausea and vomiting: Likely secondary to continuous alcohol abuse. Patient had endoscopy about a month and a half ago. - Antiemetics as needed. - IV fluid - PPI Anxiety Resume home dose clonazepam Hypothyroidism: - Resume Synthroid. Check TSH GI prophylaxis: PPI. Stool softener PRN constipation. DVT PPx: SCDs Discussed Condition With ED staff, nurse Physician Certification 2 Midnight Certification Type: Admission for Inpatient Services Order for Inpatient Services The services are ordered in accordance with Medicare regulations or non- Medicare payer requirements, as applicable. In the case of services not specified as inpatient-only, they are appropriately provided as inpatient services in accordance with the 2-midnight benchmark. Estimated LOS (days): 3 days is the estimated time the patient will need to remain in the hospital, assuming treatment plan goals are met and no additional complications. Post-Hospital Plan: Home Problem Qualifiers (1) Intractable nausea and vomiting: Qualified Codes: R11.2 - Nausea with vomiting, unspecified Saad Scruggs MD Jul 22, 2017 17:16
[2017-07-22] MEDS: THIAMINE INJ 100 MG in SODIUM CHLORIDE 0.9% INJ 100 ML IV SCH (17:56)
[2017-07-22] MEDS: PANTOPRAZOLE SODIUM 40 MG VIAL IV PUSH SCH (17:56)
[2017-07-22] MEDS: ONDANSETRON HCL 4 MG/2 ML VIAL IVP PRN (19:46)
[2017-07-22] MEDS: LORazepam 2 MG TAB PO PRN ×2 (19:47→21:51)
[2017-07-22] MEDS: SODIUM CHLORIDE 0.9% FLUSH 10 ML FLUSH IV FLUSH SCH (21:00)
[2017-07-22] MEDS ORDERED: SODIUM CHLORIDE 0.9% FLUSH 10 ML FLUSH IV FLUSH SCH (21:00)
[2017-07-22 21:16] LABS: BICARBONATE 13.8 MEQ/L (21.0-32.0)
[2017-07-22 21:19] LABS: POTASSIUM 4.9 MEQ/L (3.5-5.1)
[2017-07-23] VITALS (9 sets, daily range): BP systolic 112–129; BP diastolic 58–71; PULSE 89–110; RESP 18–27; TEMP 98–98.9; O2SAT 92–99
[2017-07-23 02:58] LABS: ALKALINE PHOSPHATASE 278 U/L (45-117); ALT (GPT) 102 U/L (10-53); ANION GAP 12 MEQ/L (5-15); AST (GOT) 233 U/L (15-37); BICARBONATE 20.4 MEQ/L (21.0-32.0); BLOOD UREA NITROGEN 6 MG/DL (7-18); CHLORIDE 106 MEQ/L (98-107); GLOMERULAR FILTRATION RATE 88 ML/MIN (>89); POTASSIUM 3.2 MEQ/L (3.5-5.1); SODIUM (NA) 138 MEQ/L (136-145); TOTAL BILIRUBIN ADULT 4.8 MG/DL (0.2-1.0)
[2017-07-23] MEDS: LORazepam 2 MG TAB PO PRN (03:20)
[2017-07-23] MEDS: ONDANSETRON HCL 4 MG/2 ML VIAL IVP PRN ×2 (03:20→14:01)
[2017-07-23] MEDS: D5-1/2 NS + KCL 20 MEQ INJ 1,000 ML IV SCH ×2 (03:28→12:35)
[2017-07-23] MEDS: PANTOPRAZOLE SODIUM 40 MG VIAL IV PUSH SCH ×2 (05:57→18:10)
[2017-07-23] MEDS: LEVOTHYROXINE SODIUM 50 MCG TAB PO SCH (05:57)
[2017-07-23] MEDS: SODIUM CHLORIDE 0.9% FLUSH 10 ML FLUSH IV FLUSH SCH (08:51)
[2017-07-23] MEDS: levETIRAcetam 500 MG TAB PO SCH ×2 (08:52→21:13)
[2017-07-23] MEDS: MULTIVITAMIN TAB PO SCH (08:52)
[2017-07-23] MEDS: FOLIC ACID 1 MG TAB PO SCH (08:52)
[2017-07-23] MEDS: THIAMINE INJ 100 MG in SODIUM CHLORIDE 0.9% INJ 100 ML IV SCH (08:57)
[2017-07-23] MEDS ORDERED: POTASSIUM CHLORIDE 10 MEQ CONTROLLED RELEASE TAB PO ONE (09:00)
--- NOTE | 2017-07-23 10:01 | HHI.PR ---
Objective Vitals Vital Signs Date Time Temp Pulse Resp B/P (MAP) Pulse Ox O2 Delivery O2 Flow Rate FiO2 07/23/17 06:00 108 07/23/17 04:00 99 07/23/17 04:00 98.7 104 27 119/61 (80) 92 07/23/17 02:00 89 07/23/17 00:00 98.9 109 20 120/63 (82) 93 07/23/17 00:00 97 07/22/17 22:00 96 07/22/17 20:00 111 07/22/17 20:00 98.2 104 25 131/61 (84) 93 07/22/17 20:00 98 Room Air 07/22/17 18:00 97 Room Air 07/22/17 17:00 98.3 100 18 141/75 (97) 96 07/22/17 16:30 115 20 178/86 (116) 94 07/22/17 15:55 (86) 07/22/17 14:43 96 24 133/63 (86) 99 Room Air 07/22/17 14:30 98 07/22/17 14:30 97 Nasal Cannula 2.00 07/22/17 14:30 97 2.00 07/22/17 12:37 98.5 99 21 140/64 (89) 99 I/O 07/22/17 07/22/17 07/22/17 07/23/17 07/23/17 07/23/17 07:00 15:00 23:00 07:00 15:00 23:00 Intake Total 2000 ml 1200 ml Output Total 1000 ml Balance 2000 ml 200 ml Intake IV Total 2000 ml 1200 ml Output Urine Total 1000 ml # Voids 3 Result Diagram: 07/22/17 1305 07/23/17 0218 A/P Problem List: (1) Alcohol abuse ICD Code: F10.10 - Alcohol abuse, uncomplicated (2) Intractable nausea and vomiting ICD Code: R11.2 - Nausea with vomiting, unspecified Status: Acute (3) Elevated lactic acid level ICD Code: R79.89 - Other specified abnormal findings of blood chemistry Status: Acute (4) Seizure ICD Code: R56.9 - Unspecified convulsions (5) Anxiety ICD Code: F41.9 - Anxiety disorder, unspecified Status: Acute (6) Gastritis and duodenitis ICD Code: K29.90 - Gastroduodenitis, unspecified, without bleeding Problem Qualifiers (1) Intractable nausea and vomiting: Qualified Codes: R11.2 - Nausea with vomiting, unspecified Saad Scruggs MD Jul 23, 2017 10:01
--- NOTE | 2017-07-23 10:13 | HHI.PR ---
Subjective Remarks Patient reports that she is sore all over. No further seizures. Objective Vitals Vital Signs Date Time Temp Pulse Resp B/P (MAP) Pulse Ox O2 Delivery O2 Flow Rate FiO2 07/23/17 06:00 108 07/23/17 04:00 99 07/23/17 04:00 98.7 104 27 119/61 (80) 92 07/23/17 02:00 89 07/23/17 00:00 98.9 109 20 120/63 (82) 93 07/23/17 00:00 97 07/22/17 22:00 96 07/22/17 20:00 111 07/22/17 20:00 98.2 104 25 131/61 (84) 93 07/22/17 20:00 98 Room Air 07/22/17 18:00 97 Room Air 07/22/17 17:00 98.3 100 18 141/75 (97) 96 07/22/17 16:30 115 20 178/86 (116) 94 07/22/17 15:55 (86) 07/22/17 14:43 96 24 133/63 (86) 99 Room Air 07/22/17 14:30 98 07/22/17 14:30 97 Nasal Cannula 2.00 07/22/17 14:30 97 2.00 07/22/17 12:37 98.5 99 21 140/64 (89) 99 I/O 07/22/17 07/22/17 07/22/17 07/23/17 07/23/17 07/23/17 07:00 15:00 23:00 07:00 15:00 23:00 Intake Total 2000 ml 1200 ml Output Total 1000 ml Balance 2000 ml 200 ml Intake IV Total 2000 ml 1200 ml Output Urine Total 1000 ml # Voids 3 Result Diagram: 07/22/17 1305 07/23/17 0218 Objective Remarks GENERAL: This is a well-nourished, well-developed patient, in no apparent distress. CARDIOVASCULAR: Normal rate and regular rhythm without murmurs, gallops, or rubs. RESPIRATORY: Good respiratory efforts. Breath sounds equal and clear to auscultation bilaterally. GASTROINTESTINAL: Abdomen soft, non-tender, non-distended. Normal active bowel sounds MUSCULOSKELETAL: Reports pain all diffusely over her back. NEURO: Alert & Oriented x4 to person, place, time, situation. Moves all ext x4 PSYCH: Appropriate mood and affect. A/P Problem List: (1) Alcohol abuse ICD Code: F10.10 - Alcohol abuse, uncomplicated (2) Intractable nausea and vomiting ICD Code: R11.2 - Nausea with vomiting, unspecified Status: Acute (3) Elevated lactic acid level ICD Code: R79.89 - Other specified abnormal findings of blood chemistry Status: Acute (4) Seizure ICD Code: R56.9 - Unspecified convulsions (5) Anxiety ICD Code: F41.9 - Anxiety disorder, unspecified Status: Acute (6) Gastritis and duodenitis ICD Code: K29.90 - Gastroduodenitis, unspecified, without bleeding Assessment and Plan 52-year-old female with history significant for duodenitis/gastritis initially presented for intractable nausea and vomiting. The patient admitted to abusing alcohol. Drinking at least 3-4 drinks a day. She had a witnessed generalized seizure in the observation unit. She has severe hypokalemia and elevated lactic acid on presentation. Seizures: No reported history of seizures. Likely alcohol withdrawal seizure. Alcohol level 146. Witnessed seizure in the observation pod. [facility] called. - No further seizures overnight.. - Continue Seizure precautions. EEG - Patient loaded with Keppra. Continue Keppra. - Neurology consulted. Further plans per neurology. Alcohol abuse/withdrawal: Patient very tremulous. Daily drinker. - [facility] protocol. - Rally pack - I strongly counseled the patient to stop drinking alcohol. She seems to be in denial about the effects of alcohol on her health. Hypokalemia: -Replace and monitor Elevated lactic acid: Likely secondary to vomiting. -Trended down and Normalized. Known gastritis/duodenitis, Intractable nausea and vomiting: Likely secondary to continuous alcohol abuse. Patient had endoscopy about a month and a half ago. - Antiemetics as needed. - IV fluid - PPI - Start diet. Elevated LFT's: Patient has known severe hepatic steatosis. Alcoholic hepatitis likely contributing as well. - Continue to trend. Anxiety Resume home dose clonazepam Chronic back pain: Chronically on oxycodone. Made worse with seizure. - Continue oxycodone as needed. Hypothyroidism: - Resume Synthroid. Check TSH GI prophylaxis: PPI. Stool softener PRN constipation. DVT PPx: Heparin Discharge Planning Transfer to floor. Problem Qualifiers (1) Intractable nausea and vomiting: Qualified Codes: R11.2 - Nausea with vomiting, unspecified Saad Scruggs MD Jul 23, 2017 10:13
[2017-07-23] MEDS: HEPARIN SODIUM - SQ 10,000 UNITS/ML VIAL SQ SCH (11:00)
--- NOTE | 2017-07-23 16:29 | MB ---
cc: PELON BASILIO M.D. DATE OF CONSULTATION: 07/23/2017 REASON FOR CONSULTATION Seizure. HISTORY OF PRESENT ILLNESS Ms. Dhillon is a 52-year-old female admitted with severe nausea and vomiting. Yesterday she had a generalized tonic-clonic seizure and has been started on Keppra. She has had no seizures since. She denies any past history of seizures. She does have history of daily alcohol intake. PAST MEDICAL HISTORY 1. History of anxiety. 2. Gastritis. 3. Duodenitis. 4. Hypothyroidism. 5. Hyperlipidemia. 6. Hepatic steatosis. 7. . 8. Cholecystectomy. 9. Hysterectomy. 10. Rhinoplasty. 11. Breast augmentation surgery. MEDICATION Medicines at home: 1. She takes oxycodone. 2. Metoclopramide. 3. Sulfamethoxazole. 4. Zofran. 5. Clonazepam. 6. Levothyroxine. 7. Imitrex as needed. 8. Valtrex. 9. Effexor. 10. Levsin. 11. Gemfibrozil. 12. Lovaza. ALLERGIES CLARITHROMYCIN, NSAIDs, FLAGYL. NEUROLOGIC EXAMINATION VITAL SIGNS: Blood pressure is 129/71, pulse is 104, respirations 25, temperature 98 degrees. Higher cortical function, she is alert, oriented. Speech is normal. She follows commands. Cranial nerves are intact. Motor exam is normal with no focal deficit. Reflexes symmetric. IMAGING STUDIES CT of the brain is within normal limits, no acute change present, there is mild bilateral frontal atrophy. LABORATORY DATA White count is 8700, hemoglobin 13.4, hematocrit 38%, platelet count 117,000. Sodium is 138, potassium 3.2, chloride 106, C02 20. The BUN is 6, creatinine 0.7, GFR is 88, glucose 100, AST 233, ALT 102, alk phos 278, total protein 6.9, PT 13.5, INR 1.3, APTT 29.7. Tox screen, alcohol level 141. IMPRESSION Seizure probably related to alcohol use. RECOMMENDATIONS I would like to get an MRI of the brain as well as an EEG. Also recommend thiamine IV. If the above studies are unremarkable, I do not feel that she requires long-term anticonvulsant therapy. She should abstain from alcohol consumption. I also recommend no driving for at least 6 months of being seizure-free. MD JOHN Hernandez /3:43 PM /3:50 PM
[2017-07-23] MEDS ORDERED: PHENOL 1.4% SOLN 180 ML BTL OROPHARYNG PRN (19:00)
[2017-07-24] MEDS: HEPARIN SODIUM - SQ 10,000 UNITS/ML VIAL SQ SCH ×3 (00:25→22:31)
[2017-07-24] MEDS: ONDANSETRON HCL 4 MG/2 ML VIAL IVP PRN ×4 (00:27→18:25)
[2017-07-24 00:29] VITALS: BP 135/59; PULSE 94; RESP 19; TEMP 98.4; O2SAT 95
[2017-07-24] MEDS: SODIUM CHLORIDE 0.9% FLUSH 10 ML FLUSH IV FLUSH SCH ×3 (00:37→22:31)
[2017-07-24] MEDS: D5-1/2 NS + KCL 20 MEQ INJ 1,000 ML IV SCH ×4 (00:37→09:47)
[2017-07-24 05:00] VITALS: BP 108/55; PULSE 93; RESP 18; TEMP 98; O2SAT 95
--- NOTE | 2017-07-24 05:13 | MG ---
cc: MICK SANDY MD Lab No: [id number] Date: 07/23/2017 Age: 52 Sex: F Race: DATE OF 1965 INDICATIONS FOR PROCEDURE A 52-year-old with history of seizures, head trauma, tremors. FINDINGS Increased beta alpha frequencies in the background 8-13 Hz, 10-30 microvolts. Frequent movement. Frontal myogenic artifact noted. Good driving with photic stimulation. Single lead EKG showing sinus rhythm. INTERPRETATION Normal awake EEG with significantly increased beta frequencies, likely psychotropic medication effect. Clinical correlation. Mick Sandy MD MG/SSB /9:06 PM /5:06 AM
[2017-07-24] MEDS: LEVOTHYROXINE SODIUM 50 MCG TAB PO SCH (05:52)
[2017-07-24] MEDS: PANTOPRAZOLE SODIUM 40 MG VIAL IV PUSH SCH ×2 (05:53→18:25)
[2017-07-24 08:18] VITALS: BP 121/59; PULSE 94; RESP 20; TEMP 97.8; O2SAT 96
[2017-07-24 08:44] LABS: BICARBONATE 23.1 MEQ/L (21.0-32.0); INDIRECT BILIRUBIN 1.9 MG/DL (0.0-0.8); POTASSIUM 3.1 MEQ/L (3.5-5.1); TOTAL BILIRUBIN ADULT 5.7 MG/DL (0.2-1.0)
[2017-07-24] MEDS: levETIRAcetam 500 MG TAB PO SCH (09:23)
[2017-07-24] MEDS: MULTIVITAMIN TAB PO SCH (09:24)
[2017-07-24] MEDS: FOLIC ACID 1 MG TAB PO SCH (09:24)
[2017-07-24] MEDS: THIAMINE INJ 100 MG in SODIUM CHLORIDE 0.9% INJ 100 ML IV SCH (09:46)
[2017-07-24 12:25] VITALS: BP 111/65; PULSE 108; RESP 20; TEMP 98.5; O2SAT 98
[2017-07-24] MEDS ORDERED: GADODIAMIDE PF 287 MG/ML 5 ML VIAL (for RAD MRI) IV PUSH ONE (15:36)
--- NOTE | 2017-07-24 15:59 | RADRPT ---
EXAM DATE/TIME: 07/24/2017 15:24 [facility] COMPARISON: No previous studies available for comparison. INDICATIONS : Seizures. CONTRAST: 12 cc Omniscan (gadodiamide) IV MEDICAL HISTORY : Hypertension. SURGICAL HISTORY : Cholecystectomy. Tubal ligation. Hysterectomy. Rhinoplasty. Breast augmentation. ENCOUNTER: Initial ACUITY: 1 day PAIN SCORE: 3/10 LOCATION: cranial TECHNIQUE: Multiplanar, multisequence MRI of the brain was performed both prior to and following the administrat ion of paramagnetic contrast. FINDINGS: CEREBRUM: The ventricles are normal for age. No evidence of midline shift, mass lesion, hemorrhage or acute in farction. No extraaxial fluid collections are seen. The pituitary gland and suprasellar cistern are normal in configuration. WHITE MATTER: No significant signal abnormalities are seen in the white matter. POSTERIOR FOSSA: The cerebellum and brainstem are intact. The 4th ventricle is midline. The cerebellopontine angle is unremarkable. The cerebellar tonsils are normal in position. DIFFUSION IMAGING: No focal areas of restricted diffusion are seen. No evidence of acute infarction. EXTRACRANIAL: The visualized portions of the orbits and paranasal sinuses are unremarkable. POST-CONTRAST: No abnormal areas of parenchymal or dural enhancement. No evidence of blood-brain barrier breakdown. CONCLUSION: Normal examination. Timothy Mon MD on July 24, 2017 at 15:57 Board Certified Radiologist. This report was verified electronically.
[2017-07-24 16:00] VITALS: BP 112/57; PULSE 99; RESP 20; TEMP 98.6; O2SAT 98
--- NOTE | 2017-07-24 18:31 | HHI.PR ---
Subjective Remarks Pt says her nausea is under decent control here, much better than it was at home on similar meds. She feels the nausea may be related to mold in her condo. Her fiance gets sporadically nauseas too. We discussed foods and medications, but that doesn't seem to fall into any pattern. Objective Vital Signs Date Time Temp Pulse Resp B/P (MAP) Pulse Ox O2 Delivery O2 Flow Rate FiO2 07/24/17 16:00 98.6 99 20 112/57 (75) 98 07/24/17 12:25 98.5 108 20 111/65 (80) 98 07/24/17 08:18 97.8 94 20 121/59 (79) 96 07/24/17 07:32 18 07/24/17 05:00 98.0 93 18 108/55 (72) 95 07/24/17 00:29 98.4 94 19 135/59 (84) 95 07/23/17 21:13 Room Air 07/23/17 20:48 98.0 110 19 125/58 (80) 96 I/O 07/23/17 07/23/17 07/23/17 07/24/17 07/24/17 07/24/17 07:00 15:00 23:00 07:00 15:00 23:00 Intake Total 1200 ml 900 ml 240 ml 1467 ml Output Total 1000 ml Balance 200 ml 900 ml 240 ml 1467 ml Intake Oral 900 ml 240 ml 480 ml IV Total 1200 ml 987 ml Output Urine Total 1000 ml # Voids 3 2 3 3 Result Diagram: 07/22/17 1305 07/24/17 0735 Imaging Last Impressions Brain MRI 07/24/17 0000 Signed Impressions: Service Date/Time: Monday, July 24, 2017 15:24 - CONCLUSION: Normal examination. Timothy Mon MD Objective Remarks GENERAL: Well-nourished, well-developed patient, anxious. SKIN: Warm and dry. HEAD: Normocephalic. EYES: No scleral icterus. No injection or drainage. NECK: Supple, trachea midline. No JVD or lymphadenopathy. CARDIOVASCULAR: Regular rate and rhythm without murmurs, gallops, or rubs. RESPIRATORY: Breath sounds equal bilaterally. No accessory muscle use. GASTROINTESTINAL: Abdomen soft, tender (muscular), not distended MUSCULOSKELETAL: No cyanosis, or edema. BACK: Nontender without obvious deformity. No CVA tenderness. EXTREMITIES: no edema Assessment and Plan Problem List: (1) Seizure ICD Codes: R56.9 - Unspecified convulsions (2) Intractable nausea and vomiting ICD Codes: R11.2 - Nausea with vomiting, unspecified Status: Acute (3) Hypokalemia ICD Codes: E87.6 - Hypokalemia Status: Acute Assessment and Plan Seizure - most likely from alcohol abuse according to neurology - seizure precautions Intractable Nausea/Vomiting - better controlled here - encourage progression of diet Hypokalemia - low but stable (vomiting), taking in more PO today - recheck in AM and treat if still low. DVT Prophylaxis - Heparin Problem Qualifiers (1) Intractable nausea and vomiting: Qualified Codes: R11.2 - Nausea with vomiting, unspecified Howard Torres MD Jul 24, 2017 18:31
[2017-07-24 20:00] VITALS: BP 120/60; PULSE 98; RESP 18; TEMP 97.7; O2SAT 100
--- NOTE | 2017-07-24 22:29 | HHI.PR ---
Review/Management Diagnosis seizure--likely related to ETOH Plan stop keppra abstain from etoh No driving 6 months Diagnosis/Plan: Subjective Subjective Comments No acute events reported No headache No seizures Active Medications Current Medications Medications (Trade) Dose Ordered Sig/Glenis Route Start Time Stop Time Status Last Admin Potassium Chloride/Dextrose/ Sod Cl 1,000 ml @ 100 mls/hr Q10H IV 07/22/17 17:00 07/24/17 09:00 (Zofran Inj) 4 mg Q6H PRN IVP 07/22/17 15:00 07/24/17 18:25 (Restoril) 15 mg HS PRN PO 07/22/17 15:00 (Narcan Inj) 0.4 mg UNSCH PRN IV PUSH 07/22/17 15:00 (Milk Of Magnesia Liq) 30 ml Q12H PRN PO 07/22/17 15:00 (Senokot) 17.2 mg Q12H PRN PO 07/22/17 15:00 (Dulcolax Supp) 10 mg DAILY PRN RECTAL 07/22/17 15:00 (Lactulose Liq) 30 ml DAILY PRN PO 07/22/17 15:00 (Romazicon Inj) 0.2 mg Q1M PRN IV PUSH 07/22/17 16:30 (Ativan) 1 mg Q4H PRN PO 07/22/17 16:30 07/24/17 19:51 (Ativan) 2 mg Q2H PRN PO 07/22/17 16:30 07/23/17 03:20 (Protonix Inj) 40 mg Q12H IV PUSH 07/22/17 18:00 07/24/17 18:25 (NS Flush) 2 ml UNSCH PRN IV FLUSH 07/22/17 16:45 (NS Flush) 2 ml BID IV FLUSH 07/22/17 21:00 07/24/17 09:24 (Keppra) 500 mg Q12HR PO 07/23/17 09:00 07/24/17 09:23 (Versed Inj) 2 mg ONCE PRN IV PUSH 07/22/17 16:45 08/01/17 16:44 Thiamine HCl 100 mg/Sodium Chloride 101 ml @ 101 mls/hr DAILY IV 07/22/17 18:00 07/24/17 09:46 (Folate) 1 mg DAILY PO 07/23/17 09:00 07/24/17 09:24 (Theragran) 1 tab DAILY PO 07/23/17 09:00 07/24/17 09:24 (KlonoPIN) 1 mg BID PRN PO 07/22/17 17:15 (Synthroid) 50 mcg DAILY@0600 PO 07/23/17 06:00 07/24/17 05:52 (Heparin Inj) 5,000 units Q12H SQ 07/23/17 11:00 07/24/17 11:56 (Roxicodone) 5 mg Q6H PRN PO 07/23/17 10:30 07/24/17 18:26 (Chloraseptic [place]) 1 spray QID PRN OROPHARYNG 07/23/17 19:00 07/23/17 21:12 Allergies Allergies Coded Allergies clarithromycin (Verified Allergy, Severe, VOMITING, DIARRHEA, 07/22/17) NSAIDS (Non-Steroidal Anti-Inflamma (Verified Adverse Reaction, Intermediate, Nausea/Vomiting, 07/22/17) metronidazole (Verified Adverse Reaction, Intermediate, Nausea/Vomiting, 07/22) Exam I&O / VS 07/24/17 07/24/17 07/25/17 15:00 23:00 07:00 Intake Total 1467 ml Balance 1467 ml Intake Oral 480 ml IV Total 987 ml # Voids 3 Vital Signs Date Time Temp Pulse Resp B/P (MAP) Pulse Ox O2 Delivery O2 Flow Rate FiO2 07/24/17 20:00 97.7 98 18 120/60 (80) 100 07/24/17 16:00 98.6 99 20 112/57 (75) 98 07/24/17 12:25 98.5 108 20 111/65 (80) 98 07/24/17 08:18 97.8 94 20 121/59 (79) 96 07/24/17 07:32 18 07/24/17 05:00 98.0 93 18 108/55 (72) 95 07/24/17 00:29 98.4 94 19 135/59 (84) 95 Exam Comments alert, oriented, speech normal CN normal MOTOR 5/5 BUE and BLE Objective Radiology Results MRI brain normal Micro and Labs Laboratory Tests Test 07/24/17 07:35 Blood Urea Nitrogen 2 Creatinine 0.77 Random Glucose 90 Total Protein 7.6 Albumin 3.4 Calcium Level 8.7 Alkaline Phosphatase 287 Aspartate Amino Transf (AST/SGOT) 295 Alanine Aminotransferase (ALT/SGPT) 118 Total Bilirubin 5.7 Direct Bilirubin 3.8 Sodium Level 136 Potassium Level 3.1 Chloride Level 104 Carbon Dioxide Level 23.1 Anion Gap 9 Estimat Glomerular Filtration Rate 79 Indirect Bilirubin 1.9 Diagnostic Tests EEG----no epileptiform activity, normal study Raoul Alegria PhD Jul 24, 2017 22:29
[2017-07-25] VITALS: BP 109/54; PULSE 68; RESP 20; TEMP 98.1; O2SAT 97
[2017-07-25] MEDS: D5-1/2 NS + KCL 20 MEQ INJ 1,000 ML IV SCH ×2 (01:06→09:00)
[2017-07-25] MEDS: ONDANSETRON HCL 4 MG/2 ML VIAL IVP PRN ×3 (01:06→14:06)
[2017-07-25 04:00] VITALS: BP 108/58; PULSE 100; RESP 20; TEMP 98.1; O2SAT 96
[2017-07-25] MEDS: LEVOTHYROXINE SODIUM 50 MCG TAB PO SCH (06:00)
[2017-07-25] MEDS: PANTOPRAZOLE SODIUM 40 MG VIAL IV PUSH SCH (06:00)
[2017-07-25 08:00] VITALS: BP 124/59; PULSE 96; RESP 16; TEMP 97.8; O2SAT 97
[2017-07-25] MEDS: FOLIC ACID 1 MG TAB PO SCH (08:49)
[2017-07-25] MEDS: MULTIVITAMIN TAB PO SCH (08:49)
[2017-07-25] MEDS: LORazepam 2 MG TAB PO PRN (08:51)
[2017-07-25] MEDS: SODIUM CHLORIDE 0.9% FLUSH 10 ML FLUSH IV FLUSH SCH (09:00)
[2017-07-25] MEDS: THIAMINE INJ 100 MG in SODIUM CHLORIDE 0.9% INJ 100 ML IV SCH (09:00)
[2017-07-25 10:12] LABS: BICARBONATE 22.8 MEQ/L (21.0-32.0); POTASSIUM 3.3 MEQ/L (3.5-5.1)
[2017-07-25] MEDS: HEPARIN SODIUM - SQ 10,000 UNITS/ML VIAL SQ SCH (11:00)
[2017-07-25] MEDS ORDERED: POTASSIUM CHLORIDE 10 MEQ CONTROLLED RELEASE TAB PO ONE (11:30)
[2017-07-25 11:41] LABS: TOTAL BILIRUBIN ADULT 4.9 MG/DL (0.2-1.0)
[2017-07-25 11:46] LABS: INDIRECT BILIRUBIN 1.5 MG/DL (0.0-0.8)
[2017-07-25 12:00] VITALS: BP 114/59; PULSE 97; RESP 16; TEMP 98.1; O2SAT 97
[2017-07-25] MEDS ORDERED: ZOFR8TAB PO (13:50)
[2017-07-25] MEDS ORDERED: VITA100T54 PO (13:51)
--- NOTE | 2017-07-25 14:06 | HHI.PR ---
Subjective Remarks Patient says she drinks 3 alcoholic drinks per day. Denies she has a problem. I informed her of diagnosis of alcoholic cirrhosis, ended denies that he never drink alcohol again. Discussed the consequences of continued drinking including liver failure, multiple complications, and . She conveys understanding. I offered Ativan taper as well as rehabilitation services, but patient refuses. She is alert and oriented 4. Objective Vital Signs Date Time Temp Pulse Resp B/P (MAP) Pulse Ox O2 Delivery O2 Flow Rate FiO2 07/25/17 12:00 98.1 97 16 114/59 (77) 97 07/25/17 08:00 97.8 96 16 124/59 (80) 97 07/25/17 04:00 98.1 100 20 108/58 (75) 96 07/25/17 00:00 98.1 68 20 109/54 (72) 97 07/24/17 20:00 97.7 98 18 120/60 (80) 100 07/24/17 16:00 98.6 99 20 112/57 (75) 98 I/O 07/24/17 07/24/17 07/24/17 07/25/17 07/25/17 07/25/17 07:00 15:00 23:00 07:00 15:00 23:00 Intake Total 240 ml 1467 ml Balance 240 ml 1467 ml Intake Oral 240 ml 480 ml IV Total 987 ml # Voids 3 3 2 # Bowel Movements 0 Result Diagram: 07/22/17 1305 07/25/17 0850 Objective Remarks GENERAL: Patient sitting up in bed. Appears comfortable. Alert and oriented 4. SKIN: Warm and dry. HEAD: Normocephalic. EYES: No scleral icterus. No injection or drainage. NECK: Supple, trachea midline. No JVD. CARDIOVASCULAR: Regular rate and rhythm without murmurs, gallops, or rubs. RESPIRATORY: Breath sounds equal bilaterally. No accessory muscle use. GASTROINTESTINAL: Abdomen soft, non-tender, nondistended. MUSCULOSKELETAL: No cyanosis, or edema. BACK: Nontender without obvious deformity. No CVA tenderness. A/P Assessment and Plan //Seizure - most likely from alcohol abuse according to neurology - seizure precautions -Secondary to alcohol. Patient advised to discontinue alcohol completely. She refuses Librium taper. //Alcoholic cirrhosis. = Based on recent biopsy last month. In-depth discussion of consequences of continued drinking. Patient conveys understanding. She is alert and oriented 4. She refuses rehabilitation, refuses Librium taper. -Follow-up GI as outpatient. //Intractable Nausea/Vomiting - better controlled here - encourage progression of diet = Secondary to alcoholic cirrhosis. Nontender abdomen. Alcohol cessation advised. Refill Zofran. //Hypokalemia - low but stable (vomiting), taking in more PO today - recheck in AM and treat if still low. = 07/25. Replaced. Likely was secondary to correcting acidosis following seizure. //DVT Prophylaxis - Heparin Discharge Planning Discharge home. Follow-up with hepatology as outpatient. Patient declines Librium taper Case management to provide with alcohol rehabilitation information, although patient says she is not interested.. Salinas Day MD Jul 25, 2017 14:06
--- NOTE | 2017-07-25 14:09 | HHI.DS ---
Discharge Summary Admission Date Jul 22, 2017 at 16:43 Discharge Date: Jul 25, 2017 Admitting Diagnosis intractable n/v, hypokalemia (1) Alcohol abuse ICD Code: F10.10 - Alcohol abuse, uncomplicated (2) Intractable nausea and vomiting ICD Code: R11.2 - Nausea with vomiting, unspecified Status: Acute (3) Elevated lactic acid level ICD Code: R79.89 - Other specified abnormal findings of blood chemistry Status: Acute (4) Seizure ICD Code: R56.9 - Unspecified convulsions (5) Anxiety ICD Code: F41.9 - Anxiety disorder, unspecified Status: Acute (6) Gastritis and duodenitis ICD Code: K29.90 - Gastroduodenitis, unspecified, without bleeding Procedures No invasive procedures Brief History - From Admission 52-year-old female with a medical history significant for anxiety, gastritis/ duodenitis, chronic back pain on narcotics, hypothyroidism who initially presented to the emergency room with complaint of intractable nausea and vomiting that started at 4 AM. Patient was found to be hypokalemic with an elevated lactic acid. Initially was going to be admitted for observation. I evaluated the patient. She states she is feeling slightly better since arrival. She admits to drinking alcohol daily, 3-4 drinks. She states last drink was at 10 PM last night. She was very tremulous on my exam. Denies abdominal pain. About 10 minutes after I evaluated the patient, she had a generalized clonic tonic seizure witnessed by the nurse. I reevaluated the patient. She is postictal. Patient will be admitted to the ICU, loaded with Keppra and neurology consult. CBC/BMP: 07/22/17 1305 07/25/17 0850 Significant Findings Laboratory Tests Test 07/22/17 15:25 07/22/17 20:10 07/23/17 02:18 07/24/17 07:35 Lactic Acid Level 4.7 mmol/L (0.4-2.0) 4.0 mmol/L (0.4-2.0) Calcium Level 7.6 MG/DL (8.5-10.1) 7.6 MG/DL (8.5-10.1) Sodium Level 134 MEQ/L (136-145) Carbon Dioxide Level 13.8 MEQ/L (21.0-32.0) 20.4 MEQ/L (21.0-32.0) Anion Gap 16 MEQ/L (5-15) Blood Urea Nitrogen 6 MG/DL (7-18) 2 MG/DL (7-18) Albumin 3.3 GM/DL (3.4-5.0) Alkaline Phosphatase 278 U/L (45-117) 287 U/L (45-117) Aspartate Amino Transf (AST/SGOT) 233 U/L (15-37) 295 U/L (15-37) Alanine Aminotransferase (ALT/SGPT) 102 U/L (10-53) 118 U/L (10-53) Total Bilirubin 4.8 MG/DL (0.2-1.0) 5.7 MG/DL (0.2-1.0) Potassium Level 3.2 MEQ/L (3.5-5.1) 3.1 MEQ/L (3.5-5.1) Estimat Glomerular Filtration Rate 88 ML/MIN (>89) 79 ML/MIN (>89) Direct Bilirubin 3.8 MG/DL (0.0-0.2) Indirect Bilirubin 1.9 MG/DL (0.0-0.8) Test 07/25/17 08:50 Blood Urea Nitrogen 2 MG/DL (7-18) Potassium Level 3.3 MEQ/L (3.5-5.1) Total Bilirubin 4.9 MG/DL (0.2-1.0) Direct Bilirubin 3.4 MG/DL (0.0-0.2) Indirect Bilirubin 1.5 MG/DL (0.0-0.8) Aspartate Amino Transf (AST/SGOT) 292 U/L (15-37) Alanine Aminotransferase (ALT/SGPT) 143 U/L (10-53) Alkaline Phosphatase 281 U/L (45-117) Albumin 3.3 GM/DL (3.4-5.0) Imaging Last Impressions Brain MRI 07/24/17 0000 Signed Impressions: Service Date/Time: Monday, July 24, 2017 15:24 - CONCLUSION: Normal examination. Timothy Mon MD Hospital Course Neurology was consulted. Normal brain MRI. EEG without seizure activity. Neurology feels that seizure is likely secondary to alcohol withdrawal. Patient advised of alcoholic cirrhosis on recent biopsy. Advised that any alcohol can be potentially fatal. Patient advised on alcohol discontinuation. Patient refuses Librium taper. For problem-based summary from most recent progress note, please see below. //Seizure - most likely from alcohol abuse according to neurology - seizure precautions -Secondary to alcohol. Patient advised to discontinue alcohol completely. She refuses Librium taper. //Alcoholic cirrhosis. = Based on recent biopsy last month. In-depth discussion of consequences of continued drinking. Patient conveys understanding. She is alert and oriented 4. She refuses rehabilitation, refuses Librium taper. -Follow-up GI as outpatient. //Intractable Nausea/Vomiting - better controlled here - encourage progression of diet = Secondary to alcoholic cirrhosis. Nontender abdomen. Alcohol cessation advised. Refill Zofran. //Hypokalemia - low but stable (vomiting), taking in more PO today - recheck in AM and treat if still low. = 07/25. Replaced. Likely was secondary to correcting acidosis following seizure. //DVT Prophylaxis - Heparin //Seizure - most likely from alcohol abuse according to neurology - seizure precautions -Secondary to alcohol. Patient advised to discontinue alcohol completely. She refuses Librium taper. //Alcoholic cirrhosis. = Based on recent biopsy last month. In-depth discussion of consequences of continued drinking. Patient conveys understanding. She is alert and oriented 4. She refuses rehabilitation, refuses Librium taper. -Follow-up GI as outpatient. //Intractable Nausea/Vomiting - better controlled here - encourage progression of diet = Secondary to alcoholic cirrhosis. Nontender abdomen. Alcohol cessation advised. Refill Zofran. //Hypokalemia - low but stable (vomiting), taking in more PO today - recheck in AM and treat if still low. = 07/25. Replaced. Likely was secondary to correcting acidosis following seizure. //DVT Prophylaxis - Heparin Pt Condition on Discharge: Good Discharge Disposition: Discharge Home Discharge Time: > 30 minutes Discharge Instructions DIET: Follow Instructions for: As Tolerated, No Restrictions Activities you can perform: Regular-No Restrictions Activities to Avoid: Driving Other Activity Instructions: No driving for 6 months. Follow up Referrals: Gastroenterology PCP Follow-up - 1 Week with Jonny Love DO New Medications: Thiamine (Vitamin B-1) 100 Mg Tab 100 MG PO DAILY for Nutritional Supplement for 30 Days, #30 TAB 0 Refills Continued Medications: Clonazepam (Clonazepam) 1 Mg Tab 1 MG PO BID PRN for ANXIETY for 7 Days, TAB 0 Refills Gemfibrozil (Gemfibrozil) 600 Mg Tab 600 MG PO BID, #60 TAB 0 Refills Take 30 minutes prior to breakfast and dinner. Hyoscyamine Odt (Levsin-SL) 0.125 Mg Subl 0.125 MG SL Q4H PRN for Gastrointestinal disorders, TAB.SL 0 Refills Levothyroxine (Levothyroxine) 50 Mcg Tab 50 MCG PO DAILY for Thyroid, #30 TAB 0 Refills Metoclopramide (Metoclopramide) 10 Mg Tab 10 MG PO TIDAC for Nausea, #90 TAB 0 Refills Pttia-6-Pajy Ethyl Esters (Lovaza) 1 Gm Cap 2 GM PO BID for Manage Triglycerides, #120 CAP 0 Refills Ondansetron (Zofran) 8 Mg Tab 8 MG PO BID PRN for NAUSEA OR VOMITING, #30 TAB 0 Refills (This prescription has been renewed) Oxycodone (Oxycodone) 10 Mg Tab 10 MG PO Q6H PRN for PAIN, #28 TAB 0 Refills Sumatriptan (Imitrex) 100 Mg Tab 100 MG PO BID PRN for MIGRAINE HEADACHE, TAB 0 Refills If a satisfactory response has not been obtained at 2 hours, a second dose may be administered Valacyclovir (Valtrex) 500 Mg Tab 500 MG PO DAILY for Mgmt Viral Infection, #30 TAB 0 Refills Venlafaxine ER 24 HR (Effexor XR 24 HR) 150 Mg Cap 150 PO DAILY, #30 CAP 0 Refills Discontinued Medications: Sulfamethoxazole-Trimethoprim (Sulfamethoxazole-Trimethoprim) 800-160 Mg Tab 1 TAB PO Q12HR for Infection, #8 TAB Salinas Day MD Jul 25, 2017 14:09
== END 2017-07-25 15:28 | disposition home or self-care (01) | DRG 101 ==
LOC: NEPE 12:23 → NEDA 14:58 → NEPHCDU 16:04 → OBSVTOIN 16:43 → N03A 17:02 → N05B 07-23 14:42
PROVIDERS: ADMIT Internal Medicine; ATTEND Internal Medicine
DX: G40.89 Other seizures (principal); F10.231 Alcohol dependence with withdrawal delirium; E87.2 Acidosis; R11.2 Nausea with vomiting, unspecified; E87.6 Hypokalemia; F41.9 Anxiety disorder, unspecified; G89.29 Other chronic pain; M54.9 Dorsalgia, unspecified; E03.9 Hypothyroidism, unspecified; E78.5 Hyperlipidemia, unspecified; K29.90 Gastroduodenitis, unspecified, without bleeding; R74.0 Nonspecific elevation of levels of transaminase and lactic acid dehydrogenase [LDH]; K70.30 Alcoholic cirrhosis of liver without ascites; K21.9 Gastro-esophageal reflux disease without esophagitis; K70.10 Alcoholic hepatitis without ascites; K76.0 Fatty (change of) liver, not elsewhere classified; Y90.6 Blood alcohol level of 120-199 mg/100 ml; F32.9 Major depressive disorder, single episode, unspecified; M19.90 Unspecified osteoarthritis, unspecified site; Z79.891 Long term (current) use of opiate analgesic
CPT/HCPCS: 70553; 80048; 80053; 80076; 80307; 81001; 82550; 83605; 83690; 83735; 84443; 85025; 85610; 85730; 95819; 96361; 96372; 96374; 96375; A9579; C9113; J0500; J0780; J1200; J1644; J1953; J2270; J2405; J3411; J3480; J7030

== ENCOUNTER 2018-01-29 15:56 | Emergency (ER) | payer OTHER ==
[~2018-01-29] VITALS: Ht 160 cm; Wt 57.0 kg
[~2018-01-29 15:56] MED LIST changes: -SULF1TAB23 PO; +VITA100T54 PO
[2018-01-29] MEDS ORDERED: IOHEXOL 350 MG/ML 10 ML VIAL (for RAD DIAG) IVCONTRAST ONE (15:57)
[2018-01-29 15:59] VITALS: BP 137/61; PULSE 107; RESP 20; TEMP 99.1; O2SAT 99
[2018-01-29] MEDS ORDERED: SODIUM CHLOR 0.9% 1000 ML INJ 1,000 ML IV SCH (16:07)
[2018-01-29] MEDS ORDERED: PANTOPRAZOLE SODIUM 40 MG VIAL IVP ONE (16:15)
[2018-01-29] MEDS ORDERED: SODIUM CHLORIDE 0.9% FLUSH 10 ML FLUSH IV FLUSH PRN (16:15)
[2018-01-29] MEDS ORDERED: diphenhydrAMINE HCL 50 MG/ML VIAL IV PUSH ONE (16:15)
[2018-01-29] MEDS ORDERED: PROCHLORPERAZINE INJ 10 MG/2 ML VIAL IV PUSH ONE (16:15)
[2018-01-29] MEDS: LIDOCAINE VISCOUS 2% SOLN 15 ML UDC PO ONE ×2 (16:31→17:58)
[2018-01-29] MEDS: ALUMINUM/MAGNESIUM/SIMETH 30 ML CUP PO ONE ×2 (16:31→17:57)
[2018-01-29 16:39] VITALS: RESP 22; O2SAT 97
--- NOTE | 2018-01-29 16:47 | PD ---
HPI Chief Complaint: GI Complaint Time Seen by Provider: 16:07 Travel History International Travel<30 days: No Contact w/Intl Traveler<30days: No Traveled to known affect area: No History of Present Illness HPI The patient is 52 years old. She complains of abdominal pain. She states that it is severe. It started yesterday. She reports back pain. She reports vomiting and nausea. She reports history of chronic back pain. No interval trauma. She has a history of cholecystectomy and hysterectomy in addition to esophagitis duodenitis and hepatic steatosis. Her noted including PTSD depression anxiety and daily alcohol use. Timing constant. Pt reports to RN taking Morphine however unsure of dose. Hx of chronic abdominal also noted on prior records. PFSH Past Medical History Arthritis: Yes Asthma: No Blood Disorders: No Anxiety: Yes Depression: Yes Heart Rhythm Problems: No Cancer: No Cardiovascular Problems: Yes High Cholesterol: Yes Chemotherapy: No Chest Pain: No Congestive Heart Failure: No COPD: No Cerebrovascular Accident: No Diabetes: No Diverticulitis: Yes Endocrine: Yes Gastrointestinal Disorders: Yes (hepatic steatosis, esophagitis, duodenitis) GERD: Yes Genitourinary: Yes Headaches: Yes Hiatal Hernia: No Hypertension: Yes Immune Disorder: No Implanted Vascular Access Dvce: Yes Kidney Stones: Yes Musculoskeletal: Yes Neurologic: Yes Psychiatric: Yes Reproductive: No Respiratory: No Migraines: Yes Radiation Therapy: No Renal Failure: No Seizures: No Sleep Apnea: No Thyroid Disease: Yes (hypo ) Triglycerides - High: Yes Ulcer: No Influenza Vaccination: Yes ?: Not Tubal Ligation: Yes Past Surgical History Body Medical Devices: BREASTS IMPLANTS Cardiac Surgery: No Section: Yes Cholecystectomy: Yes Ear Surgery: No Endocrine Surgery: No Eye Surgery: No Hysterectomy: Yes Oral Surgery: No Thoracic Surgery: No Other Surgery: Yes (TUMMY TUCK, RHINOPLASTY, BREAST AUGMENTATION) Social History Alcohol Use: Yes (DAILY) Tobacco Use: No Substance Use: Yes (20 years ago cocaine. marijuana weekly) Allergies-Medications (Allergen,Severity, Reaction): Coded Allergies: clarithromycin (Verified Allergy, Severe, VOMITING, DIARRHEA, 01/29/18) NSAIDS (Non-Steroidal Anti-Inflamma (Verified Adverse Reaction, Intermediate, Nausea/Vomiting, 01/29/18) metronidazole (Verified Adverse Reaction, Intermediate, Nausea/Vomiting, ) Reported Meds & Prescriptions Reported Meds & Active Scripts Active Zofran (Ondansetron HCl) 8 Mg Tab 8 Mg PO BID PRN Reported Levothyroxine (Levothyroxine Sodium) 50 Mcg Tab 50 Mcg PO DAILY Effexor XR 24 HR (Venlafaxine HCl) 150 Mg Cap 150 PO DAILY Review of Systems Except as stated in HPI: all other systems reviewed are Neg General / Constitutional: No: Fever Gastrointestinal: Positive: Nausea, Vomiting, Abdominal Pain Physical Exam Narrative GENERAL: 52-year-old female moderate distress secondary to pain anxiety and or nausea vomiting and/or opiate withdrawal Vital Signs Date Time Temp Pulse Resp B/P (MAP) Pulse Ox O2 Delivery O2 Flow Rate FiO2 01/29/18 15:59 99.1 107 20 137/61 (86) 99 SKIN: Warm and dry. Piloerection noted HEAD: Atraumatic. Normocephalic. EYES: Pupils equal and round. No scleral icterus. No injection or drainage. ENT: No nasal bleeding or discharge. Mucous membranes pink and moist. NECK: Trachea midline. No JVD. CARDIOVASCULAR: Tachycardia. Regular rhythm.. RESPIRATORY: Tachypnea. Lungs are clear. GASTROINTESTINAL: Soft. No gross deformity. No hepatomegaly. MUSCULOSKELETAL: Extremities without clubbing, cyanosis, or edema. No obvious deformities. NEUROLOGICAL: Awake and alert. No obvious cranial nerve deficits. Motor grossly within normal limits. Five out of 5 muscle strength in the arms and legs. Normal speech. PSYCHIATRIC: Very anxious. Data Data Last Documented VS Vital Signs Date Time Temp Pulse Resp B/P (MAP) Pulse Ox O2 Delivery O2 Flow Rate FiO2 01/29/18 16:39 22 97 Room Air 01/29/18 15:59 99.1 107 137/61 (86) Orders Orders Complete Blood Count With Diff (01/29/18 16:07) Comprehensive Metabolic Panel (01/29/18 16:07) Lipase (01/29/18 16:07) Urinalysis - C+S If Indicated (01/29/18 16:07) Iv Access Insert/Monitor (01/29/18 16:07) Ecg Monitoring (01/29/18 16:07) Oximetry (01/29/18 16:07) Pantoprazole Inj (Protonix Inj) (01/29/18 16:15) Sodium Chlor 0.9% 1000 Ml Inj (Ns 1000 M (01/29/18 16:07) Sodium Chloride 0.9% Flush (Ns Flush) (01/29/18 16:15) Al-Mag Hy-Si 40-40-4 Mg/Ml Liq (Mag-Al P (01/29/18 16:15) Lidocaine 2% Viscous (Xylocaine 2% Visco (01/29/18 16:15) Prochlorperazine Inj (Compazine Inj) (01/29/18 16:15) Diphenhydramine Inj (Benadryl Inj) (01/29/18 16:15) Ct Abd/Pel W Iv Contrast(Rout) (01/29/18 16:33) Labs Laboratory Tests Test 01/29/18 16:30 White Blood Count 9.1 TH/MM3 Red Blood Count 3.89 MIL/MM3 Hemoglobin 14.1 GM/DL Hematocrit 41.1 % Mean Corpuscular Volume 105.6 FL Mean Corpuscular Hemoglobin 36.2 PG Mean Corpuscular Hemoglobin Concent 34.3 % Red Cell Distribution Width 16.0 % Platelet Count 167 TH/MM3 Mean Platelet Volume 9.0 FL Neutrophils (%) (Auto) 75.3 % Lymphocytes (%) (Auto) 17.6 % Monocytes (%) (Auto) 5.8 % Eosinophils (%) (Auto) 1.0 % Basophils (%) (Auto) 0.3 % Neutrophils # (Auto) 6.9 TH/MM3 Lymphocytes # (Auto) 1.6 TH/MM3 Monocytes # (Auto) 0.5 TH/MM3 Eosinophils # (Auto) 0.1 TH/MM3 Basophils # (Auto) 0.0 TH/MM3 CBC Comment DIFF FINAL Differential Comment MDM Medical Decision Making Medical Screen Exam Complete: Yes Emergency Medical Condition: Yes Medical Record Reviewed: Yes Differential Diagnosis Constipation, Gastritis, Acute Cholecystitis, Biliary Colic, Pancreatitis, SUAREZ , Hepatitis, Bowel Obstruction, Cystitis, Mesenteric Ischemia, AAA, Appendicitis , Renal Stone/Hydronephrosis, GERD, perforated viscous Narrative Course Workup started including CT scan of the abdomen and pelvis. IV fluids Compazine and Benadryl ordered. Protonix and GI cocktail also ordered. Case discussed with oncoming provider. The plan will be to follow-up blood work and CT scan and reassess patient with disposition pending results of work up. John Heck MD Jan 29, 2018 16:47
[2018-01-29 17:00] LABS: AUTOMATED NEUTROPHIL # 6.9 TH/MM3 (1.8-7.7); BASOPHIL % 0.3 % (0.0-2.0); EOSINOPHIL # 0.1 TH/MM3 (0-0.4); HEMATOCRIT 41.1 % (35.0-46.0); HEMOGLOBIN 14.1 GM/DL (11.6-15.3); LYMPH % 17.6 % (9.0-44.0); LYMPHOCYTE # 1.6 TH/MM3 (1.0-4.8); MEAN CELL VOLUME 105.6 FL (80.0-100.0); MEAN CORPUSCULAR HEMOGLOBIN 36.2 PG (27.0-34.0); MEAN CORPUSCULAR HGB CONC 34.3 % (32.0-36.0); MONO % 5.8 % (0.0-8.0); MONOCYTE # 0.5 TH/MM3 (0-0.9); NEUT % 75.3 % (16.0-70.0); PLATELET COUNT 167 TH/MM3 (150-450); RED BLOOD COUNT 3.89 MIL/MM3 (4.00-5.30); WHITE BLOOD COUNT 9.1 TH/MM3 (4.0-11.0)
--- NOTE | 2018-01-29 17:03 | PD ---
Physical Exam Date Seen by Provider: Jan 29, 2018 Time Seen by Provider: 17:02 Narrative The patient is a 52-year-old female was initially evaluated by the previous physician, Dr. Heck. Please refer to the initial history, physical, diagnostic evaluation, treatment modality plan. The patient was signed out at 5 PM laboratory evaluation and CT of the abdomen and pelvis pending. Data Data Last Documented VS Vital Signs Date Time Temp Pulse Resp B/P (MAP) Pulse Ox O2 Delivery O2 Flow Rate FiO2 01/29/18 16:39 22 97 Room Air 01/29/18 15:59 99.1 107 137/61 (86) Orders Orders Complete Blood Count With Diff (01/29/18 16:07) Comprehensive Metabolic Panel (01/29/18 16:07) Lipase (01/29/18 16:07) Urinalysis - C+S If Indicated (01/29/18 16:07) Iv Access Insert/Monitor (01/29/18 16:07) Ecg Monitoring (01/29/18 16:07) Oximetry (01/29/18 16:07) Pantoprazole Inj (Protonix Inj) (01/29/18 16:15) Sodium Chlor 0.9% 1000 Ml Inj (Ns 1000 M (01/29/18 16:07) Sodium Chloride 0.9% Flush (Ns Flush) (01/29/18 16:15) Al-Mag Hy-Si 40-40-4 Mg/Ml Liq (Mag-Al P (01/29/18 16:15) Lidocaine 2% Viscous (Xylocaine 2% Visco (01/29/18 16:15) Prochlorperazine Inj (Compazine Inj) (01/29/18 16:15) Diphenhydramine Inj (Benadryl Inj) (01/29/18 16:15) Ct Abd/Pel W Iv Contrast(Rout) (01/29/18 16:33) Iohexol 350 Inj (Omnipaque 350 Inj) (01/29/18 15:57) Ed Discharge Order (01/29/18 20:02) Metoclopramide Inj (Reglan Inj) (01/29/18 20:30) Labs Laboratory Tests Test 01/29/18 16:30 01/29/18 20:15 White Blood Count 9.1 TH/MM3 Red Blood Count 3.89 MIL/MM3 Hemoglobin 14.1 GM/DL Hematocrit 41.1 % Mean Corpuscular Volume 105.6 FL Mean Corpuscular Hemoglobin 36.2 PG Mean Corpuscular Hemoglobin Concent 34.3 % Red Cell Distribution Width 16.0 % Platelet Count 167 TH/MM3 Mean Platelet Volume 9.0 FL Neutrophils (%) (Auto) 75.3 % Lymphocytes (%) (Auto) 17.6 % Monocytes (%) (Auto) 5.8 % Eosinophils (%) (Auto) 1.0 % Basophils (%) (Auto) 0.3 % Neutrophils # (Auto) 6.9 TH/MM3 Lymphocytes # (Auto) 1.6 TH/MM3 Monocytes # (Auto) 0.5 TH/MM3 Eosinophils # (Auto) 0.1 TH/MM3 Basophils # (Auto) 0.0 TH/MM3 CBC Comment DIFF FINAL Differential Comment Blood Urea Nitrogen 5 MG/DL Creatinine 0.77 MG/DL Random Glucose 94 MG/DL Total Protein 9.2 GM/DL Albumin 3.9 GM/DL Calcium Level 9.5 MG/DL Alkaline Phosphatase 292 U/L Aspartate Amino Transf (AST/SGOT) 182 U/L Alanine Aminotransferase (ALT/SGPT) 59 U/L Total Bilirubin 3.7 MG/DL Sodium Level 145 MEQ/L Potassium Level 3.5 MEQ/L Chloride Level 112 MEQ/L Carbon Dioxide Level 20.3 MEQ/L Anion Gap 13 MEQ/L Estimat Glomerular Filtration Rate 79 ML/MIN Lipase 78 U/L Urine Color YELLOW Urine Turbidity CLEAR Urine pH 7.0 Urine Specific [place] GREATER THAN 1.060 Urine Protein NEG mg/dL Urine Glucose (UA) NEG mg/dL Urine Ketones NEG mg/dL Urine Occult Blood NEG Urine Nitrite NEG Urine Bilirubin NEG Urine Urobilinogen 4.0 OR GREATER mg/dL Urine Leukocyte Esterase NEG Urine RBC 1 /hpf Urine WBC 1 /hpf Urine Squamous Epithelial Cells <1 /hpf Microscopic Urinalysis Comment CULT NOT INDICATED MDM Medical Record Reviewed: Yes Supervised Visit with JOSE JUAN: No Interpretation(s) Last Impressions Abdomen/Pelvis CT 01/29/18 1633 Signed Impressions: CONCLUSION: 1. No findings to indicate a bowel obstruction identified. No free intraperito khalida air free fluid seen. 2. Stable 2.5 cm cyst within the spleen. Laboratory Tests Test 01/29/18 16:30 01/29/18 20:15 White Blood Count 9.1 TH/MM3 Red Blood Count 3.89 MIL/MM3 Hemoglobin 14.1 GM/DL Hematocrit 41.1 % Mean Corpuscular Volume 105.6 FL Mean Corpuscular Hemoglobin 36.2 PG Mean Corpuscular Hemoglobin Concent 34.3 % Red Cell Distribution Width 16.0 % Platelet Count 167 TH/MM3 Mean Platelet Volume 9.0 FL Neutrophils (%) (Auto) 75.3 % Lymphocytes (%) (Auto) 17.6 % Monocytes (%) (Auto) 5.8 % Eosinophils (%) (Auto) 1.0 % Basophils (%) (Auto) 0.3 % Neutrophils # (Auto) 6.9 TH/MM3 Lymphocytes # (Auto) 1.6 TH/MM3 Monocytes # (Auto) 0.5 TH/MM3 Eosinophils # (Auto) 0.1 TH/MM3 Basophils # (Auto) 0.0 TH/MM3 CBC Comment DIFF FINAL Differential Comment Blood Urea Nitrogen 5 MG/DL Creatinine 0.77 MG/DL Random Glucose 94 MG/DL Total Protein 9.2 GM/DL Albumin 3.9 GM/DL Calcium Level 9.5 MG/DL Alkaline Phosphatase 292 U/L Aspartate Amino Transf (AST/SGOT) 182 U/L Alanine Aminotransferase (ALT/SGPT) 59 U/L Total Bilirubin 3.7 MG/DL Sodium Level 145 MEQ/L Potassium Level 3.5 MEQ/L Chloride Level 112 MEQ/L Carbon Dioxide Level 20.3 MEQ/L Anion Gap 13 MEQ/L Estimat Glomerular Filtration Rate 79 ML/MIN Lipase 78 U/L Urine Color YELLOW Urine Turbidity CLEAR Urine pH 7.0 Urine Specific [place] GREATER THAN 1.060 Urine Protein NEG mg/dL Urine Glucose (UA) NEG mg/dL Urine Ketones NEG mg/dL Urine Occult Blood NEG Urine Nitrite NEG Urine Bilirubin NEG Urine Urobilinogen 4.0 OR GREATER mg/dL Urine Leukocyte Esterase NEG Urine RBC 1 /hpf Urine WBC 1 /hpf Urine Squamous Epithelial Cells <1 /hpf Microscopic Urinalysis Comment CULT NOT INDICATED Differential Diagnosis Differential diagnosis includes appendicitis, cholecystitis, perforated viscus, peptic ulcer disease, pancreatitis, chronic pain, opiate withdrawal, ischemic bowel disease, pyelonephritis, nephrolithiasis. Narrative Course The patient is a 52-year-old female was initially evaluated by the previous physician. Please refer to the initial history, physical, diagnostic evaluation , and treatment modality plan. The patient was signed out at 5 PM with laboratory evaluation and CT of the abdomen and pelvis pending. The patient's white count was unremarkable. The patient's LFTs are elevated, AST greater than ALT, consistent with possible alcoholic hepatitis. I did review the EMR, the patient has had higher elevated levels of AST and ALT in the past. She has also had alcohol level of 141 in the past and an MCV greater than 100 is noted. Patient may have macrocytosis secondary to chronic alcohol abuse. CT the abdomen and pelvis is unremarkable, no acute findings. UA was sent to lab, was negative. The patient still had mild nausea, was administered Reglan 10 mg intravenously. The patient is advised to follow-up with her primary physician. Diagnosis Primary Impression: Nausea & vomiting Qualified Codes: R11.2 - Nausea with vomiting, unspecified Additional Impression: Abdominal pain Qualified Codes: R10.84 - Generalized abdominal pain Patient Instructions: General Instructions Additional Instruction: Please provide the patient a copy of her CT results and lab results at discharge. Follow-up with her primary physician. Clear liquid diet and advance as tolerated. Med/Other Pt SpecificInfo: No Change to Meds Disposition: 01 DISCHARGE HOME Condition: Stable Scot Gee MD Jan 29, 2018 17:03
[2018-01-29 17:23] LABS: ALBUMIN 3.9 GM/DL (3.4-5.0); AST (GOT) 182 U/L (15-37); BICARBONATE 20.3 MEQ/L (21.0-32.0); BLOOD UREA NITROGEN 5 MG/DL (7-18); CALCIUM 9.5 MG/DL (8.5-10.1); CHLORIDE 112 MEQ/L (98-107); CREATININE 0.77 MG/DL (0.50-1.00); GLOMERULAR FILTRATION RATE 79 ML/MIN (>89); GLUCOSE,RANDOM 94 MG/DL (74-106); SODIUM (NA) 145 MEQ/L (136-145)
[2018-01-29 17:26] LABS: ALKALINE PHOSPHATASE 292 U/L (45-117); ALT (GPT) 59 U/L (10-53); TOTAL BILIRUBIN ADULT 3.7 MG/DL (0.2-1.0); TOTAL PROTEIN 9.2 GM/DL (6.4-8.2)
--- NOTE | 2018-01-29 19:43 | RADRPT ---
EXAM DATE: 01/29/2018 7:02 PM EDT AGE/SEX: 52 years / Female INDICATIONS: NAUSEA VOMITING NECK AND ABDOMEN PAIN CLINICAL DATA: This is the patient's initial encounter. Patient reports that signs and symptoms have been present for 1 day and indicates a pain score of 10/10. MEDICAL/SURGICAL HISTORY: Hypertension. Diverticulitis. Hysterectomy. Cholecystectomy. ORAL CONTRAST: No oral contrast ingested. RADIATION DOSE: 6.57 CTDI (mGy) [place] [facility] [place]/31[place]. . TECHNIQUE: Multiple contiguous axial images were obtained through the abdomen and pelvis following b olus infusion of 100 ml Omnipaque 350 (iohexol) nonionic water-soluble contrast as a single exam do se. No oral contrast ingested. Using automated exposure control and adjustment of the mA and/or kV a ccording to patient size, radiation dose was kept as low as reasonably achievable to obtain optimal d iagnostic quality images. DICOM format image data is available electronically for review and compari son. FINDINGS: The limited portion of lung base visualized is clear. The enhancement of the liver somewhat heterogeneous suggesting cirrhosis. The patient is post cholecy stectomy. Note is made of a 2.5 cm cyst in the anterior aspect of the spleen. This is unchanged compared to the patient's prior dated 05/31/2017. The pancreas, adrenal glands and kidneys are normal in appearance. No findings to indicate a bowel obstruction are identified. No free intraperitoneal air or free intra peritoneal fluid is present. There is no free fluid within the pelvis. No iliac or inguinal adenopathy is seen. The visualized bony structures demonstrate degenerative changes but are otherwise intact. CONCLUSION: 1. No findings to indicate a bowel obstruction identified. No free intraperitoneal air free fluid se en. 2. Stable 2.5 cm cyst within the spleen. Electronically signed by: John Cadet MD 01/29/2018 7:42 PM EDT
[2018-01-29] MEDS ORDERED: METOCLOPRAMIDE HCL 10 MG/2 ML VIAL IV PUSH ONE (20:30)
[2018-01-29 20:49] LABS: BILIRUBIN, URINE NEG (NEG); BLOOD, URINE NEG (NEG); GLUCOSE,URINE NEG (NEG); KETONE, URINE NEG (NEG); NITRITE,URINE NEG (NEG); SQUAMOUS EPITHELIAL CELL URINE <1 /hpf (0-5); URINE COLOR YELLOW (YELLW/STRAW); URINE LEUKOCYTE ESTERASE NEG (NEG)
== END 2018-01-29 21:35 | disposition home or self-care (01) ==
LOC: NEPD 15:56
DX: R11.2 Nausea with vomiting, unspecified (principal); R10.84 Generalized abdominal pain; R79.89 Other specified abnormal findings of blood chemistry; M54.9 Dorsalgia, unspecified; G89.29 Other chronic pain; I10 Essential (primary) hypertension; E03.9 Hypothyroidism, unspecified; K21.9 Gastro-esophageal reflux disease without esophagitis; E78.5 Hyperlipidemia, unspecified; F41.8 Other specified anxiety disorders; Z87.39 Personal history of other diseases of the musculoskeletal system and connective tissue; Z86.79 Personal history of other diseases of the circulatory system; Z87.19 Personal history of other diseases of the digestive system; Z87.448 Personal history of other diseases of urinary system; Z86.69 Personal history of other diseases of the nervous system and sense organs
CPT/HCPCS: 74177; 80053; 81001; 83690; 85025; 96361; 96374; 96375; 99285; C9113; J0780; J1200; J2765; J7030; Q9967

== ENCOUNTER 2018-09-25 18:07 | Inpatient (IN) ==
--- NOTE | 2018-09-25 19:40 | ED ---
HPI General Chief complaint: Fall Stated complaint: fall/hit back head Time Seen by Provider: 09/25/18 19:29 History of Present Illness HPI narrative: LYNDA Patient is a 53-year-old female with a self-reported history of alcoholic cirrhosis presents emergency department for evaluation after a trip and fall. Patient states she was shopping grocery store when her feet came out from underneath her and she fell forward face planting, she states she had a handful of groceries or could not brace herself on the way down, unclear as to whether she lost consciousness after the impact. She is complaining of nose pain, denies any chest pain shortness breath abdominal pain nausea vomiting diarrhea constipation. She does endorse some headache and neck pain. Patient states she is been feeling weak ever since discharge from the hospital but no specific focalized weakness. Symptoms moderate, started just prior to arrival, associated signs symptoms and context as above per Related Data Previous Rx's Medication Instructions Recorded lactulose 30 ml PO DAILY #1000 ml 08/17/18 levothyroxine 75 mcg PO DAILY #30 tab 08/17/18 multivitamin with folic acid 1 tab PO DAILY #30 tab 08/17/18 [Thera] pantoprazole 40 mg PO BID #60 tab 08/17/18 thiamine HCl (vitamin B1) 100 mg PO BID #30 tab 08/17/18 venlafaxine 25 mg PO DAILY #30 tab 08/17/18 spironolactone 50 mg PO DAILY 30 Days #30 tab 09/05/18 nadolol 40 mg PO DAILY #30 tab 09/08/18 Allergies Allergy/AdvReac Type Severity Reaction Status Date / Time clarithromycin Allergy Severe VOMITING, Verified 09/02/18 19:47 DIARRHEA metronidazole AdvReac Intermediate Nausea/Vomi Verified 09/02/18 19:47 ting NSAIDS (Non-Steroidal AdvReac Intermediate Nausea/Vomi Verified 09/02/18 19:47 Anti-Inflamma ting aspirin AdvReac Diarrhea Verified 09/02/18 19:47 diphenhydramine AdvReac Anxiety Verified 09/02/18 19:47 [From Benadryl] Review of Systems ROS: all other systems reviewed are negative PMFSH Social History Social History Substance History: Past History Second Hand Smoke Exposure: No Smoking Status: Former smoker Tobacco Type: Cigarettes How Often Do You Have a Drink Containing Alcohol: Never Recent Travel in [facility] within the Last 8 Weeks: No Recent Out of Country Travel within the Last 8 Weeks: No Exam Narrative Exam Narrative: GENERAL: Well-developed well-nourished, crying but nontoxic appearance. SKIN: Focused skin assessment warm/dry. No jaundice, no generalized bruising or bleeding, no petechiae. HEAD: No durbin signs no raccoon's eyes, there is small abrasion over the bridge of her nose, possible rightward deviation of the nose which is mild. No obvious swelling. Normocephalic. EYES: Pupils equal and round. No scleral icterus. No injection or drainage. ENT: No nasal bleeding or discharge. Mucous membranes pink and moist. No septal hematoma NECK: Trachea midline. No JVD. CARDIOVASCULAR: Regular rate and rhythm. No murmur appreciated. RESPIRATORY: No accessory muscle use. Clear to auscultation. Breath sounds equal bilaterally. GASTROINTESTINAL: Abdomen soft, non-tender, nondistended. Hepatic and splenic margins not palpable. MUSCULOSKELETAL: No obvious deformities. No clubbing. No cyanosis. No edema. Minimal neck tenderness, patient uncooperative with exam unclear if it is midline or lateral. Extremities are atraumatic. NEUROLOGICAL: Awake and alert. No obvious cranial nerve deficits. Motor grossly within normal limits. Normal speech. PSYCHIATRIC: Appropriate mood and affect; insight and judgment normal. Course Reevaluation(s) Reevaluation #1: I reviewed the patient's history and exam. I personally examined the patient. I reviewed the patient's CT of the facial bones, head and neck. She has been taken out of her cervical collar. Patient states that she had just recently got out of the hospital due to GI bleeding. Patient states that she has been having intermittent fever and chills after being discharged. She does admit to congestion and cough. She denies any shortness of breath or wheezing. She states that she has been rundown, weak and has had general malaise. She had a fall today which precipitated her evaluation. The CT scan of the cervical spine showed abnormalities of the lung therefore a CT scan of the chest and laboratory testing has been performed. Patient has a 15, [address] of the chest reveals what appears to be scattered pulmonary infiltrates. With her recent hospitalization she will be admitted for hospital-acquired pneumonia. Patient will be given Levaquin 750 mg IV and vancomycin 1 g IV. I will add onto blood cultures,, and lactic acid level. Patient at this point does not meet Sirs criteria. A call out to the [facility] service has been placed. Patient is made with the clinical findings and agrees with the treatment plan and admission. Time: 23:25 Reevaluation #2: I have discussed the case with Dr. Solano who is accepted the admission. Patient will be admitted and continued on hospital-acquired pneumonia Time: 23:49 Initial Documented Vital Signs Temperature 99.0 F 09/25/18 18:22 Pulse Rate 83 09/25/18 18:22 Respiratory Rate 20 09/25/18 18:22 Blood Pressure 108/53 L 09/25/18 18:22 Pulse Oximetry 99 09/25/18 18:22 Last Documented Vital Signs Temperature 99.0 F 09/25/18 18:22 Pulse Rate 83 09/25/18 18:22 Respiratory Rate 20 09/25/18 18:22 Blood Pressure 108/53 L 09/25/18 18:22 Pulse Oximetry 99 09/25/18 18:22 Medical Decision Making MDM Narrative Medical decision making narrative: Patient seen and examined by me Dr. Fuentes, patient placed in cervical collar, pain medicine ordered, CT of the head cervical spine and facial bones has been ordered. I anticipate the studies may show nasal bone fracture otherwise probably be negative and the patient follow- up outpatient. Patient seen as part of rapid medical assessment in triage. They were handed off to the JOSE JUAN to follow the MDM as outlined above. If results are outside the patient's expected ED course then either myself or the other physicians will be available for consultation. Medical Screen Exam Complete: Yes Emergency Medical Condition: Yes Lab Data Result diagrams: 09/25/18 21:20 09/25/18 21:20 Lab Results 09/25/18 09/25/18 Range/Units 21:20 21:20 WBC 15.7 H (4.0-11.0) th/mm3 RBC 3.01 L (4.00-5.30) mil/mm3 Hgb 10.5 L (11.6-15.3) gm/dL Hct 31.1 L (35.0-46.0) % MCV 103.5 H (80.0-100.0) fL MCH 34.8 H (27.0-34.0) pg MCHC 33.6 (32.0-36.0) % RDW 16.9 (11.6-17.2) % Plt Count 193 (150-450) th/mm3 MPV 10.1 (7.0-11.0) fL Prelim Diff (Auto) Slide review pending Neut % (Auto) 69.3 (16.0-70.0) % Lymph % (Auto) 15.5 (9.0-44.0) % [place] % (Auto) 11.8 H (0.0-8.0) % Eos % (Auto) 2.3 (0.0-4.0) % Baso % (Auto) 1.1 (0.0-2.0) % Neut # (Auto) 10.9 H (1.8-7.7) th/mm3 Lymph # (Auto) 2.4 (1.0-4.8) th/mm3 [place] # (Auto) 1.9 H (0.0-0.9) th/mm3 Eos # (Auto) 0.4 (0.0-0.4) th/mm3 Baso # (Auto) 0.2 (0.0-0.2) th/mm3 WBC Differential . Diff Scan Auto diff confirmed Differential Comment . Platelet Estimate Normal (Normal) Platelet Morphology (Normal) Ovalocytes 1+ H (None) Acanthocytes (Spur) 2+ H (None) Sodium 137 (136-145) meq/L Potassium 4.5 (3.5-5.1) meq/L Chloride 105 (98-107) meq/L Carbon Dioxide 24.8 (21.0-32.0) meq/L Anion Gap 7 (5-15) meq/L BUN 5 L (7-18) mg/dL Creatinine 0.82 (0.50-1.00) mg/dL Estimated GFR 73 L (>89) mL/min Random Glucose 92 (74-106) mg/dL Calcium 9.1 (8.5-10.1) mg/dL Total Bilirubin 7.9 H (0.2-1.0) mg/dL AST 54 H (15-37) U/L ALT 26 (10-53) U/L Alkaline Phosphatase 139 H (45-117) U/L Total Protein 8.3 H (6.4-8.2) g/dL Albumin 3.1 L (3.4-5.0) g/dL Imaging Data Radiologist's impression: Cervical Spine CT 09/25/18 19:36 CONCLUSION: 1. Stable 2 mm retrolisthesis of C3 on C4 presumably degenerative in etiology. 2. No acute fracture. 3. New partially imaged nearly masslike airspace consolidations at the lung apices measuring 2.5 cm on the right and 2 cm on the left. Differential considerations include focal pneumonia, aspiration, atypical infection or less likely septic emboli. Clinical correlation is recommended. Face CT 09/25/18 19:36 CONCLUSION: 1. Nondisplaced fractures involving the nasal bones and nasal septum. 2. Right frontal soft tissue swelling. Head CT 09/25/18 19:36 CONCLUSION: 1. No acute intracranial abnormality. . . Chest CTA 09/25/18 20:51 CONCLUSION: 1. Scattered infiltrates/groundglass densities in both lungs. Diagnostic considerations include bilateral pneumonic infiltrates or hypersensitivity pneumonitis. 2. CT findings of cirrhosis with ascites. Discharge Plan Discharge Disposition Patient Disposition: ED Admit(ED Internal Use Only) Discharge Condition Condition: Stable Discharge Order Discharge Orders: ED Use Only Admit Order (Routine); Ordered 09/25/18 Ordered By: Jacob Obando Discharge Details Diagnosis: HABP (hospital-acquired bacterial pneumonia), Closed fracture nasal bone, Fall Physicians Team ED Provider: Finesse Fuentes ED Midlevel Provider: Jacob Obando Primary Care Provider: UNKNOWN, Rxs /Orders / Referrals /Forms Prescriptions: No Action thiamine HCl (vitamin B1) 100 mg Tablet 100 mg PO BID Qty: 30 RF: 0 pantoprazole 40 mg Tablet,Delayed Release (Dr/Ec) 40 mg PO BID Qty: 60 RF: 1 lactulose 20 gram/30 mL Solution 30 ml PO DAILY Qty: 1000 RF: 1 multivitamin with folic acid [Thera] 400 mcg Tablet 1 tab PO DAILY Qty: 30 RF: 0 levothyroxine 75 mcg Tablet 75 mcg PO DAILY Qty: 30 RF: 0 venlafaxine 25 mg Tablet 25 mg PO DAILY Qty: 30 RF: 0 spironolactone 50 mg Tablet 50 mg PO DAILY 30 Days Qty: 30 RF: 0 nadolol 40 mg tablet 40 mg PO DAILY Qty: 30 RF: 0 Status ED Status: Admitted Patient
--- NOTE | 2018-09-25 20:43 | CT ---
EXAM DATE: 09/25/2018 8:38 PM EST AGE/SEX: 53 years / Female INDICATIONS: Trauma. Head injury. Fell today and hit face. Right side head pain. CLINICAL DATA: This is the patient's initial encounter. Patient reports that signs and symptoms have been present for 1 day and indicates a pain score of 8/10. MEDICAL/SURGICAL HISTORY: . Alcohol abuse. None. RADIATION DOSE: 42.85 CTDI (mGy) COMPARISON: [facility] – [place], [place] HEAD W/O CONTRAST, 08/04/2018. . TECHNIQUE: CT of the head without contrast. Using automated exposure control and adjustment of the mA and/or kV according to patient size, radiation dose was kept as low as reasonably achievable to ob tain optimal diagnostic quality images. DICOM format image data is available electronically for revi ew and comparison. FINDINGS: Cerebrum: The ventricles are normal for age. No evidence of midline shift, mass lesion, hemorrhage or acute infarction. No extraaxial fluid collections are seen. Posterior Fossa: The cerebellum and brainstem are intact. The 4th ventricle is midline. The cerebe llopontine angle is unremarkable. Extracranial: The visualized portion of the orbits is intact. Skull: The calvaria is intact. No evidence of skull fracture. CONCLUSION: 1. No acute intracranial abnormality. . . Electronically signed by: Chet Paez MD Board Certified Radiologist 09/25/2018 8:41 PM EST
--- NOTE | 2018-09-25 20:45 | CT ---
EXAM DATE: 09/25/2018 8:38 PM EST AGE/SEX: 53 years / Female INDICATIONS: Neck pain. Fall. CLINICAL DATA: This is the patient's initial encounter. Patient reports that signs and symptoms have been present for 1 day and indicates a pain score of 8/10. MEDICAL/SURGICAL HISTORY: . Alcohol abuse. None. RADIATION DOSE: 36.68 CTDI (mGy) [place] [facility] [place]UE [place]/O CONTRAST, 09/03/2018. . TECHNIQUE: Contiguous axial images were obtained using helical multirow detector technique. The vol umetric data was post-processed with multiplanar reconstruction in oblique axial, sagittal, and coron al planes. Using automated exposure control and adjustment of the mA and/or kV according to patient s ize, radiation dose was kept as low as reasonably achievable to obtain optimal diagnostic quality jung ges. DICOM format image data is available electronically for review and comparison. FINDINGS: OSSEOUS STRUCTURES: Vertebral body heights are maintained. Osseous structures are intact without evid ence for acute bony fracture. Dens is intact. ALIGNMENT: Nearly 2 mm retrolisthesis of C3 on C4. Sagittal alignment is otherwise stable from prior exam. There is a normal C1-2 relationship. Facets are normally aligned. SOFT TISSUES: There is no significant prevertebral soft tissue hematoma. No significant cervical lex nopathy or gross mass. The thyroid appears unremarkable. Partially imaged new masslike airspace cons olidations at the lung apices measuring 2.5 cm on the right and 2 cm on the left. ADDITIONAL FINDINGS: Advanced multilevel degenerative spondylosis of the cervical spine most notably at C3-4 and C5-6 with severe disc space loss and posterior disc osteophytes. Bony central canal is pa tent. Bony neural foramina are patent. CONCLUSION: 1. Stable 2 mm retrolisthesis of C3 on C4 presumably degenerative in etiology. 2. No acute fracture. 3. New partially imaged nearly masslike airspace consolidations at the lung apices measuring 2.5 cm on the right and 2 cm on the left. Differential considerations include focal pneumonia, aspiration, a typical infection or less likely septic emboli. Clinical correlation is recommended. Electronically signed by: Parish Fitch MD Board Certified Radiologist 09/25/2018 8:44 PM EST
--- NOTE | 2018-09-25 20:46 | CT ---
EXAM DATE: 09/25/2018 8:39 PM EST AGE/SEX: 53 years / Female INDICATIONS: Fall on face. Nose pain. CLINICAL DATA: This is the patient's initial encounter. Patient reports that signs and symptoms have been present for 1 day and indicates a pain score of 8/10. MEDICAL/SURGICAL HISTORY: . Alcohol abuse. None. RADIATION DOSE: 54.82 CTDI (mGy) COMPARISON: No prior exams available for comparison. TECHNIQUE: Contiguous images in the axial and coronal planes were obtained using helical multirow de tector technique. Using automated exposure control and adjustment of the mA and/or kV according to p atient size, radiation dose was kept as low as reasonably achievable to obtain optimal diagnostic juan lity images. DICOM format image data is available electronically for review and comparison. FINDINGS: Orbits: The orbital and infraorbital osseous structures are intact. The retroconal structures have a normal configuration. No radiopaque foreign bodies are seen. Nasal Bone: Nondisplaced fractures involving the nasal bones bilaterally.. Zygomatic Arches: Symmetric without evidence of fracture. Sinuses: The maxillary, ethmoid, and frontal sinuses are intact. No air-fluid levels seen. Nasal Cavity: There is a small nondisplaced fracture involving the nasal septum. No angulation or di straction. Nasal septum is minimally deviated towards the patient's left.. The lacrimal ducts are in tact. Soft Tissues: No radiopaque foreign bodies seen. Right frontal soft tissue swelling.. Intracranial: No intracranial air seen. Cribriform Plate: Grossly intact. CONCLUSION: 1. Nondisplaced fractures involving the nasal bones and nasal septum. 2. Right frontal soft tissue swelling. Electronically signed by: Chet Paez MD Board Certified Radiologist 09/25/2018 8:44 PM EST
[2018-09-25] MEDS ORDERED: Sod Chloride 0.9% Inj 1,000 ML IV.SIG SCH (21:00)
[2018-09-25 21:54] LABS: Baso # (Auto) 0.2 th/mm3 (0.0-0.2); Baso % (Auto) 1.1 % (0.0-2.0); Eos # (Auto) 0.4 th/mm3 (0.0-0.4); Eos % (Auto) 2.3 % (0.0-4.0); Hematocrit 31.1 % (35.0-46.0); Hemoglobin 10.5 gm/dL (11.6-15.3); Lymph # (Auto) 2.4 th/mm3 (1.0-4.8); Lymph % (Auto) 15.5 % (9.0-44.0); Mean Corpuscular HGB Conc 33.6 % (32.0-36.0); Mean Corpuscular Hemoglobin 34.8 pg (27.0-34.0); Mean Corpuscular Volume 103.5 fL (80.0-100.0); Mean Platelet Volume 10.1 fL (7.0-11.0); Mono # (Auto) 1.9 th/mm3 (0.0-0.9); Mono % (Auto) 11.8 % (0.0-8.0); Neut # (Auto) 10.9 th/mm3 (1.8-7.7); Neut % (Auto) 69.3 % (16.0-70.0); Platelet Count 193 th/mm3 (150-450); Red Blood Count 3.01 mil/mm3 (4.00-5.30); Red Cell Distribution Width 16.9 % (11.6-17.2); White Blood Count 15.7 th/mm3 (4.0-11.0)
[2018-09-25 22:10] LABS: Alanine Aminotransferase 26 U/L (10-53)
[2018-09-25 22:12] LABS: Alkaline Phosphatase 139 U/L (45-117); Total Protein 8.3 g/dL (6.4-8.2)
[2018-09-25 22:20] LABS: Albumin 3.1 g/dL (3.4-5.0); Anion Gap 7 meq/L (5-15); Blood Urea Nitrogen 5 mg/dL (7-18); Calcium 9.1 mg/dL (8.5-10.1); Carbon Dioxide 24.8 meq/L (21.0-32.0); Chloride 105 meq/L (98-107); Glomerular Filtration Rate 73 mL/min (>89); Glucose,Random 92 mg/dL (74-106); Sodium 137 meq/L (136-145)
[2018-09-25 22:21] LABS: Aspartate Aminotransferase 54 U/L (15-37); Potassium 4.5 meq/L (3.5-5.1)
[2018-09-25 22:40] LABS: Platelet Estimate Normal (Normal)
[2018-09-25 22:43] LABS: Acanthocytes 2+
[2018-09-25 22:44] LABS: Ovalocytes 1+
--- NOTE | 2018-09-25 23:07 | CT ---
EXAM DATE: 09/25/2018 11:00 PM EST AGE/SEX: 53 years / Female INDICATIONS: Shortness of breath. CLINICAL DATA: This is the patient's initial encounter. Patient reports that signs and symptoms have been present for 1 day and indicates a pain score of 0/10. MEDICAL/SURGICAL HISTORY: Gastroesophageal reflux disease. Cirrhosis. ETOH Abuse. Cholecystectomy . Hysterectomy. Breast augmentation. RADIATION DOSE: 7.91 CTDI (mGy) COMPARISON: [facility] – [place], CT CHEST W/O CONTRAST, 09/03/2018. . TECHNIQUE: Volumetric scanning was performed using a multi-row detector CT scanner during bolus infu cassius of 75 ml Omnipaque 350 (iohexol) nonionic water-soluble contrast as a single exam dose. The jamar a was post processed with a variety of visualization algorithms including full volume maximum intensi ty projection and sliding thin slab reformation. Using automated exposure control and adjustment of the mA and/or kV according to patient size, radiation dose was kept as low as reasonably achievable t o obtain optimal diagnostic quality images. DICOM format image data is available electronically for review and comparison. FINDINGS: Pulmonary Arteries: No filling defects are seen in the pulmonary arteries out to the subsegmental ve ssels. The left and right pulmonary arteries are normal in diameter. Lung: There are scattered infiltrates and groundglass densities in both hemithoraces, right greater than left.. Effusion: None. Mediastinum: No evidence of mediastinal or hilar adenopathy. Other: The axilla is unremarkable. Bilateral breast augmentation. Liver is small and nodular charact eristic of some degree of cirrhosis. Ascites in the upper abdomen.. CONCLUSION: 1. Scattered infiltrates/groundglass densities in both lungs. Diagnostic considerations include bila teral pneumonic infiltrates or hypersensitivity pneumonitis. 2. CT findings of cirrhosis with ascites. Electronically signed by: Raji Marshall MD Board Certified Radiologist 09/25/2018 11:06 PM EST
[2018-09-25] MEDS ORDERED: Vancomycin Inj 1,000 MG in Sodium Chlor 0.9% Inj 250 ML IV.SIG SCH (23:45)
[2018-09-25] MEDS ORDERED: Vancomycin Consult Pharmacy OTHER PRN (23:47)
[2018-09-25] MEDS ORDERED: LORazepam 1 MG Tablet PO PRN (23:47)
[2018-09-26] MEDS ORDERED: Vancomycin Consult Pharmacy OTHER PRN (00:37)
[2018-09-26] MEDS ORDERED: Vancomycin Inj 1,000 MG in Sodium Chlor 0.9% Inj 250 ML IV.SIG ONE (01:00)
[2018-09-26] MEDS: Piperacil/Tazo 4.5 GM Premix 4.5 GM/100 ML BAG IV.SIG SCH ×4 (01:50→21:22)
[2018-09-26 06:40] LABS: Albumin 2.7 g/dL (3.4-5.0); Anion Gap 8 meq/L (5-15); Aspartate Aminotransferase 34 U/L (15-37); Blood Urea Nitrogen 4 mg/dL (7-18); Calcium 8.8 mg/dL (8.5-10.1); Carbon Dioxide 23.4 meq/L (21.0-32.0); Chloride 108 meq/L (98-107); Glomerular Filtration Rate 81 mL/min (>89); Glucose,Random 81 mg/dL (74-106); Potassium 4.1 meq/L (3.5-5.1); Sodium 139 meq/L (136-145)
[2018-09-26 06:41] LABS: Alanine Aminotransferase 22 U/L (10-53)
[2018-09-26 06:43] LABS: Alkaline Phosphatase 124 U/L (45-117); Total Protein 7.3 g/dL (6.4-8.2)
[2018-09-26 06:53] LABS: Baso # (Auto) 0.1 th/mm3 (0.0-0.2); Baso % (Auto) 0.7 % (0.0-2.0); Eos # (Auto) 0.2 th/mm3 (0.0-0.4); Eos % (Auto) 1.7 % (0.0-4.0); Hematocrit 30.1 % (35.0-46.0); Hemoglobin 10.3 gm/dL (11.6-15.3); Lymph # (Auto) 2.4 th/mm3 (1.0-4.8); Lymph % (Auto) 17.8 % (9.0-44.0); Mean Corpuscular Hemoglobin 36.1 pg (27.0-34.0); Mean Corpuscular Volume 106.2 fL (80.0-100.0); Mean Platelet Volume 9.8 fL (7.0-11.0); Mono # (Auto) 0.9 th/mm3 (0.0-0.9); Neut # (Auto) 9.7 th/mm3 (1.8-7.7); Neut % (Auto) 72.8 % (16.0-70.0); Platelet Count 158 th/mm3 (150-450); Red Blood Count 2.84 mil/mm3 (4.00-5.30); White Blood Count 13.4 th/mm3 (4.0-11.0)
[2018-09-26 07:52] LABS: Ovalocytes 1+; Tear Drop Cells 1+; Toxic Granulation 1+; Toxic Vacuolation Present
[2018-09-26 07:53] LABS: Acanthocytes Occ; Burr Cells 1+; Platelet Estimate Normal (Normal)
[2018-09-26] MEDS: Nadolol 40 MG Tablet PO SCH (08:32)
[2018-09-26] MEDS: Multivitamin/Minerals Therapeutic Tablet PO SCH (08:33)
[2018-09-26] MEDS: Folic Acid 1 MG Tablet PO SCH (08:33)
[2018-09-26] MEDS: Sodium Chloride 0.9% 2 ML Flush BID IV.FLUSH SCH ×2 (08:33→21:22)
[2018-09-26] MEDS ORDERED: Levothyroxine 75 MCG Tablet PO SCH (09:00)
[2018-09-26] MEDS ORDERED: Spironolactone 50 MG Tablet PO SCH (09:00)
--- NOTE | 2018-09-26 10:12 | P.HPIM ---
History of Present Illness Primary Care Physician: KEY Erickson is a 53 year old female with past medical history of alcoholic cirrhosis , hypothyroidism, IBS amongst other medical problems who presents to the ED for fall and worsening weakness. Patient of note recently hospitalized for liver failure and recently discharged. Patient reports since her recent discharge she has been phyically deconditioned and weak. Yesterday patient went to the store and walked through the store but tripped over her feet and hit the floor with her face as she was unable to brace herself. Patient came to the ED with imaging not showing acute facial fractures but given her cough a CT was done showing possible lung infiltrates concerning for pneumonia. Patient denied sick contacts. ROS (+) cough, fever, chills, non bloody emesis, weakness. ROS (-) wheezing, chest pain, palpitations, dizziness. CT face with non displaced fracture, nothing acute. Inpatient Certification Inpatient Certification: I certify that the inpatient services were ordered in accordance with Medicare regulations governing the order. This includes certification that hospital inpatient services are reasonable and necessary and in the case of services not specified as inpatient-only under 42 CFR 419.22(n), that they are appropriately provided as inpatient services in accordance to with the 2-midnight benchmark under 43 CFR 412.3(e) Estimated Total Length of Stay (Days): 3 Plans for Post Hospital Care: Not yet determined Review of Systems Review of Systems: all other systems reviewed are negative [facility] Medical History Medical History Anxiety (Acute) Chronic back pain (Acute) Duodenitis (Acute) GERD (gastroesophageal reflux disease) (Acute) Gastritis (Acute) Hepatic steatosis (Acute) History of alcohol abuse (Acute) Hyperlipidemia (Acute) Hypothyroidism (Acute) IBS (irritable bowel syndrome) (Acute) Surgical History Surgical History H/O esophagogastroduodenoscopy (Acute) History of abdominoplasty (Acute) History of breast augmentation (Acute) History of rhinoplasty (Acute) Hx of section (Acute) Hx of cholecystectomy (Acute) Hx of tubal ligation (Acute) Hx of hysterectomy (Resolved) Family History Family History Father Heart disease Coronary artery disease Colon cancer Stroke Mother Lung cancer Brother Throat cancer Social History Social History Substance History: Past History Second Hand Smoke Exposure: No Smoking Status: Former smoker Tobacco Type: Cigarettes How Often Do You Have a Drink Containing Alcohol: Never Recent Travel in [facility] within the Last 8 Weeks: No Recent Out of Country Travel within the Last 8 Weeks: No Immunization History Tetanus Immunization: Unsure Medications and Allergies Allergies Allergy/AdvReac Type Severity Reaction Status Date / Time clarithromycin Allergy Severe VOMITING, Verified 09/02/18 19:47 DIARRHEA metronidazole AdvReac Intermediate Nausea/Vomi Verified 09/02/18 19:47 ting NSAIDS (Non-Steroidal AdvReac Intermediate Nausea/Vomi Verified 09/02/18 19:47 Anti-Inflamma ting aspirin AdvReac Diarrhea Verified 09/02/18 19:47 diphenhydramine AdvReac Anxiety Verified 09/02/18 19:47 [From Benadryl] Active Medications: Active Medications Flumazenil (Romazicon Inj) 0.2 mg IV.PUSH Q1M PRN PRN Reason: OVERSEDATION Folic Acid (Folic Acid) 1 mg PO DAILY [facility] Stop: 10/01/18 08:59 Last Admin: 09/26/18 08:33 Dose: 1 mg Haloperidol Lactate (Haldol Inj) 1 mg IV.PUSH Q15M PRN PRN Reason: for severe agitation Vancomycin HCl 1,000 mg/ (Sodium Chloride) 250 mls @ 250 mls/hr IV.SIG OFFSET PLATE MAKER [facility] Piperacillin/Tazobactam/Dextrose (Zosyn 4.5 Gm Premix) 4.5 gm in 100 mls @ 200 mls/hr IV.SIG Q6H [facility] Last Infusion: 09/26/18 08:06 Dose: Infused Lactulose (Lactulose Liq) 30 ml PO DAILY [facility] Last Admin: 09/26/18 08:32 Dose: 30 ml Levothyroxine Sodium (Synthroid) 75 mcg PO DAILY [facility] Last Admin: 09/26/18 08:33 Dose: 75 mcg Lorazepam (Ativan) 1 mg PO Q4H PRN PRN Reason: for CIWA 8-10 Lorazepam (Ativan) 2 mg PO Q2H PRN PRN Reason: for CIWA 11-14 Lorazepam (Ativan Inj) 2 mg IV.PUSH Q2H PRN PRN Reason: for CIWA 11-14 Lorazepam (Ativan Inj) 2 mg IV.PUSH Q15M PRN PRN Reason: for CIWA > 20 Lorazepam (Ativan Inj) 1 mg IV.PUSH Q4H PRN PRN Reason: for CIWA 8-10 Lorazepam (Ativan Inj) 2 mg IV.PUSH Q1H PRN PRN Reason: for CIWA 15-20 Multivitamins/Minerals (Theragran-M) 1 tab PO DAILY [facility] Stop: 10/01/18 08:59 Last Admin: 09/26/18 08:33 Dose: 1 tab Nadolol (Corgard) 40 mg PO DAILY [facility] Last Admin: 09/26/18 08:32 Dose: 40 mg Ondansetron HCl (Zofran Inj) 4 mg IV.PUSH Q6H PRN PRN Reason: NAUSEA OR VOMITING Last Admin: 09/26/18 09:53 Dose: 4 mg Pantoprazole Sodium (Protonix) 40 mg PO DAILY [facility] Last Admin: 09/26/18 08:32 Dose: 40 mg Pharmacy Profile Note (Vancomycin Consult Pharmacy) 1 each OTHER UNSCH PRN PRN Reason: Pharmacy to dose Sodium Chloride (Ns Flush) 2 ml IV.FLUSH BID [facility] Last Admin: 09/26/18 08:33 Dose: 2 ml Sodium Chloride (Ns Flush) 2 ml IV.FLUSH PRN PRN PRN Reason: FLUSH AFTER USING IV ACCESS Spironolactone (Aldactone) 50 mg PO DAILY [facility] Last Admin: 09/26/18 08:32 Dose: 50 mg Thiamine HCl (Vitamin B1) 100 mg PO DAILY [facility] Last Admin: 09/26/18 08:34 Dose: 100 mg Venlafaxine HCl (Effexor) 25 mg PO DAILY [facility] Last Admin: 09/26/18 08:32 Dose: 25 mg Physical Exam Vital signs: Vital Signs 09/25/18 18:22 09/26/18 00:02 09/26/18 01:44 Temperature 99.0 F 100.1 F H Pulse Rate 83 88 Respiratory Rate 20 16 16 Blood Pressure 108/53 L 107/58 L Pulse Oximetry 99 100 09/26/18 02:45 09/26/18 02:46 09/26/18 04:44 Temperature 99.2 F 98.3 F Pulse Rate 85 84 Respiratory Rate 16 16 Blood Pressure 105/53 L 94/49 L Pulse Oximetry 100 100 09/26/18 07:00 09/26/18 07:10 09/26/18 08:00 Temperature 99.6 F Pulse Rate 96 H 95 H 84 Respiratory Rate 17 17 Blood Pressure 106/58 L Pulse Oximetry 100 09/26/18 08:36 09/26/18 10:00 Temperature 99.2 F 99 F Pulse Rate 87 89 Respiratory Rate 17 17 Blood Pressure 108/55 L 109/60 Pulse Oximetry 100 99 Intake & Output 09/25/18 09/26/18 09/26/18 18:59 06:59 18:59 Intake Total 1820 / 1820 100 / 100 Balance 1820 / 1820 100 / 100 Weight 58.967 kg Intake: IV 1500 / 1500 100 / 100 Levaquin 750 mg Premix Inj 150 150 / 150 ML @ 100 mls/hr IV.SIG ONCE ONE Rx#:[id number] Zosyn 4.5 GM Premix 4.5 gm In 100 / 100 100 / 100 100 ml @ 200 mls/hr IV.SIG Q6H [facility] Rx#:[id number] NS Inj 1,000 ML @ 1000 mls/hr 1000 / 1000 IV.SIG BOLUS [facility] Rx#:[id number] Vancomycin Inj 1,000 MG In NS 250 / 250 Inj 250 ML @ 250 mls/hr IV.SIG ONCE ONE Rx#:[id number] Oral 320 / 320 Results Labs CBC & Chem 7: 09/26/18 05:15 09/26/18 05:15 Imaging Impressions Cervical Spine CT 09/25/18 19:36 CONCLUSION: 1. Stable 2 mm retrolisthesis of C3 on C4 presumably degenerative in etiology. 2. No acute fracture. 3. New partially imaged nearly masslike airspace consolidations at the lung apices measuring 2.5 cm on the right and 2 cm on the left. Differential considerations include focal pneumonia, aspiration, atypical infection or less likely septic emboli. Clinical correlation is recommended. Face CT 09/25/18 19:36 CONCLUSION: 1. Nondisplaced fractures involving the nasal bones and nasal septum. 2. Right frontal soft tissue swelling. Head CT 09/25/18 19:36 CONCLUSION: 1. No acute intracranial abnormality. . . Chest CTA 09/25/18 20:51 CONCLUSION: 1. Scattered infiltrates/groundglass densities in both lungs. Diagnostic considerations include bilateral pneumonic infiltrates or hypersensitivity pneumonitis. 2. CT findings of cirrhosis with ascites. Caprini VTE Risk Assessment Caprini VTE Risk Assessment: No/Low Risk (score <= 1) Caprini Risk Assessment Model: Point Value = 1 Point Value = 2 Point Value = 3 Point Value = 5 Age 41-60 Minor surgery BMI > 25 kg/m2 Swollen legs Varicose veins or History of unexplained or recurrent spontaneous Oral contraceptives or hormone replacement Sepsis (< 1 month) Serious lung disease, including pneumonia (< 1 month) Abnormal pulmonary function Acute myocardial infarction Congestive heart failure (< 1 month) History of inflammatory bowel disease Medical patient at bed rest Age 61-74 Arthroscopic surgery Major open surgery (> 45 min) Laparoscopic surgery (> 45 min) Malignancy Confined to bed (> 72 hours) Immobilizing plaster cast Central venous access Age >= 75 History of VTE Family history of VTE Factor V Leiden Prothrombin [id number] Lupus anticoagulant Anticardiolipin antibodies Elevated serum homocysteine Heparin-induced thrombocytopenia Other congenital or acquired thrombophilia Stroke (< 1 month) Elective arthroplasty Hip, pelvis, or leg fracture Acute spinal cord injury (< 1 month) Prophylaxis Regimen: Total Risk Factor Score Risk Level Prophylaxis Regimen 0-1 Low Early ambulation 2 Moderate Order ONE of the following: *Sequential Compression Device (SCD) *Heparin 5000 units SQ BID 3-4 Higher Order ONE of the following medications: *Heparin 5000 units SQ TID *Enoxaparin/Lovenox 40 mg SQ daily (WT < 150 kg, CrCl > 30 mL/min) *Enoxaparin/Lovenox 30 mg SQ daily (WT < 150 kg, CrCl > 10-29 mL/min) *Enoxaparin/Lovenox 30 mg SQ BID (WT < 150 kg, CrCl > 30 mL/min) AND/OR *Sequential Compression Device (SCD) 5 or more Highest Order ONE of the following medications: *Heparin 5000 units SQ TID (Preferred with Epidurals) *Enoxaparin/Lovenox 40 mg SQ daily (WT < 150 kg, CrCl > 30 mL/min) *Enoxaparin/Lovenox 30 mg SQ daily (WT < 150 kg, CrCl > 10-29 mL/min) *Enoxaparin/Lovenox 30 mg SQ BID (WT < 150 kg, CrCl > 30 mL/min) AND *Sequential Compression Device (SCD) Assessment and Plan Plan Patient is a 62 year old female with extensive pmhx including cirrhosis, hypothyrodism, IBS and GERD who presents with weakness/fall noted on CT imaging with consolidations and elevated WBC concerning for new CAP following recent hospitalization at [facility] for GIB. Pulmonary/Infectious disease: CAP - sputum culture, blood culture - legionella, pneumococcal antigens - IVF hydration given cannot tolerate PO ( NS @ 75cc/hr) - Abx: vancomycin and zosyn Gastroenterology: Nausea/vomiting, Cirrhosis - zofran prn as needed - IVF hydration - LFT's daily - lipase levels to r/o pancreatitis as well - continue spirnolactone, nadolol when tolerating oral. in setting of dec PO intake will hold BP medications for now Endocrinology: hypothyrodism - 75mg PO approx 50mg IV synthroid daily. convert back to PO when tolerating code: fc dvt ppx: hep dispo: med/surg unit plan discussed with patient at the bedside
[2018-09-26] MEDS ORDERED: Sod Chloride 0.9% Inj 1,000 ML IV.CONT SCH (10:30)
[2018-09-26] MEDS: Pantoprazole Inj 40 MG Vial IV.PUSH SCH (11:13)
[2018-09-26] MEDS ORDERED: Sod Chloride 0.9% Inj 1,000 ML IV.SIG ONE (15:00)
[2018-09-26] MEDS: Vancomycin Inj 750 MG in Sodium Chlor 0.9% Inj 250 ML IV.SIG SCH (16:14)
[2018-09-26] MEDS ORDERED: Acetaminophen 325 MG Tablet PO ONE (18:30)
[2018-09-27] MEDS: Piperacil/Tazo 4.5 GM Premix 4.5 GM/100 ML BAG IV.SIG SCH ×4 (01:41→20:20)
[2018-09-27] MEDS: Vancomycin Inj 750 MG in Sodium Chlor 0.9% Inj 250 ML IV.SIG SCH ×2 (05:10→15:57)
[2018-09-27 05:33] LABS: Hematocrit 26.9 % (35.0-46.0); Hemoglobin 9.1 gm/dL (11.6-15.3); Mean Corpuscular Hemoglobin 35.2 pg (27.0-34.0); Mean Corpuscular Volume 103.8 fL (80.0-100.0); Mean Platelet Volume 9.7 fL (7.0-11.0); Platelet Count 157 th/mm3 (150-450); Red Blood Count 2.59 mil/mm3 (4.00-5.30); Red Cell Distribution Width 16.6 % (11.6-17.2)
[2018-09-27] MEDS ORDERED: Levothyroxine 75 MCG Tablet PO SCH (06:00)
[2018-09-27 06:01] LABS: Calcium 7.9 mg/dL (8.5-10.1); Carbon Dioxide 22.4 meq/L (21.0-32.0); Magnesium 1.8 mg/dL (1.5-2.5); Potassium 3.4 meq/L (3.5-5.1)
[2018-09-27] MEDS: Pantoprazole Inj 40 MG Vial IV.PUSH SCH (10:20)
[2018-09-27] MEDS: Nadolol 40 MG Tablet PO SCH (10:49)
[2018-09-27] MEDS: Folic Acid 1 MG Tablet PO SCH (10:49)
[2018-09-27] MEDS: Multivitamin/Minerals Therapeutic Tablet PO SCH (10:50)
[2018-09-27] MEDS: Sodium Chloride 0.9% 2 ML Flush BID IV.FLUSH SCH ×2 (10:51→20:20)
[2018-09-27] MEDS ORDERED: Pharmacy Ordered Lab Info OTHER ONE (14:45)
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
[2018-09-27] MEDS ORDERED: MORPHINE SULFATE IV.PUSH PRN ×2 (14:54→15:00)
[2018-09-27] MEDS: Morphine Sulfate Inj 2 MG/ML Vial IV.PUSH PRN ×2 (16:07→20:19)
[2018-09-28] MEDS: Morphine Sulfate Inj 2 MG/ML Vial IV.PUSH PRN ×5 (00:37→21:02)
[2018-09-28] MEDS: Piperacil/Tazo 4.5 GM Premix 4.5 GM/100 ML BAG IV.SIG SCH ×5 (02:33→21:01)
[2018-09-28] MEDS: Vancomycin Inj 750 MG in Sodium Chlor 0.9% Inj 250 ML IV.SIG SCH ×2 (03:28→15:39)
[2018-09-28] MEDS: Levothyroxine 75 MCG Tablet PO SCH (05:31)
[2018-09-28] MEDS: Pantoprazole Inj 40 MG Vial IV.PUSH SCH (08:45)
[2018-09-28] MEDS: Sodium Chloride 0.9% 2 ML Flush BID IV.FLUSH SCH ×2 (08:45→21:09)
[2018-09-28 09:16] LABS: Glomerular Filtration Rate Greater Than 89 mL/min (>89)
[2018-09-28] MEDS: Nadolol 40 MG Tablet PO SCH (10:07)
[2018-09-28] MEDS: Folic Acid 1 MG Tablet PO SCH (10:08)
[2018-09-28] MEDS: Multivitamin/Minerals Therapeutic Tablet PO SCH (10:09)
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
[2018-09-28 12:18] LABS: Baso # (Auto) 0.2 th/mm3 (0.0-0.2); Baso % (Auto) 1.6 % (0.0-2.0); Eos # (Auto) 0.7 th/mm3 (0.0-0.4); Eos % (Auto) 5.1 % (0.0-4.0); Hemoglobin 9.7 gm/dL (11.6-15.3); Lymph # (Auto) 2.5 th/mm3 (1.0-4.8); Lymph % (Auto) 19.5 % (9.0-44.0); Mean Corpuscular HGB Conc 34.7 % (32.0-36.0); Mean Corpuscular Hemoglobin 36.1 pg (27.0-34.0); Mean Corpuscular Volume 104.2 fL (80.0-100.0); Mean Platelet Volume 9.5 fL (7.0-11.0); Mono # (Auto) 0.9 th/mm3 (0.0-0.9); Mono % (Auto) 6.9 % (0.0-8.0); Neut # (Auto) 8.7 th/mm3 (1.8-7.7); Neut % (Auto) 66.9 % (16.0-70.0); Platelet Count 133 th/mm3 (150-450); Red Blood Count 2.69 mil/mm3 (4.00-5.30); Red Cell Distribution Width 16.6 % (11.6-17.2); White Blood Count 12.9 th/mm3 (4.0-11.0)
[2018-09-28 12:44] LABS: Calcium 8.3 mg/dL (8.5-10.1); Carbon Dioxide 23.5 meq/L (21.0-32.0); Potassium 3.2 meq/L (3.5-5.1)
--- NOTE | 2018-09-28 14:29 | US ---
EXAM DATE: 09/28/2018 2:21 PM EST AGE/SEX: 53 years / Female INDICATIONS: Ascites. CLINICAL DATA: This is the patient's subsequent encounter. Patient reports that signs and symptoms h ave been present for 1 month and indicates a pain score of 4/10. MEDICAL/SURGICAL HISTORY: Gastroesophageal reflux disease. Hypothyroidism. Anxiety. Duodenitis . Hepatic steatosis. Hyperlipidemia. IBS. section. Cholecystectomy. Hysterectomy. [place] st augmentation. Rhinoplasty. Tubal ligation. Abdominoplasty. Esophagogoastroduodenoscopy. [place] [facility] [place]/O CONTRAST, 09/03/2018. . FINDINGS: Small amount of ascites in all 4 quadrants. Insufficient amount of fluid for marking for pa racentesis. CONCLUSION: Small amount of ascites. Electronically signed by: Lionel Downing MD Board Certified Radiologist 09/28/2018 2:27 PM EST
[2018-09-28] MEDS: Haloperidol Inj 5 MG/ML Ampul IV.PUSH PRN ×2 (15:40→19:13)
[2018-09-28 16:44] LABS: Amphetamine Screen,Urine Neg (Neg); Barbiturate Screen,Urine Neg (Neg); Cannabinoid Screen,Urine Pos (Neg); Cocaine Screen,Urine Neg (Neg)
[2018-09-28 16:45] LABS: Opiate Screen,Urine Pos (Neg)
[2018-09-29] MEDS: Morphine Sulfate Inj 2 MG/ML Vial IV.PUSH PRN ×6 (01:05→21:27)
[2018-09-29] MEDS: Piperacil/Tazo 4.5 GM Premix 4.5 GM/100 ML BAG IV.SIG SCH ×4 (02:29→21:27)
[2018-09-29] MEDS ORDERED: Pharmacy Ordered Lab Info OTHER ONE (02:45)
[2018-09-29] MEDS: Vancomycin Inj 750 MG in Sodium Chlor 0.9% Inj 250 ML IV.SIG SCH ×2 (03:36→15:18)
[2018-09-29] MEDS: Levothyroxine 75 MCG Tablet PO SCH (05:04)
[2018-09-29] MEDS: Pantoprazole Inj 40 MG Vial IV.PUSH SCH (08:11)
[2018-09-29] MEDS: Sodium Chloride 0.9% 2 ML Flush BID IV.FLUSH SCH ×2 (08:13→21:28)
[2018-09-29] MEDS: Nadolol 40 MG Tablet PO SCH (09:09)
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
[2018-09-29] MEDS: Folic Acid 1 MG Tablet PO SCH (13:21)
[2018-09-29] MEDS: Multivitamin/Minerals Therapeutic Tablet PO SCH (13:22)
--- NOTE | 2018-09-29 13:29 | P.DIET ---
Nutritional Evaluation Type of nutrition evaluation: initial [place] [facility] [place] Subjective Subjective Comments: Eating only 0-25%. Reports that she likes the supplements (Ensure Enlive). Objective - Diagnosis B Pneumonia, Hospital Acquired - Objective % IBW: 124 (IBW = 105#) Body Weight Used for Calculations: Actual Energy Needs - Lower Range (kCal/kg): 25 Energy Needs - Upper Range (kCal/kg): 30 Lower Limit kCal/kg (kCals): 1,478 Upper Limit kCal/kg (kCals): 1,773 Lower Limit Protein Factor (Grams per Kg): 1.0 Upper Limit Protein Factor (Grams per Kg): 1.5 Lower Protein Needs (Protein): 59 Upper Protein Needs (Protein): 89 Dietitian Reviewed in Medical Record: Current diet, Curent medications, Intake & Output, Labs, Medical history Diet Order: Cardiac with Ensure Enlive tid Oral Diet Intake Amount: Poor <50% Objective Comments: Meds include folic acid, lactulose, Synthroid, MVI/min, thiamin, Protonix Assessment Assessment: Pt is at high nutrition risk 2' to dx and very poor po intake. Supplements have already been ordered; Ensure Enlive tid will provide 350 kcals and 20 gms protein in an 8 oz serving. Pt may benefit from an appetite stimulant. RD will follow. Recommendations: Continue current diet with supplements Consider an appetite stimulant (Marinol) RD following Dietitian to Monitor: Lab values, Supplement acceptance, Intake & Output, Diet tolerance, Weight change, PO Intake, Medical course
[2018-09-30] MEDS: Sodium Chloride 0.9% 2 ML Flush PRN IV.FLUSH ×3 (00:10→06:24)
[2018-09-30] MEDS: Morphine Sulfate Inj 2 MG/ML Vial IV.PUSH PRN ×5 (01:36→17:47)
[2018-09-30] MEDS: Piperacil/Tazo 4.5 GM Premix 4.5 GM/100 ML BAG IV.SIG SCH ×2 (01:37→09:44)
[2018-09-30] MEDS: Vancomycin Inj 750 MG in Sodium Chlor 0.9% Inj 250 ML IV.SIG SCH (03:10)
[2018-09-30] MEDS: Levothyroxine 75 MCG Tablet PO SCH (05:23)
[2018-09-30 08:31] VITALS: RESP 18
[2018-09-30] MEDS: Folic Acid 1 MG Tablet PO SCH ×2 (09:54→15:40)
[2018-09-30] MEDS: Multivitamin/Minerals Therapeutic Tablet PO SCH ×2 (09:54→15:40)
[2018-09-30] MEDS: Pantoprazole Inj 40 MG Vial IV.PUSH SCH (09:54)
[2018-09-30] MEDS: Nadolol 40 MG Tablet PO SCH (09:54)
[2018-09-30] MEDS: Sodium Chloride 0.9% 2 ML Flush BID IV.FLUSH SCH (09:55)
[2018-09-30 12:43] VITALS: PULSE 72; TEMP 98; O2SAT 98
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
[2018-09-30 15:25] LABS: Calcium 8.6 mg/dL (8.5-10.1); Carbon Dioxide 21.5 meq/L (21.0-32.0); Potassium 3.4 meq/L (3.5-5.1)
[2018-09-30 16:39] VITALS: BP 115/55
[2018-09-30] MEDS ORDERED: Amoxicillin/Clavulanate 875/125 MG Tablet PO SCH (21:00)
[2018-10-01] MEDS ORDERED: Pharmacy Ordered Lab Info OTHER ONE (02:45)
[2018-10-01] MEDS ORDERED: levoFLOXacin 500 MG Tablet PO SCH (09:00)
== END 2018-09-30 18:12 | disposition home or self-care (01) | DRG 195 ==
LOC: NEPB 18:07 → NEDA 23:47 → NEDH 09-26 05:56 → N04 09-26 11:20
PROVIDERS: ADMIT Internal Medicine; ATTEND Internal Medicine
DX: S02.2XXA Fracture of nasal bones, initial encounter for closed fracture; W01.0XXA Fall on same level from slipping, tripping and stumbling without subsequent striking against object, initial encounter; Z88.6 Allergy status to analgesic agent; K70.31 Alcoholic cirrhosis of liver with ascites; M54.2 Cervicalgia; Z91.410 Personal history of adult physical and sexual abuse; K58.9 Irritable bowel syndrome, unspecified; E87.6 Hypokalemia; F41.9 Anxiety disorder, unspecified; G89.29 Other chronic pain; Z88.1 Allergy status to other antibiotic agents; K21.9 Gastro-esophageal reflux disease without esophagitis; E78.5 Hyperlipidemia, unspecified; Y95 Nosocomial condition; J18.9 Pneumonia, unspecified organism; M54.9 Dorsalgia, unspecified; E03.9 Hypothyroidism, unspecified; Z87.891 Personal history of nicotine dependence; F10.10 Alcohol abuse, uncomplicated; Y92.512 Supermarket, store or market as the place of occurrence of the external cause
CPT/HCPCS: 70450; 70486; 71275; 72125; 76705; 76937; 80048; 80053; 80202; 80307; 82140; 82565; 82948; 82962; 83605; 83690; 83735; 85025; 85027; 85610; 87040; 87449; 90761; 90774; 90784; 96361; 96374; 97110; 97116; 97163; 99285; C8952; C9113; J1630; J1956; J2270; J2405; J2543; J3370; J7030; J7050; L0150; Q9967